=== PATIENT | female | born 1995 | race Caucasian/White ===

== ENCOUNTER 2022-05-12 10:54 | Inpatient (IN) | payer OTHER, SELFPAY ==
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
[2022-05-12 11:31] VITALS: BP 104/47; BP 118/78; PULSE 67; PULSE 80; RESP 16; TEMP 36.3; O2SAT 98; BMI 17.7
[2022-05-12 12:54] LABS: MANUAL DIFF FLAG NO
[2022-05-12 12:56] LABS: Basophils Percent Auto 0.4 % (0-2); Eosinophils Percent Auto 0.1 % (0-4); Hematocrit 42.8 % (37.0-47.0); Hemoglobin 14.8 g/dl (12.0-16.0); Imm Gran Abs Auto 0.03 X10*3/uL (0.00-0.03); Imm Gran Pct Auto 0.4 % (0.0-0.4); Lymphocytes Absolute Auto 1.2 X10*3/uL (1.2-4.9); Mean Corpuscular HGB Conc 34.6 g/dl (31.0-35.0); Mean Corpuscular Hemoglobin 31.3 pg (27.0-33.0); Mean Corpuscular Volume 90.5 fL (80.0-98.0); Mean Platelet Volume 9.2 fL (9.4-12.3); Monocytes Absolute Auto 0.3 X10*3/uL (0.1-1.2); Monocytes Percent Auto 3.8 % (2-11); Neutrophils Absolute Auto 5.9 x10*3/uL (2.0-8.3); Neutrophils Percent Auto 79.3 % (45-73); Platelet Count 359 X10*3/uL (160-400); Red Blood Count 4.73 X10*6/uL (4.20-5.50); Red Cell Distribution Width 13.5 % (11.0-16.0); White Blood Count 7.4 X10*3/uL (4.8-10.8)
[2022-05-12 13:26] LABS: Alanine Aminotransferase 75 U/L (0-31); Albumin Level 5.3 g/dL (3.5-5.0); Alkaline Phosphatase 77 U/L (39-117); Anion Gap 17 (12-20); Aspartate Amino Transferase 19 U/L (5-31); Bilirubin Total 1.7 mg/dL (0.0-1.0); Blood Urea Nitrogen 18 mg/dL (9-16); Calcium 9.9 mg/dL (8.4-10.2); Carbon Dioxide 23 mmol/L (22-29); Chloride 102 mmol/L (96-108); Creatinine Clr Calc Pharmacy 67.7; Estimated Glomerular Filt Rate > 60; Ethanol < 10 mg/dL; Glucose Random 238 mg/dL (60-115); Potassium 3.9 mmol/L (3.3-5.1); Sodium 138 mmol/L (135-145); Total Protein 8.4 g/dL (6.5-8.0)
[2022-05-12 14:09] LABS: Acetaminophen LAB < 1 mcg/mL (<30); Salicylate < 5.0 mg/dL (15-30)
--- NOTE | 2022-05-12 15:33 | MHC.CARE ---
Care Team attempted to meet with pt in Pod room 4, however, pt requested to meet at a later time because she is tired and wants to rest.
--- NOTE | 2022-05-12 17:12 | MHC.CARE ---
Care Team attempted to meet with pt in Pod room 4, however, pt was asleep. Purpose of visit was to complete an evaluation with pt. T/w will re-attempt to meet with pt at a later time.
[2022-05-12 23:13] LABS: COVID-19 Test Negative (Negative)
[2022-05-12 23:20] VITALS: BP 114/77; PULSE 68; RESP 16; TEMP 36.5; O2SAT 98
[2022-05-13] MEDS: LORazepam 1 MG TABLET 2 MG PO (00:09)
--- NOTE | 2022-05-13 06:26 | PC.NURSE ---
Patient slept through the night, no distress observed/reported, thought content paranoid, med rec completed however per mother patient has not been taking her medication, Ativan 2 mg PO administered at 0009 with positive effect, behavior non concerning, disposition per care team is section 12 inpatient bed search, urine pending, VSS, will continue to monitor.
[2022-05-13 12:20] LABS: Appearance Urine Clear; Color Urine Yellow; Glucose Urine UA Negative (Negative); Leukocyte Esterase Urine Negative (Negative); Nitrite Urine Negative (Negative); PH 5.5 (5.0-9.0); Specific Gravity - Urine 1.025 (1.005-1.025); Urine Blood Negative (Negative); Urine Ketones Negative (Negative); Urine Protein Negative (Neg-Trace)
[2022-05-13 12:21] LABS: UPreg QC Valid YES; Urine Pregnancy NEGATIVE (NEGATIVE)
[2022-05-13 12:26] VITALS: BP 116/77; PULSE 107; RESP 16; O2SAT 95
[2022-05-13 12:31] LABS: Amphetamine Screen Urine Not Detected (Not Detect); Barbiturates, Urine Not Detected (Not Detect); Benzodiazepines Screen Urine Not Detected (Not Detect); Cannabinoid Screen Urine POSITIVE (Not Detect); Cocaine Screen Urine Not Detected (Not Detect); Fentanyl, urine Not Detected (Not Detect); Opiate Screen Urine Not Detected (Not Detect); Phencyclidine Screen Urine Not Detected (Not Detect)
--- NOTE | 2022-05-13 12:46 | PC.NURSE ---
nurse to nurse given
[2022-05-13 17:20] VITALS: BP 123/74; PULSE 95; TEMP 36.6
[2022-05-13] MEDS: OLANZapine 10 MG TABLET PO (21:18)
[2022-05-13] MEDS: hydrOXYzine HCL 25 MG TABLET PO (21:19)
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
[2022-05-14 08:07] VITALS: BP 100/55; PULSE 72; RESP 16; TEMP 36.8; O2SAT 96
[2022-05-14 08:25] LABS: Estimated Average Glucose 91 mg/dL; Hemoglobin A1c % 4.8 %
[2022-05-14 08:46] LABS: Alanine Aminotransferase 42 U/L (0-31); Albumin Level 4.2 g/dL (3.5-5.0); Alkaline Phosphatase 61 U/L (39-117); Anion Gap 15 (12-20); Aspartate Amino Transferase 15 U/L (5-31); Bilirubin Total 0.7 mg/dL (0.0-1.0); Blood Urea Nitrogen 13 mg/dL (9-16); Calcium 9.2 mg/dL (8.4-10.2); Carbon Dioxide 24 mmol/L (22-29); Chloride 104 mmol/L (96-108); Cholesterol 191 mg/dL; Creatinine Clr Calc Pharmacy 93.2; Estimated Glomerular Filt Rate > 60; Glucose Fasting 89 mg/dL (60-99); HDL Cholesterol 56 mg/dL; LDL Cholesterol Calculated 127 mg/dl; Potassium 4.2 mmol/L (3.3-5.1); Sodium 139 mmol/L (135-145); Total Protein 6.7 g/dL (6.5-8.0); Triglycerides 40 mg/dL
[2022-05-14 08:51] LABS: Free T4 (Free Thyroxine) 1.09 ng/dL (0.71-1.85); Thyroid Stimulating Hormone 0.78 uIU/mL (0.32-4.0)
[2022-05-14 09:01] LABS: Folate 8.9 ng/mL (> or = 4.0); Vitamin B12 277 pg/mL (200-900)
[2022-05-14] MEDS: hydrOXYzine HCL 25 MG TABLET PO ×2 (09:06→20:04)
[2022-05-14] MEDS: Cyanocobalamin (Vitamin B-12) 100 MCG TABLET PO (09:06)
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
[2022-05-14 17:20] VITALS: BP 120/74; PULSE 97; TEMP 36.6
[2022-05-14] MEDS: OLANZapine 10 MG TABLET PO (20:04)
[2022-05-15 00:29] VITALS: TEMP 37.1
[2022-05-15 06:00] VITALS: BP 125/66; PULSE 104; RESP 14; TEMP 36.4; O2SAT 96
[2022-05-15] MEDS: Cyanocobalamin (Vitamin B-12) 100 MCG TABLET PO (08:35)
[2022-05-15] MEDS: hydrOXYzine HCL 25 MG TABLET PO ×2 (08:35→20:32)
--- NOTE | 2022-05-15 10:15 | PC.NURSE ---
PT signed a three-day notice on 05/15. Up 05/18.
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
[2022-05-15 18:00] VITALS: BP 122/79; PULSE 82; RESP 16; TEMP 36.4; O2SAT 99
[2022-05-15] MEDS: OLANZapine 7.5 MG TABLET 15 MG PO (20:32)
[2022-05-16 08:30] VITALS: BP 118/72; PULSE 88; RESP 18; TEMP 36.7; O2SAT 98
[2022-05-16] MEDS: Cyanocobalamin (Vitamin B-12) 100 MCG TABLET PO (10:16)
[2022-05-16] MEDS: hydrOXYzine HCL 25 MG TABLET PO ×2 (10:17→21:44)
[2022-05-16] MEDS: Milk of Magnesia 30 ML ORAL.SUSP PO (11:25)
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
[2022-05-16 18:00] VITALS: BP 145/84; PULSE 100; TEMP 36.6; O2SAT 96
[2022-05-16] MEDS: bisacodyL 5 MG TABLET.DR 10 MG PO (19:24)
[2022-05-16] MEDS: Divalproex Sodium ER 500 MG TAB.ER.24H PO (21:44)
[2022-05-16] MEDS: OLANZapine 10 MG TABLET PO (21:44)
[2022-05-17] MEDS: Cyanocobalamin (Vitamin B-12) 100 MCG TABLET PO (08:41)
[2022-05-17] MEDS: hydrOXYzine HCL 25 MG TABLET PO ×2 (08:41→21:47)
[2022-05-17] MEDS: Milk of Magnesia 30 ML ORAL.SUSP PO (09:50)
[2022-05-17 09:52] VITALS: BP 128/68; PULSE 119; TEMP 37.1; O2SAT 95
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
[2022-05-17 18:00] VITALS: BP 112/63; PULSE 83; RESP 18; TEMP 36.3; O2SAT 98
[2022-05-17] MEDS: Divalproex Sodium ER 500 MG TAB.ER.24H PO (21:47)
[2022-05-17] MEDS: OLANZapine 10 MG TABLET PO (21:48)
[2022-05-18 07:00] VITALS: BMI 18.3
--- NOTE | 2022-05-18 07:07 | HO.PSYCHPN ---
Subjective Subjective Date of Service: 05/18/22 Reason For Visit: Depression Subjective Notes: Conditional Voluntary Healthcare Proxy: No Guardianship: No Medical Problems Affecting Mental Status: No Interim History: Edita would like discharge to return to [place] with her parents when they arrive on 05/19. She has written a list to review with her mother, indicating that she will take medications, attend rehab, stop cannabis and comply with rules which have been set at home. Mother has been talking with Luis F ADAMS and family will not accept this plan-pt will need to remain and transfer to longer term rehab from [facility]-mother has indicated [facility] or [place]. Edita continues to limit the amount of medication she will take. She reports not feeling the environment of the psychiatric unit is beneficial for her to improve. She also is concerned for the health of her cat, which family has found and are making arrangements for care. Medication Compliance: Yes Side effects from medications: No Attending Groups: No Review of Systems Acute medical concerns: No Medical Review of Systems: unchanged Mental Status Exam Mental Status Exam Patient Orientation: Person, Place, Time and Situation Level of Consciousness: Alert Patient Behavior: Talkative and Good Eye Contact Mood Description: Suspicious, Withdrawn and Apprehensive Affect Description: Apprehensive Patient Cognition Impaired: No Ability to Follow Directions: Good Speech Pattern: Spontaneous Speech Memory Description: Remote Impaired and Episodic Impaired Hallucinations: None Delusions: Present Perceptual Disturbances: Depersonalization and Derealization Thought Process: Illogical, Rumination and Goal Oriented Thought Content: positive for Obsessional Thoughts, positive for Circumstantial, positive for Goal Oriented, positive for Perseveration and positive for Preoccupation Depressive Symptoms: Low Self Esteem and Difficulty Concentrating Judgement: Poor Diagnostics Vital Signs (24Hr): Vital Signs - 24 hr 05/17/22 09:52 05/17/22 18:00 Temperature 98.7 F 97.3 F Pulse Rate 119 H 83 Respiratory Rate 18 Blood Pressure 128/68 112/63 Pulse Oximetry 95 98 Oxygen Delivery Method Room Air Room Air BMI result Body Mass Index 17.7 Labs Results: 05/12/22 12:47 05/14/22 07:53 Medications Medications Current Medications Acetaminophen (Acetaminophen 325 Mg Tablet) 650 mg PO Q6H PRN PRN Reason: Headache/Pain Mild Scale (1-3) Al Hydroxide/Mg Hydroxide (Magnesium Hydrox/Alum Hydrox 30 Ml Oral.Susp) 30 ml PO Q6H PRN PRN Reason: Heartburn/Nausea Cyanocobalamin (Cyanocobalamin (Vitamin B-12) 100 Mcg Tablet) 100 mcg PO DAILY [facility] Last Admin: 05/17/22 08:41 Dose: 100 mcg Divalproex Sodium (Divalproex Sodium Er 500 Mg Tab.Er.24h) 500 mg PO BEDTIME [facility] Last Admin: 05/17/22 21:47 Dose: 500 mg Hydroxyzine HCl (Hydroxyzine Hcl 25 Mg Tablet) 25 mg PO BID [facility] Last Admin: 05/17/22 21:47 Dose: 25 mg Hydroxyzine HCl (Hydroxyzine Hcl 50 Mg Tablet) 50 mg PO Q6H PRN PRN Reason: Anxiety Magnesium Hydroxide (Milk Of Magnesia 30 Ml Oral.Susp) 30 ml PO DAILY PRN PRN Reason: Constipation Last Admin: 05/17/22 09:50 Dose: 30 ml Olanzapine (Olanzapine 5 Mg Tablet) 5 mg PO BID PRN PRN Reason: psychosis, severe anxiety Olanzapine (Olanzapine 10 Mg Tablet) 10 mg PO BEDTIME [facility] Last Admin: 05/17/22 21:48 Dose: 10 mg Trazodone HCl (Trazodone Hcl 50 Mg Tablet) 50 mg PO BEDTIME PRN PRN Reason: Insomnia Allergies Allergies Allergy/AdvReac Type Severity Reaction Status Date / Time Penicillins AdvReac Unknown Verified 05/14/22 02:05 Assessment & Plan Assessment & Plan (1) Bipolar affective, manic, severe w/ psych: Status: Acute Code(s): F31.2 - Bipolar disorder, current episode manic severe with psychotic features Plan Admit to 15 minute checks Collaterals Start Zyprexa 10 mg HS and 5 mg BID PRN. Group and milieu treatment Disposition planning 05/15/22- Increase Olanzapine to 15 mg HS Begin reality testing with pt regarding Mr. Way's relationship as outlined in his email response. Three day notice, possible section seven 05/16/22- Depakote ER 500 mg HS Decrease Olanzapine to 10 mg HS 05/17/22- Continue current plan 05/18/22- Pt attempting to negotiate with parents to return to [place]. Parents decline at this time Pt would benefit from medication titration. She refuses at this time. I spent minutes with the patient and/or on the patient floor today, greater than?50% of which was spent counseling/coordinating care. Patient educated on: medication risk/benefits Informed Consent: understands and further education needed Reason for contiued inpatient stay Substantial Risk for: inability to function and rapid decompensation
[2022-05-18 08:16] VITALS: BP 110/69; PULSE 95; TEMP 36.4; O2SAT 96
[2022-05-18] MEDS: Cyanocobalamin (Vitamin B-12) 100 MCG TABLET PO (08:19)
[2022-05-18] MEDS: hydrOXYzine HCL 25 MG TABLET PO ×2 (08:19→19:17)
[2022-05-18] MEDS: OLANZapine 5 MG TABLET PO (10:03)
[2022-05-18 16:02] VITALS: BP 113/76; PULSE 82; TEMP 36.4
[2022-05-18] MEDS: Divalproex Sodium ER 500 MG TAB.ER.24H PO (19:17)
[2022-05-18] MEDS: OLANZapine 10 MG TABLET PO (19:17)
[2022-05-18] MEDS: traZODone HCL 50 MG TABLET PO (20:47)
[2022-05-19 06:00] VITALS: BP 104/56; PULSE 95; RESP 18
[2022-05-19] MEDS: Cyanocobalamin (Vitamin B-12) 100 MCG TABLET PO (09:07)
[2022-05-19] MEDS: hydrOXYzine HCL 25 MG TABLET PO ×2 (09:07→19:55)
--- NOTE | 2022-05-19 17:00 | P.PNPSI_ITS ---
Subjective Subjective Date of Service: 05/19/22 Reason For Visit: Depression Subjective Notes: Conditional Voluntary Healthcare Proxy: No Guardianship: No Medical Problems Affecting Mental Status: No Interim History: Discussed parents refusal to have her return to [place] with Edita and Luis F urias [employer]. Pt accepting of this decision. Parents will visit this weekend. Pt agreeable to rehab. Prefers [place] as [place] sounds too psychiatric . Continues to exhibit difficulty understanding what is needed to appropriately treat this illness and is expressing ongoing resistance. Medication Compliance: Yes Side effects from medications: No Attending Groups: No Review of Systems Acute medical concerns: No Medical Review of Systems: unchanged Mental Status Exam Mental Status Exam Patient Orientation: Person, Place, Time and Situation Level of Consciousness: Alert Patient Behavior: Talkative and Good Eye Contact Mood Description: Suspicious, Withdrawn and Apprehensive Affect Description: Apprehensive Patient Cognition Impaired: No Ability to Follow Directions: Good Speech Pattern: Spontaneous Speech Memory Description: Remote Impaired and Episodic Impaired Hallucinations: None Delusions: Present Perceptual Disturbances: Depersonalization and Derealization Thought Process: Illogical, Rumination and Goal Oriented Thought Content: positive for Obsessional Thoughts, positive for Circumstantial, positive for Goal Oriented, positive for Perseveration and positive for Preoccupation Depressive Symptoms: Low Self Esteem and Difficulty Concentrating Judgement: Poor Diagnostics Vital Signs (24Hr): Vital Signs - 24 hr 05/19/22 06:00 Pulse Rate 95 Respiratory Rate 18 Blood Pressure 104/56 L Oxygen Delivery Method Room Air BMI result Body Mass Index 18.3 Labs Results: 05/12/22 12:47 05/14/22 07:53 Medications Medications Current Medications Acetaminophen (Acetaminophen 325 Mg Tablet) 650 mg PO Q6H PRN PRN Reason: Headache/Pain Mild Scale (1-3) Al Hydroxide/Mg Hydroxide (Magnesium Hydrox/Alum Hydrox 30 Ml Oral.Susp) 30 ml PO Q6H PRN PRN Reason: Heartburn/Nausea Cyanocobalamin (Cyanocobalamin (Vitamin B-12) 100 Mcg Tablet) 100 mcg PO DAILY [facility] Last Admin: 05/19/22 09:07 Dose: 100 mcg Divalproex Sodium (Divalproex Sodium Er 500 Mg Tab.Er.24h) 500 mg PO BEDTIME [facility] Last Admin: 05/18/22 19:17 Dose: 500 mg Hydroxyzine HCl (Hydroxyzine Hcl 25 Mg Tablet) 25 mg PO BID [facility] Last Admin: 05/19/22 09:07 Dose: 25 mg Hydroxyzine HCl (Hydroxyzine Hcl 50 Mg Tablet) 50 mg PO Q6H PRN PRN Reason: Anxiety Magnesium Hydroxide (Milk Of Magnesia 30 Ml Oral.Susp) 30 ml PO DAILY PRN PRN Reason: Constipation Last Admin: 05/17/22 09:50 Dose: 30 ml Olanzapine (Olanzapine 5 Mg Tablet) 5 mg PO BID PRN PRN Reason: psychosis, severe anxiety Last Admin: 05/18/22 10:03 Dose: 5 mg Olanzapine (Olanzapine 10 Mg Tablet) 10 mg PO BEDTIME [facility] Last Admin: 05/18/22 19:17 Dose: 10 mg Trazodone HCl (Trazodone Hcl 50 Mg Tablet) 50 mg PO BEDTIME PRN PRN Reason: Insomnia Last Admin: 05/18/22 20:47 Dose: 50 mg Allergies Allergies Allergy/AdvReac Type Severity Reaction Status Date / Time Penicillins AdvReac Unknown Verified 05/14/22 02:05 Assessment & Plan Assessment & Plan (1) Bipolar affective, manic, severe w/ psych: Status: Acute Code(s): F31.2 - Bipolar disorder, current episode manic severe with psychotic features Plan Admit to M5 15 minute checks Collaterals Start Zyprexa 10 mg HS and 5 mg BID PRN. Group and milieu treatment Disposition planning 05/15/22- Increase Olanzapine to 15 mg HS Begin reality testing with pt regarding Mr. Way's relationship as outlined in his email response. Three day notice, possible section seven 05/16/22- Depakote ER 500 mg HS Decrease Olanzapine to 10 mg HS 05/17/22- Continue current plan 05/19/22- Education regarding illness. Pt will see parents over the weekend. Team is looking at rehab possibilities. I spent minutes with the patient and/or on the patient floor today, greater than?50% of which was spent counseling/coordinating care. Patient educated on: medication risk/benefits and therapeutic strategies Informed Consent: further education needed Reason for contiued inpatient stay Substantial Risk for: rapid decompensation
[2022-05-19 18:43] VITALS: BP 119/69; PULSE 99; TEMP 36.3
[2022-05-19] MEDS: OLANZapine 10 MG TABLET PO (19:55)
[2022-05-19] MEDS: Divalproex Sodium ER 500 MG TAB.ER.24H PO (19:55)
[2022-05-20] MEDS: hydrOXYzine HCL 25 MG TABLET PO ×2 (09:30→20:17)
[2022-05-20] MEDS: Cyanocobalamin (Vitamin B-12) 100 MCG TABLET PO (09:30)
[2022-05-20] MEDS: Multivitamin with Minerals Liq 15 ML LIQUID PO (09:30)
[2022-05-20 09:52] VITALS: BP 114/71; PULSE 80; RESP 18; TEMP 36.4; O2SAT 98
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
[2022-05-20 18:00] VITALS: BP 112/63; PULSE 101; TEMP 36.8; O2SAT 97
[2022-05-20] MEDS: OLANZapine 10 MG TABLET PO (20:17)
[2022-05-20] MEDS: Divalproex Sodium ER 500 MG TAB.ER.24H PO (20:17)
[2022-05-21] MEDS: hydrOXYzine HCL 50 MG TABLET PO (06:10)
[2022-05-21] MEDS: Cyanocobalamin (Vitamin B-12) 100 MCG TABLET PO (09:23)
[2022-05-21] MEDS: hydrOXYzine HCL 25 MG TABLET PO ×2 (09:23→19:50)
[2022-05-21] MEDS: cloNIDine HCL 0.1 MG TABLET PO ×2 (11:35→20:05)
[2022-05-21 13:21] VITALS: BP 96/56; PULSE 102; RESP 18; TEMP 37; O2SAT 98
--- NOTE | 2022-05-21 16:04 | P.PNPSI_ITS ---
Subjective Subjective Date of Service: 05/21/22 Reason For Visit: Depression Interim History: Patient reports that she has bad anxiety throughout the day. She has bad nightmares at night as well. Anesthesiologist discussed clonidine and its risks/side effects and how it could possibly help with anxiety during the day. Patient would like to try it if her blood pressure is high enough. Mental Status Exam Mental Status Exam Patient Orientation: Person, Place, Time and Situation Level of Consciousness: Alert Patient Behavior: Guarded, Talkative and Good Eye Contact Mood Description: Anxious and Apprehensive Affect Description: Apprehensive Patient Cognition Impaired: No Ability to Follow Directions: Fair Speech Pattern: Spontaneous Speech Memory Description: Remote Impaired and Episodic Impaired Hallucinations: None Delusions: Present (not clear) Perceptual Disturbances: Depersonalization and Derealization Thought Process: Goal Oriented Thought Content: positive for Obsessional Thoughts and positive for Goal Oriented Depressive Symptoms: Low Self Esteem and Difficulty Concentrating Judgement: Poor Judgement and Insight: impaired Diagnostics Vital Signs (24Hr): Vital Signs - 24 hr 05/20/22 18:00 05/21/22 13:21 Temperature 98.2 F 98.6 F Pulse Rate 101 H 102 H Respiratory Rate 18 Blood Pressure 112/63 96/56 L Pulse Oximetry 97 98 Oxygen Delivery Method Room Air Room Air BMI result Body Mass Index 18.3 Labs Results: 05/12/22 12:47 05/14/22 07:53 Medications Medications Current Medications Acetaminophen (Acetaminophen 325 Mg Tablet) 650 mg PO Q6H PRN PRN Reason: Headache/Pain Mild Scale (1-3) Al Hydroxide/Mg Hydroxide (Magnesium Hydrox/Alum Hydrox 30 Ml Oral.Susp) 30 ml PO Q6H PRN PRN Reason: Heartburn/Nausea Clonidine HCl (Clonidine Hcl 0.1 Mg Tablet) 0.1 mg PO Q4H PRN; Protocol PRN Reason: anxiety Last Admin: 05/21/22 11:35 Dose: 0.1 mg Cyanocobalamin (Cyanocobalamin (Vitamin B-12) 100 Mcg Tablet) 100 mcg PO DAILY [facility] Last Admin: 05/21/22 09:23 Dose: 100 mcg Divalproex Sodium (Divalproex Sodium Er 500 Mg Tab.Er.24h) 500 mg PO BEDTIME [facility] Last Admin: 05/20/22 20:17 Dose: 500 mg Hydroxyzine HCl (Hydroxyzine Hcl 25 Mg Tablet) 25 mg PO BID [facility] Last Admin: 05/21/22 09:23 Dose: 25 mg Hydroxyzine HCl (Hydroxyzine Hcl 50 Mg Tablet) 50 mg PO Q6H PRN PRN Reason: Anxiety Last Admin: 05/21/22 06:10 Dose: 50 mg Magnesium Hydroxide (Milk Of Magnesia 30 Ml Oral.Susp) 30 ml PO DAILY PRN PRN Reason: Constipation Last Admin: 05/17/22 09:50 Dose: 30 ml Olanzapine (Olanzapine 5 Mg Tablet) 5 mg PO BID PRN PRN Reason: psychosis, severe anxiety Last Admin: 05/18/22 10:03 Dose: 5 mg Olanzapine (Olanzapine 10 Mg Tablet) 10 mg PO BEDTIME [facility] Last Admin: 05/20/22 20:17 Dose: 10 mg Trazodone HCl (Trazodone Hcl 50 Mg Tablet) 50 mg PO BEDTIME PRN PRN Reason: Insomnia Last Admin: 05/18/22 20:47 Dose: 50 mg Allergies Allergies Allergy/AdvReac Type Severity Reaction Status Date / Time Penicillins AdvReac Unknown Verified 05/14/22 02:05 Assessment & Plan Assessment & Plan (1) Bipolar affective, manic, severe w/ psych: Status: Acute Code(s): F31.2 - Bipolar disorder, current episode manic severe with psychotic features Plan Admit to M5 15 minute checks [employer] Start Zyprexa 10 mg HS and 5 mg BID PRN. Group and milieu treatment Disposition planning 05/15/22- Increase Olanzapine to 15 mg HS Begin reality testing with pt regarding Mr. Way's relationship as outlined in his email response. Three day notice, possible section seven 05/16/22- Depakote ER 500 mg HS Decrease Olanzapine to 10 mg HS 05/17/22- Continue current plan 05/19/22- Education regarding illness. Pt will see parents over the weekend. Team is looking at rehab possibilities. 05/20 guarded and not much for engaging; Continue current treatment plan 05/21 says she has bad anxiety -add clonidine 0.1 mg Q 4 p.r.n.; if BP too low can try 0.05 mg I spent minutes with the patient and/or on the patient floor today, greater than?50% of which was spent counseling/coordinating care. Patient educated on: diagnosis and medication risk/benefits Informed Consent: understands Reason for contiued inpatient stay Substantial Risk for: rapid decompensation
[2022-05-21 18:00] VITALS: BP 101/63; PULSE 89; RESP 16; TEMP 36.6; O2SAT 97
[2022-05-21] MEDS: OLANZapine 10 MG TABLET PO (19:50)
[2022-05-21] MEDS: Divalproex Sodium ER 500 MG TAB.ER.24H PO (19:51)
[2022-05-22] MEDS: Acetaminophen 325 MG TABLET 650 MG PO (02:29)
[2022-05-22] MEDS: hydrOXYzine HCL 25 MG TABLET PO ×2 (08:06→20:32)
[2022-05-22] MEDS: Cyanocobalamin (Vitamin B-12) 100 MCG TABLET PO (08:06)
[2022-05-22 08:19] VITALS: BP 100/63; PULSE 73; RESP 14; TEMP 36.8; O2SAT 98
[2022-05-22] MEDS: Ibuprofen 800 MG TABLET PO (14:11)
[2022-05-22] MEDS: cloNIDine HCL 0.1 MG TABLET PO ×2 (14:11→20:32)
--- NOTE | 2022-05-22 17:55 | P.PNPSI_ITS ---
Subjective Subjective Date of Service: 05/22/22 Reason For Visit: Depression Subjective Notes: Conditional Voluntary and 3 Day Healthcare Proxy: No Guardianship: No Medical Problems Affecting Mental Status: No Interim History: Reports clonidine trial was helpful over the weekend and will continue this. Requested Ibuprofen prn which was ordered. Agrees to [employer] application for admission-Family and pt are negotiating aftercare planning at this time. Three day notice submitted. Olanzapine 2.5 mg prn ordered for pt. Currently she is not willing to modify any standing dosages. Consistent in her report of not wanting to be on a psychiatric unit. Medication Compliance: Yes Side effects from medications: No Attending Groups: No Review of Systems Acute medical concerns: No Medical Review of Systems: unchanged Mental Status Exam Mental Status Exam Patient Appearance: Appropriate Patient Orientation: Person, Place, Time and Situation Level of Consciousness: Alert Patient Behavior: Talkative Mood Description: Withdrawn and Depressed Affect Description: Flat Patient Cognition Impaired: No Ability to Follow Directions: Fair Speech Pattern: Spontaneous Speech Memory Description: Episodic Impaired Hallucinations: None (denies) Delusions: Paranoid Ideation Perceptual Disturbances: Depersonalization and Derealization Thought Process: Distracted and Rumination Thought Content: positive for Circumstantial, positive for Suicidal Ideation (denies) and positive for Homicidal Ideation (denies) Depressive Symptoms: Increased Anxiety and Thoughts of /Suicide (denies) Abnormal Motor Activity Signs and Symptoms: Restlessness Judgement: Fair Diagnostics Vital Signs (24Hr): Vital Signs - 24 hr 05/21/22 18:00 05/22/22 08:19 Temperature 98 F 98.2 F Pulse Rate 89 73 Respiratory Rate 16 14 Blood Pressure 101/63 100/63 Pulse Oximetry 97 98 Oxygen Delivery Method Room Air Room Air BMI result Body Mass Index 18.3 Labs Results: 05/12/22 12:47 05/14/22 07:53 Medications Medications Current Medications Acetaminophen (Acetaminophen 325 Mg Tablet) 650 mg PO Q6H PRN PRN Reason: Headache/Pain Mild Scale (1-3) Last Admin: 05/22/22 02:29 Dose: 650 mg Al Hydroxide/Mg Hydroxide (Magnesium Hydrox/Alum Hydrox 30 Ml Oral.Susp) 30 ml PO Q6H PRN PRN Reason: Heartburn/Nausea Clonidine HCl (Clonidine Hcl 0.1 Mg Tablet) 0.1 mg PO Q4H PRN; Protocol PRN Reason: anxiety Last Admin: 05/22/22 14:11 Dose: 0.1 mg Cyanocobalamin (Cyanocobalamin (Vitamin B-12) 100 Mcg Tablet) 100 mcg PO DAILY [facility] Last Admin: 05/22/22 08:06 Dose: 100 mcg Divalproex Sodium (Divalproex Sodium Er 500 Mg Tab.Er.24h) 500 mg PO BEDTIME [facility] Last Admin: 05/21/22 19:51 Dose: 500 mg Hydroxyzine HCl (Hydroxyzine Hcl 25 Mg Tablet) 25 mg PO BID [facility] Last Admin: 05/22/22 08:06 Dose: 25 mg Hydroxyzine HCl (Hydroxyzine Hcl 50 Mg Tablet) 50 mg PO Q6H PRN PRN Reason: Anxiety Last Admin: 05/21/22 06:10 Dose: 50 mg Ibuprofen (Ibuprofen 800 Mg Tablet) 800 mg PO Q8H PRN PRN Reason: Pain, Mild (Pain Scale 1-3) Last Admin: 05/22/22 14:11 Dose: 800 mg Magnesium Hydroxide (Milk Of Magnesia 30 Ml Oral.Susp) 30 ml PO DAILY PRN PRN Reason: Constipation Last Admin: 05/17/22 09:50 Dose: 30 ml Olanzapine (Olanzapine 10 Mg Tablet) 10 mg PO BEDTIME [facility] Last Admin: 05/21/22 19:50 Dose: 10 mg Olanzapine (Olanzapine 2.5 Mg Tablet) 2.5 mg PO BID PRN PRN Reason: psychosis, severe anxiety Trazodone HCl (Trazodone Hcl 50 Mg Tablet) 50 mg PO BEDTIME PRN PRN Reason: Insomnia Last Admin: 05/18/22 20:47 Dose: 50 mg Allergies Allergies Allergy/AdvReac Type Severity Reaction Status Date / Time Penicillins AdvReac Unknown Verified 05/14/22 02:05 Assessment & Plan Assessment & Plan (1) Bipolar affective, manic, severe w/ psych: Status: Acute Code(s): F31.2 - Bipolar disorder, current episode manic severe with psychotic features Plan Admit to M5 15 minute checks [employer] Start Zyprexa 10 mg HS and 5 mg BID PRN. Group and milieu treatment Disposition planning 05/15/22- Increase Olanzapine to 15 mg HS Begin reality testing with pt regarding Mr. Way's relationship as outlined in his email response. Three day notice, possible section seven 05/16/22- Depakote ER 500 mg HS Decrease Olanzapine to 10 mg HS 05/17/22- Continue current plan 05/19/22- Education regarding illness. Pt will see parents over the weekend. Team is looking at rehab possibilities. 05/20 guarded and not much for engaging; Continue current treatment plan 05/21 says she has bad anxiety -add clonidine 0.1 mg Q 4 p.r.n.; if BP too low can try 0.05 mg 05/22/22 continue current regime Pt/Family request [facility]. I spent minutes with the patient and/or on the patient floor today, greater than?50% of which was spent counseling/coordinating care. Patient educated on: therapeutic strategies Informed Consent: further education needed Reason for contiued inpatient stay Substantial Risk for: inability to function and rapid decompensation
[2022-05-22 20:30] VITALS: BP 132/79; PULSE 74; TEMP 36.3
[2022-05-22] MEDS: OLANZapine 10 MG TABLET PO (20:32)
[2022-05-22] MEDS: Divalproex Sodium ER 500 MG TAB.ER.24H PO (20:33)
--- NOTE | 2022-05-22 22:12 | PC.NURSE ---
Pt signed a 3-day notice of intent to revoke conditional voluntary admission.
[2022-05-23] MEDS: cloNIDine HCL 0.1 MG TABLET PO ×2 (03:05→20:35)
[2022-05-23 08:06] VITALS: BP 94/56; PULSE 67; RESP 14; TEMP 37; O2SAT 96
[2022-05-23] MEDS: hydrOXYzine HCL 25 MG TABLET PO ×2 (08:59→20:35)
[2022-05-23] MEDS: Cyanocobalamin (Vitamin B-12) 100 MCG TABLET PO (09:00)
--- NOTE | 2022-05-23 13:26 | PC.NURSE ---
05/23/22 pt retracted 3day notice, returned to voluntary status, Regina Nicholas, [employer] T[employer], and Provider are aware.
--- NOTE | 2022-05-23 16:11 | P.PNPSI_ITS ---
Subjective Subjective Date of Service: 05/23/22 Reason For Visit: Depression Subjective Notes: 3 Day Healthcare Proxy: No Guardianship: No Medical Problems Affecting Mental Status: No Interim History: Pt retracted three day notice of intent. She is willing to attend a residential program. Parents have decided against [email or web address] and are considering [employer]. Pt willing to take parents advice. 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 Feeling bored and understimulated on the unit. Hoping for discharge [facility]. Medication Compliance: Yes Side effects from medications: No Attending Groups: No Review of Systems Acute medical concerns: No Medical Review of Systems: unchanged Mental Status Exam Mental Status Exam Patient Appearance: Appropriate Patient Orientation: Person, Place, Time and Situation Level of Consciousness: Alert Patient Behavior: Talkative Mood Description: Withdrawn and Depressed Affect Description: Flat Patient Cognition Impaired: No Ability to Follow Directions: Fair Speech Pattern: Spontaneous Speech Memory Description: Episodic Impaired Hallucinations: None (denies) Delusions: Paranoid Ideation Perceptual Disturbances: Depersonalization and Derealization Thought Process: Distracted and Rumination Thought Content: positive for Circumstantial, positive for Suicidal Ideation (denies) and positive for Homicidal Ideation (denies) Depressive Symptoms: Increased Anxiety and Thoughts of /Suicide (denies) Abnormal Motor Activity Signs and Symptoms: Restlessness Judgement: Fair Diagnostics Vital Signs (24Hr): Vital Signs - 24 hr 05/22/22 20:30 05/23/22 08:06 Temperature 97.3 F 98.6 F Pulse Rate 74 67 Respiratory Rate 14 Blood Pressure 132/79 94/56 L Pulse Oximetry 96 Oxygen Delivery Method Room Air BMI result Body Mass Index 18.3 Labs Results: 05/12/22 12:47 05/14/22 07:53 Medications Medications Current Medications Acetaminophen (Acetaminophen 325 Mg Tablet) 650 mg PO Q6H PRN PRN Reason: Headache/Pain Mild Scale (1-3) Last Admin: 05/22/22 02:29 Dose: 650 mg Al Hydroxide/Mg Hydroxide (Magnesium Hydrox/Alum Hydrox 30 Ml Oral.Susp) 30 ml PO Q6H PRN PRN Reason: Heartburn/Nausea Clonidine HCl (Clonidine Hcl 0.1 Mg Tablet) 0.1 mg PO Q4H PRN; Protocol PRN Reason: anxiety Last Admin: 05/23/22 03:05 Dose: 0.1 mg Cyanocobalamin (Cyanocobalamin (Vitamin B-12) 100 Mcg Tablet) 100 mcg PO DAILY [facility] Last Admin: 05/23/22 09:00 Dose: 100 mcg Divalproex Sodium (Divalproex Sodium Er 500 Mg Tab.Er.24h) 500 mg PO BEDTIME [facility] Last Admin: 05/22/22 20:33 Dose: 500 mg Hydroxyzine HCl (Hydroxyzine Hcl 25 Mg Tablet) 25 mg PO BID [facility] Last Admin: 05/23/22 08:59 Dose: 25 mg Hydroxyzine HCl (Hydroxyzine Hcl 50 Mg Tablet) 50 mg PO Q6H PRN PRN Reason: Anxiety Last Admin: 05/21/22 06:10 Dose: 50 mg Ibuprofen (Ibuprofen 800 Mg Tablet) 800 mg PO Q8H PRN PRN Reason: Pain, Mild (Pain Scale 1-3) Last Admin: 05/22/22 14:11 Dose: 800 mg Magnesium Hydroxide (Milk Of Magnesia 30 Ml Oral.Susp) 30 ml PO DAILY PRN PRN Reason: Constipation Last Admin: 05/17/22 09:50 Dose: 30 ml Olanzapine (Olanzapine 10 Mg Tablet) 10 mg PO BEDTIME [facility] Last Admin: 05/22/22 20:32 Dose: 10 mg Olanzapine (Olanzapine 2.5 Mg Tablet) 2.5 mg PO BID PRN PRN Reason: psychosis, severe anxiety Trazodone HCl (Trazodone Hcl 50 Mg Tablet) 50 mg PO BEDTIME PRN PRN Reason: Insomnia Last Admin: 05/18/22 20:47 Dose: 50 mg Allergies Allergies Allergy/AdvReac Type Severity Reaction Status Date / Time Penicillins AdvReac Unknown Verified 05/14/22 02:05 Assessment & Plan Assessment & Plan (1) Bipolar affective, manic, severe w/ psych: Status: Acute Code(s): F31.2 - Bipolar disorder, current episode manic severe with psychotic features Plan Admit to M5 15 minute checks [employer] Start Zyprexa 10 mg HS and 5 mg BID PRN. Group and milieu treatment Disposition planning 05/15/22- Increase Olanzapine to 15 mg HS Begin reality testing with pt regarding Mr. Way's relationship as outlined in his email response. Three day notice, possible section seven 05/16/22- Depakote ER 500 mg HS Decrease Olanzapine to 10 mg HS 05/17/22- Continue current plan 05/19/22- Education regarding illness. Pt will see parents over the weekend. Team is looking at rehab possibilities. 05/20 guarded and not much for engaging; Continue current treatment plan 05/21 says she has bad anxiety -add clonidine 0.1 mg Q 4 p.r.n.; if BP too low can try 0.05 mg 05/22/22 continue current regime Pt/Family request [facility]. 05/23/22 Continue current regime-pt will not trial any changes. Family requests application for [employer] which team is working on. I spent minutes with the patient and/or on the patient floor today, greater than?50% of which was spent counseling/coordinating care. Patient educated on: medication risk/benefits and therapeutic strategies Informed Consent: further education needed Reason for contiued inpatient stay Substantial Risk for: rapid decompensation
[2022-05-23 18:09] VITALS: BP 104/53; PULSE 98; TEMP 37.1
[2022-05-23] MEDS: Divalproex Sodium ER 500 MG TAB.ER.24H PO (20:35)
[2022-05-23] MEDS: OLANZapine 10 MG TABLET PO (20:36)
[2022-05-24] MEDS: hydrOXYzine HCL 50 MG TABLET PO (02:24)
[2022-05-24 09:19] VITALS: BP 108/57; PULSE 88; RESP 16; TEMP 37; O2SAT 95
[2022-05-24] MEDS: Cyanocobalamin (Vitamin B-12) 100 MCG TABLET PO (09:57)
[2022-05-24] MEDS: hydrOXYzine HCL 25 MG TABLET PO ×2 (09:57→19:38)
[2022-05-24] MEDS: cloNIDine HCL 0.1 MG TABLET PO (16:14)
[2022-05-24 17:20] VITALS: BP 109/52; PULSE 97; RESP 16; TEMP 36.3; O2SAT 97
--- NOTE | 2022-05-24 17:58 | HO.PSYCHPN ---
Subjective Subjective Date of Service: 05/24/22 Reason For Visit: Depression Subjective Notes: Conditional Voluntary Healthcare Proxy: No Guardianship: No Medical Problems Affecting Mental Status: No Interim History: Reports feeling bored on the unit. Groups are repetitive. Hoping for acceptance to [facility] so she may discharge. No SI, HI. Mood is flat. Reports medications are tolerated, effective. Clear in her goals-rehab, independent living, return to work. Wanting to support herself. Discussed her history working in [employer] and her success in this field-hoping to return to it. Wanting to separate from parents and live independently. Apartment in [place] will be closed. Pt is feeling good that family was able to place her cat in an appropriate home. Medication Compliance: Yes Side effects from medications: No Attending Groups: No Review of Systems Acute medical concerns: No Medical Review of Systems: unchanged Review of Systems Review of Systems Yes all other systems are reviewed and are negative Constitutional: Reports no additional constitutional complaints Mental Status Exam Mental Status Exam Patient Appearance: Appropriate Patient Orientation: Person, Place, Time and Situation Level of Consciousness: Alert Patient Behavior: Appropriate, Talkative, Cooperative and Good Eye Contact Mood Description: Flat Affect Description: Flat Patient Cognition Impaired: No Ability to Follow Directions: Good Speech Pattern: Spontaneous Speech Memory Description: Episodic Impaired Hallucinations: None Delusions: Not Present Thought Process: Goal Oriented Thought Content: positive for Goal Oriented Depressive Symptoms: Thoughts of /Suicide (denies) Judgement: Good Diagnostics Vital Signs (24Hr): Vital Signs - 24 hr 05/23/22 18:09 05/24/22 09:19 05/24/22 17:20 Temperature 98.7 F 98.6 F 97.4 F Pulse Rate 98 88 97 Respiratory Rate 16 16 Blood Pressure 104/53 L 108/57 L 109/52 L Pulse Oximetry 95 97 Oxygen Delivery Method Room Air Room Air BMI result Body Mass Index 18.3 Labs Results: 05/12/22 12:47 05/14/22 07:53 Medications Medications Current Medications Acetaminophen (Acetaminophen 325 Mg Tablet) 650 mg PO Q6H PRN PRN Reason: Headache/Pain Mild Scale (1-3) Last Admin: 05/22/22 02:29 Dose: 650 mg Al Hydroxide/Mg Hydroxide (Magnesium Hydrox/Alum Hydrox 30 Ml Oral.Susp) 30 ml PO Q6H PRN PRN Reason: Heartburn/Nausea Clonidine HCl (Clonidine Hcl 0.1 Mg Tablet) 0.1 mg PO Q4H PRN; Protocol PRN Reason: anxiety Last Admin: 05/24/22 16:14 Dose: 0.1 mg Cyanocobalamin (Cyanocobalamin (Vitamin B-12) 100 Mcg Tablet) 100 mcg PO DAILY [facility] Last Admin: 05/24/22 09:57 Dose: 100 mcg Divalproex Sodium (Divalproex Sodium Er 500 Mg Tab.Er.24h) 500 mg PO BEDTIME [facility] Last Admin: 05/23/22 20:35 Dose: 500 mg Hydroxyzine HCl (Hydroxyzine Hcl 25 Mg Tablet) 25 mg PO BID [facility] Last Admin: 05/24/22 09:57 Dose: 25 mg Hydroxyzine HCl (Hydroxyzine Hcl 50 Mg Tablet) 50 mg PO Q6H PRN PRN Reason: Anxiety Last Admin: 05/24/22 02:24 Dose: 50 mg Ibuprofen (Ibuprofen 800 Mg Tablet) 800 mg PO Q8H PRN PRN Reason: Pain, Mild (Pain Scale 1-3) Last Admin: 05/22/22 14:11 Dose: 800 mg Magnesium Hydroxide (Milk Of Magnesia 30 Ml Oral.Susp) 30 ml PO DAILY PRN PRN Reason: Constipation Last Admin: 05/17/22 09:50 Dose: 30 ml Olanzapine (Olanzapine 10 Mg Tablet) 10 mg PO BEDTIME [facility] Last Admin: 05/23/22 20:36 Dose: 10 mg Olanzapine (Olanzapine 2.5 Mg Tablet) 2.5 mg PO BID PRN PRN Reason: psychosis, severe anxiety Trazodone HCl (Trazodone Hcl 50 Mg Tablet) 50 mg PO BEDTIME PRN PRN Reason: Insomnia Last Admin: 05/18/22 20:47 Dose: 50 mg Allergies Allergies Allergy/AdvReac Type Severity Reaction Status Date / Time Penicillins AdvReac Unknown Verified 05/14/22 02:05 Assessment & Plan Assessment & Plan (1) Bipolar affective, manic, severe w/ psych: Status: Acute Code(s): F31.2 - Bipolar disorder, current episode manic severe with psychotic features Plan Admit to M5 15 minute checks Collaterals Start Zyprexa 10 mg HS and 5 mg BID PRN. Group and milieu treatment Disposition planning 05/15/22- Increase Olanzapine to 15 mg HS Begin reality testing with pt regarding Mr. Grobe's relationship as outlined in his email response. Three day notice, possible section seven 05/16/22- Depakote ER 500 mg HS Decrease Olanzapine to 10 mg HS 05/17/22- Continue current plan 05/19/22- Education regarding illness. Pt will see parents over the weekend. Team is looking at rehab possibilities. 05/20 guarded and not much for engaging; Continue current treatment plan 05/21 says she has bad anxiety -add clonidine 0.1 mg Q 4 p.r.n.; if BP too low can try 0.05 mg 05/22/22 continue current regime Pt/Family request [facility]. 05/23/22 Continue current regime-pt will not trial any changes. Family requests application for [facility] which team is working on. 05/24/22 Continue current regime-referral to [facility]. I spent minutes with the patient and/or on the patient floor today, greater than?50% of which was spent counseling/coordinating care. Patient educated on: therapeutic strategies Informed Consent: understands Reason for contiued inpatient stay Substantial Risk for: rapid decompensation
[2022-05-24] MEDS: OLANZapine 10 MG TABLET PO (19:38)
[2022-05-24] MEDS: Divalproex Sodium ER 500 MG TAB.ER.24H PO (19:38)
[2022-05-25] MEDS: cloNIDine HCL 0.1 MG TABLET PO ×2 (02:11→15:36)
[2022-05-25 06:00] VITALS: BP 108/55; PULSE 82; RESP 18; O2SAT 98
[2022-05-25 07:00] VITALS: BMI 19.3
[2022-05-25] MEDS: Cyanocobalamin (Vitamin B-12) 100 MCG TABLET PO (08:27)
[2022-05-25] MEDS: hydrOXYzine HCL 25 MG TABLET PO ×2 (08:27→20:01)
--- NOTE | 2022-05-25 08:50 | MHC.CLN ---
RE: CONSULT RECEIVED NUTRITION CONSULT: RUMA HAS REQUESTED THAT HER PORTIONS BE EVALUATED FOR AN INCREASE AT EACH MEAL. 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
[2022-05-25 15:36] VITALS: BP 101/64; PULSE 98; RESP 18; O2SAT 99
--- NOTE | 2022-05-25 16:28 | P.PNPSI_ITS ---
Subjective Subjective Date of Service: 05/25/22 Reason For Visit: Depression Subjective Notes: Conditional Voluntary Healthcare Proxy: No Guardianship: No Medical Problems Affecting Mental Status: No Interim History: My mom wants to be kept up to date. 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 application. 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 Medication Compliance: Yes Side effects from medications: No Attending Groups: No Review of Systems Acute medical concerns: No Medical Review of Systems: unchanged Mental Status Exam Mental Status Exam Patient Appearance: Appropriate Patient Orientation: Person, Place, Time and Situation Level of Consciousness: Alert Patient Behavior: Appropriate, Talkative, Cooperative and Good Eye Contact Mood Description: Flat Affect Description: Flat Patient Cognition Impaired: No Ability to Follow Directions: Good Speech Pattern: Spontaneous Speech Memory Description: Episodic Impaired Hallucinations: None Delusions: Not Present Thought Process: Goal Oriented Thought Content: positive for Goal Oriented Depressive Symptoms: Thoughts of /Suicide (denies) Judgement: Good Diagnostics Vital Signs (24Hr): Vital Signs - 24 hr 05/24/22 17:20 05/25/22 06:00 05/25/22 15:36 Temperature 97.4 F Pulse Rate 97 82 98 Respiratory Rate 16 18 18 Blood Pressure 109/52 L 108/55 L 101/64 Pulse Oximetry 97 98 99 Oxygen Delivery Method Room Air Room Air Room Air BMI result Body Mass Index 19.3 Labs Results: 05/12/22 12:47 05/14/22 07:53 Medications Medications Current Medications Acetaminophen (Acetaminophen 325 Mg Tablet) 650 mg PO Q6H PRN PRN Reason: Headache/Pain Mild Scale (1-3) Last Admin: 05/22/22 02:29 Dose: 650 mg Al Hydroxide/Mg Hydroxide (Magnesium Hydrox/Alum Hydrox 30 Ml Oral.Susp) 30 ml PO Q6H PRN PRN Reason: Heartburn/Nausea Clonidine HCl (Clonidine Hcl 0.1 Mg Tablet) 0.1 mg PO Q4H PRN; Protocol PRN Reason: anxiety Last Admin: 05/25/22 15:36 Dose: 0.1 mg Cyanocobalamin (Cyanocobalamin (Vitamin B-12) 100 Mcg Tablet) 100 mcg PO DAILY [facility] Last Admin: 05/25/22 08:27 Dose: 100 mcg Divalproex Sodium (Divalproex Sodium Er 500 Mg Tab.Er.24h) 500 mg PO BEDTIME [facility] Last Admin: 05/24/22 19:38 Dose: 500 mg Hydroxyzine HCl (Hydroxyzine Hcl 25 Mg Tablet) 25 mg PO BID [facility] Last Admin: 05/25/22 08:27 Dose: 25 mg Hydroxyzine HCl (Hydroxyzine Hcl 50 Mg Tablet) 50 mg PO Q6H PRN PRN Reason: Anxiety Last Admin: 05/24/22 02:24 Dose: 50 mg Ibuprofen (Ibuprofen 800 Mg Tablet) 800 mg PO Q8H PRN PRN Reason: Pain, Mild (Pain Scale 1-3) Last Admin: 05/22/22 14:11 Dose: 800 mg Magnesium Hydroxide (Milk Of Magnesia 30 Ml Oral.Susp) 30 ml PO DAILY PRN PRN Reason: Constipation Last Admin: 05/17/22 09:50 Dose: 30 ml Olanzapine (Olanzapine 10 Mg Tablet) 10 mg PO BEDTIME [facility] Last Admin: 05/24/22 19:38 Dose: 10 mg Olanzapine (Olanzapine 2.5 Mg Tablet) 2.5 mg PO BID PRN PRN Reason: psychosis, severe anxiety Trazodone HCl (Trazodone Hcl 50 Mg Tablet) 50 mg PO BEDTIME PRN PRN Reason: Insomnia Last Admin: 05/18/22 20:47 Dose: 50 mg Allergies Allergies Allergy/AdvReac Type Severity Reaction Status Date / Time Penicillins AdvReac Unknown Verified 05/14/22 02:05 Assessment & Plan Assessment & Plan (1) Bipolar affective, manic, severe w/ psych: Status: Acute Code(s): F31.2 - Bipolar disorder, current episode manic severe with psychotic features Plan Admit to M5 15 minute checks Collaterals Start Zyprexa 10 mg HS and 5 mg BID PRN. Group and milieu treatment Disposition planning 05/15/22- Increase Olanzapine to 15 mg HS Begin reality testing with pt regarding Mr. Way's relationship as outlined in his email response. Three day notice, possible section seven 05/16/22- Depakote ER 500 mg HS Decrease Olanzapine to 10 mg HS 05/17/22- Continue current plan 05/19/22- Education regarding illness. Pt will see parents over the weekend. Team is looking at rehab possibilities. 05/20 guarded and not much for engaging; Continue current treatment plan 05/21 says she has bad anxiety -add clonidine 0.1 mg Q 4 p.r.n.; if BP too low can try 0.05 mg 05/22/22 continue current regime Pt/Family request [place]. 05/23/22 Continue current regime-pt will not trial any changes. Family requests application for [employer] which team is working on. 05/24/22 Continue current regime-referral to [employer]. 05/25/22 Pt has identified her goals for [employer] Get Approved For application. I spent minutes with the patient and/or on the patient floor today, greater than?50% of which was spent counseling/coordinating care. Informed Consent: understands Reason for contiued inpatient stay Substantial Risk for: inability to function and rapid decompensation
[2022-05-25] MEDS: Divalproex Sodium ER 500 MG TAB.ER.24H PO (20:01)
[2022-05-25] MEDS: OLANZapine 10 MG TABLET PO (20:01)
[2022-05-26 06:00] VITALS: BP 116/61; PULSE 94; RESP 18; O2SAT 99
[2022-05-26] MEDS: Cyanocobalamin (Vitamin B-12) 100 MCG TABLET PO (08:13)
[2022-05-26] MEDS: hydrOXYzine HCL 25 MG TABLET PO ×2 (08:13→18:58)
[2022-05-26] MEDS: cloNIDine HCL 0.1 MG TABLET PO ×2 (08:19→17:45)
--- NOTE | 2022-05-26 16:05 | P.PNPSI_ITS ---
Subjective Subjective Date of Service: 05/26/22 Reason For Visit: Depression Subjective Notes: Conditional Voluntary Healthcare Proxy: No Guardianship: No Medical Problems Affecting Mental Status: No Interim History: Tells team she is never seen for care. Met with pt. No i did not say that. I want to know if you sent in my application. Affirmed that team has sent in [facility] application. Discussed with pt her resistance to continue to work with meds, work with groups, do further therapy work due to not feeling comfortable, reports of feeling bored. Asked what would help. Discharge . Pt may have the option of going to her grandmother's home in [place] with her mother to wait for acceptance to residential. Discussed that the program may want her to come directly from the hospital, however we could check in to this. Discussed if there was any therapy work she was willing to do while waiting-she declines. She did agree that we could order some reading material (fiction) that she would find comforting which was initiated. Medication Compliance: Yes Side effects from medications: No Attending Groups: No Review of Systems Acute medical concerns: No Medical Review of Systems: unchanged Mental Status Exam Mental Status Exam Patient Appearance: Appropriate Patient Orientation: Person, Place, Time and Situation Level of Consciousness: Alert Patient Behavior: Appropriate, Talkative, Cooperative and Good Eye Contact Mood Description: Flat Affect Description: Flat Patient Cognition Impaired: No Ability to Follow Directions: Good Speech Pattern: Spontaneous Speech Memory Description: Episodic Impaired Hallucinations: None Delusions: Not Present Thought Process: Goal Oriented Thought Content: positive for Goal Oriented Depressive Symptoms: Thoughts of /Suicide (denies) Judgement: Good Diagnostics Vital Signs (24Hr): Vital Signs - 24 hr 05/26/22 06:00 Pulse Rate 94 Respiratory Rate 18 Blood Pressure 116/61 Pulse Oximetry 99 Oxygen Delivery Method Room Air BMI result Body Mass Index 19.3 Labs Results: 05/12/22 12:47 05/14/22 07:53 Medications Medications Current Medications Acetaminophen (Acetaminophen 325 Mg Tablet) 650 mg PO Q6H PRN PRN Reason: Headache/Pain Mild Scale (1-3) Last Admin: 05/22/22 02:29 Dose: 650 mg Al Hydroxide/Mg Hydroxide (Magnesium Hydrox/Alum Hydrox 30 Ml Oral.Susp) 30 ml PO Q6H PRN PRN Reason: Heartburn/Nausea Clonidine HCl (Clonidine Hcl 0.1 Mg Tablet) 0.1 mg PO Q4H PRN; Protocol PRN Reason: anxiety Last Admin: 05/26/22 08:19 Dose: 0.1 mg Cyanocobalamin (Cyanocobalamin (Vitamin B-12) 100 Mcg Tablet) 100 mcg PO DAILY [facility] Last Admin: 05/26/22 08:13 Dose: 100 mcg Divalproex Sodium (Divalproex Sodium Er 500 Mg Tab.Er.24h) 500 mg PO BEDTIME [facility] Last Admin: 05/25/22 20:01 Dose: 500 mg Hydroxyzine HCl (Hydroxyzine Hcl 25 Mg Tablet) 25 mg PO BID [facility] Last Admin: 05/26/22 08:13 Dose: 25 mg Hydroxyzine HCl (Hydroxyzine Hcl 50 Mg Tablet) 50 mg PO Q6H PRN PRN Reason: Anxiety Last Admin: 05/24/22 02:24 Dose: 50 mg Ibuprofen (Ibuprofen 800 Mg Tablet) 800 mg PO Q8H PRN PRN Reason: Pain, Mild (Pain Scale 1-3) Last Admin: 05/22/22 14:11 Dose: 800 mg Magnesium Hydroxide (Milk Of Magnesia 30 Ml Oral.Susp) 30 ml PO DAILY PRN PRN Reason: Constipation Last Admin: 05/17/22 09:50 Dose: 30 ml Olanzapine (Olanzapine 10 Mg Tablet) 10 mg PO BEDTIME [facility] Last Admin: 05/25/22 20:01 Dose: 10 mg Olanzapine (Olanzapine 2.5 Mg Tablet) 2.5 mg PO BID PRN PRN Reason: psychosis, severe anxiety Trazodone HCl (Trazodone Hcl 50 Mg Tablet) 50 mg PO BEDTIME PRN PRN Reason: Insomnia Last Admin: 05/18/22 20:47 Dose: 50 mg Allergies Allergies Allergy/AdvReac Type Severity Reaction Status Date / Time Penicillins AdvReac Unknown Verified 05/14/22 02:05 Assessment & Plan Assessment & Plan (1) Bipolar affective, manic, severe w/ psych: Status: Acute Code(s): F31.2 - Bipolar disorder, current episode manic severe with psychotic features Plan Admit to M5 15 minute checks Collaterals Start Zyprexa 10 mg HS and 5 mg BID PRN. Group and milieu treatment Disposition planning 05/15/22- Increase Olanzapine to 15 mg HS Begin reality testing with pt regarding Mr. Way's relationship as outlined in his email response. Three day notice, possible section seven 05/16/22- Depakote ER 500 mg HS Decrease Olanzapine to 10 mg HS 05/17/22- Continue current plan 05/19/22- Education regarding illness. Pt will see parents over the weekend. Team is looking at rehab possibilities. 05/20 guarded and not much for engaging; Continue current treatment plan 05/21 says she has bad anxiety -add clonidine 0.1 mg Q 4 p.r.n.; if BP too low can try 0.05 mg 05/22/22 continue current regime Pt/Family request [place]. 05/23/22 Continue current regime-pt will not trial any changes. Family requests application for [facility] which team is working on. 05/24/22 Continue current regime-referral to [facility]. 05/25/22 Pt has identified her goals for [employer] application. 05/26/22 Pt anxious for discharge. She may have the option to stay at her grandmother's home in [place] prior to residential admission. Will see if this will effect program admit requirements. I spent minutes with the patient and/or on the patient floor today, greater than?50% of which was spent counseling/coordinating care. Informed Consent: understands Reason for contiued inpatient stay Substantial Risk for: rapid decompensation
[2022-05-26 16:11] VITALS: BP 103/60; PULSE 89; TEMP 36.7; O2SAT 97
[2022-05-26 17:47] VITALS: BP 104/59; PULSE 81
[2022-05-26] MEDS: OLANZapine 10 MG TABLET PO (18:58)
[2022-05-26] MEDS: Divalproex Sodium ER 500 MG TAB.ER.24H PO (18:58)
[2022-05-27] MEDS: Cyanocobalamin (Vitamin B-12) 100 MCG TABLET PO (08:14)
[2022-05-27] MEDS: hydrOXYzine HCL 25 MG TABLET PO ×2 (08:14→20:50)
[2022-05-27 08:22] VITALS: BP 108/76; PULSE 85; RESP 16; TEMP 37.1; O2SAT 99
--- NOTE | 2022-05-27 09:37 | HO.PSYCHPN ---
Subjective Subjective Date of Service: 05/27/22 Reason For Visit: Depression Subjective Notes: Conditional Voluntary Interim History: Patient was seen and discussed in rounds today. Records, labs and plans were reviewed. She continues to be negative, dismissive. She complained of having night the nightmares and has done well on prazosin before. I will initiate 2 mg nightly. Side effects were reviewed. She is awaiting to hear about her application to [employer] that the family is willing to support. No other changes were made today Review of Systems Review of Systems Except for sleep and nightmares Yes all other systems are reviewed and are negative Constitutional: Reports no additional constitutional complaints Diagnostics Vital Signs (24Hr): Vital Signs - 24 hr 05/26/22 16:11 05/26/22 17:47 Temperature 98.1 F Pulse Rate 89 81 Blood Pressure 103/60 104/59 L Pulse Oximetry 97 Oxygen Delivery Method Room Air BMI result Body Mass Index 19.3 Labs Results: 05/12/22 12:47 05/14/22 07:53 Medications Medications Current Medications Acetaminophen (Acetaminophen 325 Mg Tablet) 650 mg PO Q6H PRN PRN Reason: Headache/Pain Mild Scale (1-3) Last Admin: 05/22/22 02:29 Dose: 650 mg Al Hydroxide/Mg Hydroxide (Magnesium Hydrox/Alum Hydrox 30 Ml Oral.Susp) 30 ml PO Q6H PRN PRN Reason: Heartburn/Nausea Clonidine HCl (Clonidine Hcl 0.1 Mg Tablet) 0.1 mg PO Q4H PRN; Protocol PRN Reason: anxiety Last Admin: 05/26/22 17:45 Dose: 0.1 mg Cyanocobalamin (Cyanocobalamin (Vitamin B-12) 100 Mcg Tablet) 100 mcg PO DAILY [facility] Last Admin: 05/27/22 08:14 Dose: 100 mcg Divalproex Sodium (Divalproex Sodium Er 500 Mg Tab.Er.24h) 500 mg PO BEDTIME [facility] Last Admin: 05/26/22 18:58 Dose: 500 mg Hydroxyzine HCl (Hydroxyzine Hcl 25 Mg Tablet) 25 mg PO BID [facility] Last Admin: 05/27/22 08:14 Dose: 25 mg Hydroxyzine HCl (Hydroxyzine Hcl 50 Mg Tablet) 50 mg PO Q6H PRN PRN Reason: Anxiety Last Admin: 05/24/22 02:24 Dose: 50 mg Ibuprofen (Ibuprofen 800 Mg Tablet) 800 mg PO Q8H PRN PRN Reason: Pain, Mild (Pain Scale 1-3) Last Admin: 05/22/22 14:11 Dose: 800 mg Magnesium Hydroxide (Milk Of Magnesia 30 Ml Oral.Susp) 30 ml PO DAILY PRN PRN Reason: Constipation Last Admin: 05/17/22 09:50 Dose: 30 ml Olanzapine (Olanzapine 10 Mg Tablet) 10 mg PO BEDTIME [facility] Last Admin: 05/26/22 18:58 Dose: 10 mg Olanzapine (Olanzapine 2.5 Mg Tablet) 2.5 mg PO BID PRN PRN Reason: psychosis, severe anxiety Trazodone HCl (Trazodone Hcl 50 Mg Tablet) 50 mg PO BEDTIME PRN PRN Reason: Insomnia Last Admin: 05/18/22 20:47 Dose: 50 mg Allergies Allergies Allergy/AdvReac Type Severity Reaction Status Date / Time Penicillins AdvReac Unknown Verified 05/14/22 02:05 Assessment & Plan Assessment & Plan (1) Bipolar affective, manic, severe w/ psych: Status: Acute Code(s): F31.2 - Bipolar disorder, current episode manic severe with psychotic features Plan Admit to M5 15 minute checks Collaterals Start Zyprexa 10 mg HS and 5 mg BID PRN. Group and milieu treatment Disposition planning 05/15/22- Increase Olanzapine to 15 mg HS Begin reality testing with pt regarding Mr. Way's relationship as outlined in his email response. Three day notice, possible section seven 05/16/22- Depakote ER 500 mg HS Decrease Olanzapine to 10 mg HS 05/17/22- Continue current plan 05/19/22- Education regarding illness. Pt will see parents over the weekend. Team is looking at rehab possibilities. 05/20 guarded and not much for engaging; Continue current treatment plan 05/21 says she has bad anxiety -add clonidine 0.1 mg Q 4 p.r.n.; if BP too low can try 0.05 mg 05/22/22 continue current regime Pt/Family request [facility]. 05/23/22 Continue current regime-pt will not trial any changes. Family requests application for [facility] which team is working on. 05/24/22 Continue current regime-referral to [facility]. 05/25/22 Pt has identified her goals for [employer] application. 05/26/22 Pt anxious for discharge. She may have the option to stay at her grandmother's home in [place] prior to residential admission. Will see if this will effect program admit requirements. 05/27: Continue current regimen and plans. Add prazosin 2 mg q.h.s. I spent minutes with the patient and/or on the patient floor today, greater than?50% of which was spent counseling/coordinating care. Patient educated on: medication risk/benefits Reason for contiued inpatient stay Substantial Risk for: med/psych decompensation
[2022-05-27 20:45] VITALS: BP 112/70; PULSE 99; RESP 16; TEMP 36.1
[2022-05-27] MEDS: Divalproex Sodium ER 500 MG TAB.ER.24H PO (20:50)
[2022-05-27] MEDS: Prazosin HCL 1 MG CAPSULE 2 MG PO (20:50)
[2022-05-27] MEDS: OLANZapine 10 MG TABLET PO (20:50)
[2022-05-27] MEDS: cloNIDine HCL 0.1 MG TABLET PO (20:50)
[2022-05-28 06:00] VITALS: BP 122/77; PULSE 78; RESP 14; TEMP 36.8; O2SAT 99
[2022-05-28] MEDS: hydrOXYzine HCL 25 MG TABLET PO ×2 (08:14→21:46)
[2022-05-28] MEDS: Cyanocobalamin (Vitamin B-12) 100 MCG TABLET PO (08:16)
--- NOTE | 2022-05-28 09:02 | P.PNPSI_ITS ---
Subjective Subjective Date of Service: 05/28/22 Reason For Visit: Depression Subjective Notes: Conditional Voluntary Interim History: Patient was seen and discussed in rounds today. Records, labs and plans were reviewed. She has been medication compliant. Eating and sleeping adequately. No SI. No auditory or visual hallucinations. She has been irritable at times. No dangerous behaviors. No side effects to prazosin which appears to have been somewhat helpful. I did not change the dose today. No changes were made today Review of Systems Review of Systems Except for sleep and nightmares Yes all other systems are reviewed and are negative Constitutional: Reports no additional constitutional complaints Diagnostics Vital Signs (24Hr): Vital Signs - 24 hr 05/27/22 20:45 Temperature 97.0 F Pulse Rate 99 Respiratory Rate 16 Blood Pressure 112/70 BMI result Body Mass Index 19.3 Labs Results: 05/12/22 12:47 05/14/22 07:53 Medications Medications Current Medications Acetaminophen (Acetaminophen 325 Mg Tablet) 650 mg PO Q6H PRN PRN Reason: Headache/Pain Mild Scale (1-3) Last Admin: 05/22/22 02:29 Dose: 650 mg Al Hydroxide/Mg Hydroxide (Magnesium Hydrox/Alum Hydrox 30 Ml Oral.Susp) 30 ml PO Q6H PRN PRN Reason: Heartburn/Nausea Clonidine HCl (Clonidine Hcl 0.1 Mg Tablet) 0.1 mg PO Q4H PRN; Protocol PRN Reason: anxiety Last Admin: 05/27/22 20:50 Dose: 0.1 mg Cyanocobalamin (Cyanocobalamin (Vitamin B-12) 100 Mcg Tablet) 100 mcg PO DAILY [facility] Last Admin: 05/28/22 08:16 Dose: 100 mcg Divalproex Sodium (Divalproex Sodium Er 500 Mg Tab.Er.24h) 500 mg PO BEDTIME [facility] Last Admin: 05/27/22 20:50 Dose: 500 mg Hydroxyzine HCl (Hydroxyzine Hcl 25 Mg Tablet) 25 mg PO BID [facility] Last Admin: 05/28/22 08:14 Dose: 25 mg Hydroxyzine HCl (Hydroxyzine Hcl 50 Mg Tablet) 50 mg PO Q6H PRN PRN Reason: Anxiety Last Admin: 05/24/22 02:24 Dose: 50 mg Ibuprofen (Ibuprofen 800 Mg Tablet) 800 mg PO Q8H PRN PRN Reason: Pain, Mild (Pain Scale 1-3) Last Admin: 05/22/22 14:11 Dose: 800 mg Magnesium Hydroxide (Milk Of Magnesia 30 Ml Oral.Susp) 30 ml PO DAILY PRN PRN Reason: Constipation Last Admin: 05/17/22 09:50 Dose: 30 ml Olanzapine (Olanzapine 10 Mg Tablet) 10 mg PO BEDTIME [facility] Last Admin: 05/27/22 20:50 Dose: 10 mg Olanzapine (Olanzapine 2.5 Mg Tablet) 2.5 mg PO BID PRN PRN Reason: psychosis, severe anxiety Prazosin HCl (Prazosin Hcl 1 Mg Capsule) 2 mg PO BEDTIME [facility]; Protocol Last Admin: 05/27/22 20:50 Dose: 2 mg Trazodone HCl (Trazodone Hcl 50 Mg Tablet) 50 mg PO BEDTIME PRN PRN Reason: Insomnia Last Admin: 05/18/22 20:47 Dose: 50 mg Allergies Allergies Allergy/AdvReac Type Severity Reaction Status Date / Time Penicillins AdvReac Unknown Verified 05/14/22 02:05 Assessment & Plan Assessment & Plan (1) Bipolar affective, manic, severe w/ psych: Status: Acute Code(s): F31.2 - Bipolar disorder, current episode manic severe with psychotic features Plan Admit to M5 15 minute checks Collaterals Start Zyprexa 10 mg HS and 5 mg BID PRN. Group and milieu treatment Disposition planning 05/15/22- Increase Olanzapine to 15 mg HS Begin reality testing with pt regarding Mr. Way's relationship as outlined in his email response. Three day notice, possible section seven 05/16/22- Depakote ER 500 mg HS Decrease Olanzapine to 10 mg HS 05/17/22- Continue current plan 05/19/22- Education regarding illness. Pt will see parents over the weekend. Team is looking at rehab possibilities. 05/20 guarded and not much for engaging; Continue current treatment plan 05/21 says she has bad anxiety -add clonidine 0.1 mg Q 4 p.r.n.; if BP too low can try 0.05 mg 05/22/22 continue current regime Pt/Family request [facility]. 05/23/22 Continue current regime-pt will not trial any changes. Family requests application for [employer] which team is working on. 05/24/22 Continue current regime-referral to [employer]. 05/25/22 Pt has identified her goals for [employer] application. 05/26/22 Pt anxious for discharge. She may have the option to stay at her grandmother's home in [place] prior to residential admission. Will see if this will effect program admit requirements. 05/27: Continue current regimen and plans. Add prazosin 2 mg q.h.s. 05/28: Continue current regimen and plans. No changes were made today I spent minutes with the patient and/or on the patient floor today, greater than?50% of which was spent counseling/coordinating care. Patient educated on: medication risk/benefits Reason for contiued inpatient stay Substantial Risk for: other
[2022-05-28] MEDS: Prazosin HCL 1 MG CAPSULE 2 MG PO (21:46)
[2022-05-28] MEDS: Divalproex Sodium ER 500 MG TAB.ER.24H PO (21:46)
[2022-05-28] MEDS: OLANZapine 10 MG TABLET PO (21:46)
[2022-05-28 21:51] VITALS: BP 112/70; PULSE 80; RESP 16; TEMP 36.3
[2022-05-28 22:40] VITALS: BP 116/76
[2022-05-28] MEDS: cloNIDine HCL 0.1 MG TABLET PO (22:46)
[2022-05-29 06:00] VITALS: BP 95/51; PULSE 97; RESP 14; TEMP 36.2; O2SAT 97
[2022-05-29] MEDS: Cyanocobalamin (Vitamin B-12) 100 MCG TABLET PO (08:21)
[2022-05-29] MEDS: hydrOXYzine HCL 25 MG TABLET PO ×2 (08:21→21:26)
--- NOTE | 2022-05-29 17:28 | P.PNPSI_ITS ---
Subjective Subjective Date of Service: 05/29/22 Reason For Visit: Depression Subjective Notes: Conditional Voluntary Healthcare Proxy: No Guardianship: No Medical Problems Affecting Mental Status: No Interim History: Reports Prazosin started over the weekend is tolerated. Keily Smith interview 06/02 11am They have let the team know they want pt to continue to titrate medications for improved mood stability while she remains in pt. Pt declines. She is ready to leave. Without wanting to make any changes or participate in groups. Medication Compliance: Yes Side effects from medications: No Attending Groups: No Review of Systems Acute medical concerns: No Medical Review of Systems: unchanged Mental Status Exam Mental Status Exam Patient Appearance: Appropriate Patient Orientation: Person, Place, Time and Situation Level of Consciousness: Alert Patient Behavior: Appropriate, Talkative, Cooperative and Good Eye Contact Mood Description: Flat Affect Description: Flat Patient Cognition Impaired: No Ability to Follow Directions: Good Speech Pattern: Spontaneous Speech Memory Description: Episodic Impaired Hallucinations: None Delusions: Not Present Thought Process: Goal Oriented Thought Content: positive for Goal Oriented Depressive Symptoms: Thoughts of /Suicide (denies) Judgement: Good Diagnostics Vital Signs (24Hr): Vital Signs - 24 hr 05/28/22 21:51 05/28/22 22:40 05/29/22 06:00 Temperature 97.3 F 97.2 F Pulse Rate 80 97 Respiratory Rate 16 14 Blood Pressure 112/70 116/76 95/51 L Pulse Oximetry 97 Oxygen Delivery Method Room Air BMI result Body Mass Index 19.3 Labs Results: 05/12/22 12:47 05/14/22 07:53 Medications Medications Current Medications Acetaminophen (Acetaminophen 325 Mg Tablet) 650 mg PO Q6H PRN PRN Reason: Headache/Pain Mild Scale (1-3) Last Admin: 05/22/22 02:29 Dose: 650 mg Al Hydroxide/Mg Hydroxide (Magnesium Hydrox/Alum Hydrox 30 Ml Oral.Susp) 30 ml PO Q6H PRN PRN Reason: Heartburn/Nausea Clonidine HCl (Clonidine Hcl 0.1 Mg Tablet) 0.1 mg PO Q4H PRN; Protocol PRN Reason: anxiety Last Admin: 05/28/22 22:46 Dose: 0.1 mg Cyanocobalamin (Cyanocobalamin (Vitamin B-12) 100 Mcg Tablet) 100 mcg PO DAILY [facility] Last Admin: 05/29/22 08:21 Dose: 100 mcg Divalproex Sodium (Divalproex Sodium Er 500 Mg Tab.Er.24h) 500 mg PO BEDTIME [facility] Last Admin: 05/28/22 21:46 Dose: 500 mg Hydroxyzine HCl (Hydroxyzine Hcl 25 Mg Tablet) 25 mg PO BID [facility] Last Admin: 05/29/22 08:21 Dose: 25 mg Hydroxyzine HCl (Hydroxyzine Hcl 50 Mg Tablet) 50 mg PO Q6H PRN PRN Reason: Anxiety Last Admin: 05/24/22 02:24 Dose: 50 mg Ibuprofen (Ibuprofen 800 Mg Tablet) 800 mg PO Q8H PRN PRN Reason: Pain, Mild (Pain Scale 1-3) Last Admin: 05/22/22 14:11 Dose: 800 mg Magnesium Hydroxide (Milk Of Magnesia 30 Ml Oral.Susp) 30 ml PO DAILY PRN PRN Reason: Constipation Last Admin: 05/17/22 09:50 Dose: 30 ml Olanzapine (Olanzapine 10 Mg Tablet) 10 mg PO BEDTIME [facility] Last Admin: 05/28/22 21:46 Dose: 10 mg Olanzapine (Olanzapine 2.5 Mg Tablet) 2.5 mg PO BID PRN PRN Reason: psychosis, severe anxiety Prazosin HCl (Prazosin Hcl 1 Mg Capsule) 2 mg PO BEDTIME [facility]; Protocol Last Admin: 05/28/22 21:46 Dose: 2 mg Trazodone HCl (Trazodone Hcl 50 Mg Tablet) 50 mg PO BEDTIME PRN PRN Reason: Insomnia Last Admin: 05/18/22 20:47 Dose: 50 mg Allergies Allergies Allergy/AdvReac Type Severity Reaction Status Date / Time Penicillins AdvReac Unknown Verified 05/14/22 02:05 Assessment & Plan Assessment & Plan (1) Bipolar affective, manic, severe w/ psych: Status: Acute Code(s): F31.2 - Bipolar disorder, current episode manic severe with psychotic features Plan Admit to M5 15 minute checks Collaterals Start Zyprexa 10 mg HS and 5 mg BID PRN. Group and milieu treatment Disposition planning 05/15/22- Increase Olanzapine to 15 mg HS Begin reality testing with pt regarding Mr. Way's relationship as outlined in his email response. Three day notice, possible section seven 05/16/22- Depakote ER 500 mg HS Decrease Olanzapine to 10 mg HS 05/17/22- Continue current plan 05/19/22- Education regarding illness. Pt will see parents over the weekend. Team is looking at rehab possibilities. 05/20 guarded and not much for engaging; Continue current treatment plan 05/21 says she has bad anxiety -add clonidine 0.1 mg Q 4 p.r.n.; if BP too low can try 0.05 mg 05/22/22 continue current regime Pt/Family request [facility]. 05/23/22 Continue current regime-pt will not trial any changes. Family requests application for [employer] which team is working on. 05/24/22 Continue current regime-referral to [employer]. 05/25/22 Pt has identified her goals for [employer] application. 05/26/22 Pt anxious for discharge. She may have the option to stay at her grandmother's home in [place] prior to residential admission. Will see if this will effect program admit requirements. 05/27: Continue current regimen and plans. Add prazosin 2 mg q.h.s. 05/28: Continue current regimen and plans. No changes were made today 05/29/22: Discharge planning. Pt not interested in making further adjustments in regime or attending groups. I am bored. I spent minutes with the patient and/or on the patient floor today, greater than?50% of which was spent counseling/coordinating care. Patient educated on: therapeutic strategies Informed Consent: understands Reason for contiued inpatient stay Substantial Risk for: inability to function and rapid decompensation
[2022-05-29 21:00] VITALS: BP 113/62; PULSE 82; TEMP 36.2
[2022-05-29] MEDS: OLANZapine 10 MG TABLET PO (21:27)
[2022-05-29] MEDS: Prazosin HCL 1 MG CAPSULE 2 MG PO (21:27)
[2022-05-29] MEDS: Divalproex Sodium ER 500 MG TAB.ER.24H PO (21:27)
[2022-05-30] MEDS: cloNIDine HCL 0.1 MG TABLET PO ×2 (01:51→22:52)
[2022-05-30] MEDS: Cyanocobalamin (Vitamin B-12) 100 MCG TABLET PO (08:24)
[2022-05-30] MEDS: hydrOXYzine HCL 25 MG TABLET PO ×2 (08:24→19:52)
[2022-05-30 18:00] VITALS: BP 119/66; PULSE 71; RESP 18; TEMP 36.1; O2SAT 97
[2022-05-30] MEDS: OLANZapine 10 MG TABLET PO (19:52)
[2022-05-30] MEDS: Prazosin HCL 1 MG CAPSULE 2 MG PO (19:52)
[2022-05-30] MEDS: Divalproex Sodium ER 500 MG TAB.ER.24H PO (19:52)
--- NOTE | 2022-05-30 20:09 | HO.PSYCHPN ---
Subjective Subjective Date of Service: 05/30/22 Reason For Visit: Depression Subjective Notes: Conditional Voluntary Healthcare Proxy: No Guardianship: No Medical Problems Affecting Mental Status: No Interim History: Team reports pt is discharge focused and not wanting to participate in milieu. Denies interest in DBT work, PTSD education, further coping skills training- I know all of that . Medication Compliance: Yes Side effects from medications: No Attending Groups: No Review of Systems Acute medical concerns: No Medical Review of Systems: unchanged Mental Status Exam Mental Status Exam Patient Appearance: Appropriate Patient Orientation: Person, Place, Time and Situation Level of Consciousness: Alert Patient Behavior: Appropriate, Talkative, Cooperative and Good Eye Contact Mood Description: Flat Affect Description: Flat Patient Cognition Impaired: No Ability to Follow Directions: Good Speech Pattern: Spontaneous Speech Memory Description: Episodic Impaired Hallucinations: None Delusions: Not Present Thought Process: Goal Oriented Thought Content: positive for Goal Oriented Depressive Symptoms: Thoughts of /Suicide (denies) Judgement: Good Diagnostics Vital Signs (24Hr): Vital Signs - 24 hr 05/29/22 21:00 05/30/22 18:00 Temperature 97.2 F 96.9 F Pulse Rate 82 71 Respiratory Rate 18 Blood Pressure 113/62 119/66 Pulse Oximetry 97 Oxygen Delivery Method Room Air BMI result Body Mass Index 19.3 Labs Results: 05/12/22 12:47 05/14/22 07:53 Medications Medications Current Medications Acetaminophen (Acetaminophen 325 Mg Tablet) 650 mg PO Q6H PRN PRN Reason: Headache/Pain Mild Scale (1-3) Last Admin: 05/22/22 02:29 Dose: 650 mg Al Hydroxide/Mg Hydroxide (Magnesium Hydrox/Alum Hydrox 30 Ml Oral.Susp) 30 ml PO Q6H PRN PRN Reason: Heartburn/Nausea Clonidine HCl (Clonidine Hcl 0.1 Mg Tablet) 0.1 mg PO Q4H PRN; Protocol PRN Reason: anxiety Last Admin: 05/30/22 01:51 Dose: 0.1 mg Cyanocobalamin (Cyanocobalamin (Vitamin B-12) 100 Mcg Tablet) 100 mcg PO DAILY [facility] Last Admin: 05/30/22 08:24 Dose: 100 mcg Divalproex Sodium (Divalproex Sodium Er 500 Mg Tab.Er.24h) 500 mg PO BEDTIME [facility] Last Admin: 05/30/22 19:52 Dose: 500 mg Hydroxyzine HCl (Hydroxyzine Hcl 25 Mg Tablet) 25 mg PO BID [facility] Last Admin: 05/30/22 19:52 Dose: 25 mg Hydroxyzine HCl (Hydroxyzine Hcl 50 Mg Tablet) 50 mg PO Q6H PRN PRN Reason: Anxiety Last Admin: 05/24/22 02:24 Dose: 50 mg Ibuprofen (Ibuprofen 800 Mg Tablet) 800 mg PO Q8H PRN PRN Reason: Pain, Mild (Pain Scale 1-3) Last Admin: 05/22/22 14:11 Dose: 800 mg Magnesium Hydroxide (Milk Of Magnesia 30 Ml Oral.Susp) 30 ml PO DAILY PRN PRN Reason: Constipation Last Admin: 05/17/22 09:50 Dose: 30 ml Olanzapine (Olanzapine 10 Mg Tablet) 10 mg PO BEDTIME [facility] Last Admin: 05/30/22 19:52 Dose: 10 mg Olanzapine (Olanzapine 2.5 Mg Tablet) 2.5 mg PO BID PRN PRN Reason: psychosis, severe anxiety Prazosin HCl (Prazosin Hcl 1 Mg Capsule) 2 mg PO BEDTIME [facility]; Protocol Last Admin: 05/30/22 19:52 Dose: 2 mg Trazodone HCl (Trazodone Hcl 50 Mg Tablet) 50 mg PO BEDTIME PRN PRN Reason: Insomnia Last Admin: 05/18/22 20:47 Dose: 50 mg Allergies Allergies Allergy/AdvReac Type Severity Reaction Status Date / Time Penicillins AdvReac Unknown Verified 05/14/22 02:05 Assessment & Plan Assessment & Plan (1) Bipolar affective, manic, severe w/ psych: Status: Acute Code(s): F31.2 - Bipolar disorder, current episode manic severe with psychotic features Plan Admit to M5 15 minute checks Collaterals Start Zyprexa 10 mg HS and 5 mg BID PRN. Group and milieu treatment Disposition planning 05/15/22- Increase Olanzapine to 15 mg HS Begin reality testing with pt regarding Mr. Way's relationship as outlined in his email response. Three day notice, possible section seven 05/16/22- Depakote ER 500 mg HS Decrease Olanzapine to 10 mg HS 05/17/22- Continue current plan 05/19/22- Education regarding illness. Pt will see parents over the weekend. Team is looking at rehab possibilities. 05/20 guarded and not much for engaging; Continue current treatment plan 05/21 says she has bad anxiety -add clonidine 0.1 mg Q 4 p.r.n.; if BP too low can try 0.05 mg 05/22/22 continue current regime Pt/Family request [facility]. 05/23/22 Continue current regime-pt will not trial any changes. Family requests application for [employer] which team is working on. 05/24/22 Continue current regime-referral to [facility]. 05/25/22 Pt has identified her goals for [employer] application. 05/26/22 Pt anxious for discharge. She may have the option to stay at her grandmother's home in [place] prior to residential admission. Will see if this will effect program admit requirements. 05/27: Continue current regimen and plans. Add prazosin 2 mg q.h.s. 05/28: Continue current regimen and plans. No changes were made today 05/29/22: Discharge planning I spent minutes with the patient and/or on the patient floor today, greater than?50% of which was spent counseling/coordinating care. Informed Consent: understands Reason for contiued inpatient stay Substantial Risk for: rapid decompensation
[2022-05-31] MEDS: hydrOXYzine HCL 25 MG TABLET PO ×2 (08:08→20:43)
[2022-05-31] MEDS: Cyanocobalamin (Vitamin B-12) 100 MCG TABLET PO (08:08)
[2022-05-31 08:15] VITALS: BP 97/52; PULSE 81; TEMP 36.1; O2SAT 97
--- NOTE | 2022-05-31 16:15 | HO.PSYCHPN ---
Subjective Subjective Date of Service: 05/31/22 Reason For Visit: Depression Subjective Notes: Conditional Voluntary Healthcare Proxy: No Guardianship: No Medical Problems Affecting Mental Status: No Interim History: Discussed upcoming interview with Keily Smith with pt. They are looking for pt to continue to work with meds in hospital They will do telephone/zoom interview 06/02/22. Placement may be after holiday-currently no beds. Pt willing to discuss medication changes but feels current regime is offering stability. Discussed with pt's mother-discussed time line-currently no discharge options for pt except treatment facility-discussed possibility of needing to discharge pt to a detention-mother believes pt will be vulnerable and at significant risk (mom is a PhD psychologist) Medication Compliance: Yes Side effects from medications: No Attending Groups: No Review of Systems Acute medical concerns: No Medical Review of Systems: unchanged Mental Status Exam Mental Status Exam Patient Appearance: Appropriate Patient Orientation: Person, Place, Time and Situation Level of Consciousness: Alert Patient Behavior: Appropriate, Talkative, Cooperative and Good Eye Contact Mood Description: Flat Affect Description: Flat Patient Cognition Impaired: No Ability to Follow Directions: Good Speech Pattern: Spontaneous Speech Memory Description: Episodic Impaired Hallucinations: None Delusions: Paranoid Ideation, Grandiose and Present Perceptual Disturbances: Derealization Thought Process: Goal Oriented Thought Content: positive for Goal Oriented Depressive Symptoms: Thoughts of /Suicide (denies) Judgement: Good Diagnostics Vital Signs (24Hr): Vital Signs - 24 hr 05/30/22 18:00 05/31/22 08:15 Temperature 96.9 F 97 F Pulse Rate 71 81 Respiratory Rate 18 Blood Pressure 119/66 97/52 L Pulse Oximetry 97 97 Oxygen Delivery Method Room Air Room Air BMI result Body Mass Index 19.3 Labs Results: 05/12/22 12:47 05/14/22 07:53 Medications Medications Current Medications Acetaminophen (Acetaminophen 325 Mg Tablet) 650 mg PO Q6H PRN PRN Reason: Headache/Pain Mild Scale (1-3) Last Admin: 05/22/22 02:29 Dose: 650 mg Al Hydroxide/Mg Hydroxide (Magnesium Hydrox/Alum Hydrox 30 Ml Oral.Susp) 30 ml PO Q6H PRN PRN Reason: Heartburn/Nausea Clonidine HCl (Clonidine Hcl 0.1 Mg Tablet) 0.1 mg PO Q4H PRN; Protocol PRN Reason: anxiety Last Admin: 05/30/22 22:52 Dose: 0.1 mg Cyanocobalamin (Cyanocobalamin (Vitamin B-12) 100 Mcg Tablet) 100 mcg PO DAILY [facility] Last Admin: 05/31/22 08:08 Dose: 100 mcg Divalproex Sodium (Divalproex Sodium Er 500 Mg Tab.Er.24h) 500 mg PO BEDTIME [facility] Last Admin: 05/30/22 19:52 Dose: 500 mg Hydroxyzine HCl (Hydroxyzine Hcl 25 Mg Tablet) 25 mg PO BID [facility] Last Admin: 05/31/22 08:08 Dose: 25 mg Hydroxyzine HCl (Hydroxyzine Hcl 50 Mg Tablet) 50 mg PO Q6H PRN PRN Reason: Anxiety Last Admin: 05/24/22 02:24 Dose: 50 mg Ibuprofen (Ibuprofen 800 Mg Tablet) 800 mg PO Q8H PRN PRN Reason: Pain, Mild (Pain Scale 1-3) Last Admin: 05/22/22 14:11 Dose: 800 mg Magnesium Hydroxide (Milk Of Magnesia 30 Ml Oral.Susp) 30 ml PO DAILY PRN PRN Reason: Constipation Last Admin: 05/17/22 09:50 Dose: 30 ml Olanzapine (Olanzapine 10 Mg Tablet) 10 mg PO BEDTIME [facility] Last Admin: 05/30/22 19:52 Dose: 10 mg Olanzapine (Olanzapine 2.5 Mg Tablet) 2.5 mg PO BID PRN PRN Reason: psychosis, severe anxiety Prazosin HCl (Prazosin Hcl 1 Mg Capsule) 2 mg PO BEDTIME [facility]; Protocol Last Admin: 05/30/22 19:52 Dose: 2 mg Trazodone HCl (Trazodone Hcl 50 Mg Tablet) 50 mg PO BEDTIME PRN PRN Reason: Insomnia Last Admin: 05/18/22 20:47 Dose: 50 mg Allergies Allergies Allergy/AdvReac Type Severity Reaction Status Date / Time Penicillins AdvReac Unknown Verified 05/14/22 02:05 Assessment & Plan Assessment & Plan (1) Bipolar affective, manic, severe w/ psych: Status: Acute Code(s): F31.2 - Bipolar disorder, current episode manic severe with psychotic features Plan Admit to M5 15 minute checks [employer] Start Zyprexa 10 mg HS and 5 mg BID PRN. Group and milieu treatment Disposition planning 05/15/22- Increase Olanzapine to 15 mg HS Begin reality testing with pt regarding Mr. Way's relationship as outlined in his email response. Three day notice, possible section seven 05/16/22- Depakote ER 500 mg HS Decrease Olanzapine to 10 mg HS 05/17/22- Continue current plan 05/19/22- Education regarding illness. Pt will see parents over the weekend. Team is looking at rehab possibilities. 05/20 guarded and not much for engaging; Continue current treatment plan 05/21 says she has bad anxiety -add clonidine 0.1 mg Q 4 p.r.n.; if BP too low can try 0.05 mg 05/22/22 continue current regime Pt/Family request [facility]. 05/23/22 Continue current regime-pt will not trial any changes. Family requests application for [employer] which team is working on. 05/24/22 Continue current regime-referral to [employer]. 05/25/22 Pt has identified her goals for [employer] application. 05/26/22 Pt anxious for discharge. She may have the option to stay at her grandmother's home in [place] prior to residential admission. Will see if this will effect program admit requirements. 05/27: Continue current regimen and plans. Add prazosin 2 mg q.h.s. 05/28: Continue current regimen and plans. No changes were made today 05/29/22: Discharge planning 05/31/22: Discharge planning, Interview with Keily Smith 06/02. Pt considering medication adjustments while awaiting [email or web address]. Mother, a PhD psychologist, believes pt will be at significant risk if discharged to a detention prior to [employer] admission. I spent minutes with the patient and/or on the patient floor today, greater than?50% of which was spent counseling/coordinating care. Patient educated on: medication risk/benefits and therapeutic strategies Informed Consent: further education needed Reason for contiued inpatient stay Substantial Risk for: harm to self and rapid decompensation
[2022-05-31 18:18] VITALS: BP 116/62; PULSE 82; RESP 18; TEMP 36.3; O2SAT 97
[2022-05-31] MEDS: OLANZapine 10 MG TABLET PO (20:43)
[2022-05-31] MEDS: Prazosin HCL 1 MG CAPSULE 2 MG PO (20:43)
[2022-05-31] MEDS: Divalproex Sodium ER 500 MG TAB.ER.24H PO (20:43)
[2022-06-01 06:00] VITALS: BP 98/66; PULSE 85; RESP 18
[2022-06-01 07:00] VITALS: BMI 20.2
[2022-06-01] MEDS: Cyanocobalamin (Vitamin B-12) 100 MCG TABLET PO (07:57)
[2022-06-01] MEDS: hydrOXYzine HCL 25 MG TABLET PO ×2 (07:57→21:23)
--- NOTE | 2022-06-01 16:56 | P.PNPSI_ITS ---
Subjective Subjective Date of Service: 06/01/22 Reason For Visit: Depression Subjective Notes: Conditional Voluntary Healthcare Proxy: No Guardianship: No Medical Problems Affecting Mental Status: No Interim History: Pt working with team on added application paperwork given by Keily Smith today. Considering medication changes. We have introduced Vraylar as an option. Pt declined information stating I do my own research on medications . Available to pt as needed. Asks to discharge, to mother's care-not an option currently-no local family, friends. Parents are not wanting to take pt home. Pt states grandmother has a residence in [place] that is available. Mother reports this residence is under renovation and is not appropriate for pt to stay. Pt's level of illness has been persistent for a long period of time-family is very aware what helps and what does not. Mother reports pt is making progress in current hospital environment, albeit slow, as in other facilities she would have minimal interactions with team and resistance was more prominent. Also, mother describes pt not being at her baseline and believes if she will agree that more work with her medications is indicated. This is available for pt. Appt for Keily Smith interview 06/02. Medication Compliance: Yes Side effects from medications: No Attending Groups: No Review of Systems Acute medical concerns: No Medical Review of Systems: unchanged Mental Status Exam Mental Status Exam Patient Appearance: Appropriate Patient Orientation: Person, Place, Time and Situation Level of Consciousness: Alert Patient Behavior: Appropriate, Talkative, Cooperative and Good Eye Contact Mood Description: Flat Affect Description: Flat Patient Cognition Impaired: No Ability to Follow Directions: Good Speech Pattern: Spontaneous Speech Memory Description: Episodic Impaired Hallucinations: None Delusions: Paranoid Ideation, Grandiose and Present Perceptual Disturbances: Derealization Thought Process: Goal Oriented Thought Content: positive for Goal Oriented Depressive Symptoms: Thoughts of /Suicide (denies) Judgement: Good Diagnostics Vital Signs (24Hr): Vital Signs - 24 hr 05/31/22 18:18 06/01/22 06:00 Temperature 97.3 F Pulse Rate 82 85 Respiratory Rate 18 18 Blood Pressure 116/62 98/66 Pulse Oximetry 97 Oxygen Delivery Method Room Air Room Air BMI result Body Mass Index 20.2 Labs Results: 05/12/22 12:47 05/14/22 07:53 Medications Medications Current Medications Acetaminophen (Acetaminophen 325 Mg Tablet) 650 mg PO Q6H PRN PRN Reason: Headache/Pain Mild Scale (1-3) Last Admin: 05/22/22 02:29 Dose: 650 mg Al Hydroxide/Mg Hydroxide (Magnesium Hydrox/Alum Hydrox 30 Ml Oral.Susp) 30 ml PO Q6H PRN PRN Reason: Heartburn/Nausea Clonidine HCl (Clonidine Hcl 0.1 Mg Tablet) 0.1 mg PO Q4H PRN; Protocol PRN Reason: anxiety Last Admin: 05/30/22 22:52 Dose: 0.1 mg Cyanocobalamin (Cyanocobalamin (Vitamin B-12) 100 Mcg Tablet) 100 mcg PO DAILY [facility] Last Admin: 06/01/22 07:57 Dose: 100 mcg Divalproex Sodium (Divalproex Sodium Er 500 Mg Tab.Er.24h) 500 mg PO BEDTIME [facility] Last Admin: 05/31/22 20:43 Dose: 500 mg Hydroxyzine HCl (Hydroxyzine Hcl 25 Mg Tablet) 25 mg PO BID [facility] Last Admin: 06/01/22 07:57 Dose: 25 mg Hydroxyzine HCl (Hydroxyzine Hcl 50 Mg Tablet) 50 mg PO Q6H PRN PRN Reason: Anxiety Last Admin: 05/24/22 02:24 Dose: 50 mg Ibuprofen (Ibuprofen 800 Mg Tablet) 800 mg PO Q8H PRN PRN Reason: Pain, Mild (Pain Scale 1-3) Last Admin: 05/22/22 14:11 Dose: 800 mg Magnesium Hydroxide (Milk Of Magnesia 30 Ml Oral.Susp) 30 ml PO DAILY PRN PRN Reason: Constipation Last Admin: 05/17/22 09:50 Dose: 30 ml Olanzapine (Olanzapine 10 Mg Tablet) 10 mg PO BEDTIME [facility] Last Admin: 05/31/22 20:43 Dose: 10 mg Olanzapine (Olanzapine 2.5 Mg Tablet) 2.5 mg PO BID PRN PRN Reason: psychosis, severe anxiety Prazosin HCl (Prazosin Hcl 1 Mg Capsule) 2 mg PO BEDTIME [facility]; Protocol Last Admin: 05/31/22 20:43 Dose: 2 mg Trazodone HCl (Trazodone Hcl 50 Mg Tablet) 50 mg PO BEDTIME PRN PRN Reason: Insomnia Last Admin: 05/18/22 20:47 Dose: 50 mg Allergies Allergies Allergy/AdvReac Type Severity Reaction Status Date / Time Penicillins AdvReac Unknown Verified 05/14/22 02:05 Assessment & Plan Assessment & Plan (1) Bipolar affective, manic, severe w/ psych: Status: Acute Code(s): F31.2 - Bipolar disorder, current episode manic severe with psychotic features Plan Admit to M5 15 minute checks Collaterals Start Zyprexa 10 mg HS and 5 mg BID PRN. Group and milieu treatment Disposition planning 05/15/22- Increase Olanzapine to 15 mg HS Begin reality testing with pt regarding Mr. Way's relationship as outlined in his email response. Three day notice, possible section seven 05/16/22- Depakote ER 500 mg HS Decrease Olanzapine to 10 mg HS 05/17/22- Continue current plan 05/19/22- Education regarding illness. Pt will see parents over the weekend. Team is looking at rehab possibilities. 05/20 guarded and not much for engaging; Continue current treatment plan 05/21 says she has bad anxiety -add clonidine 0.1 mg Q 4 p.r.n.; if BP too low can try 0.05 mg 05/22/22 continue current regime Pt/Family request [facility]. 05/23/22 Continue current regime-pt will not trial any changes. Family requests application for [employer] which team is working on. 05/24/22 Continue current regime-referral to [employer]. 05/25/22 Pt has identified her goals for [employer] application. 05/26/22 Pt anxious for discharge. She may have the option to stay at her grandmother's home in [place] prior to residential admission. Will see if this will effect program admit requirements. 05/27: Continue current regimen and plans. Add prazosin 2 mg q.h.s. 05/28: Continue current regimen and plans. No changes were made today 05/29/22: Discharge planning 06/01/22: Discharge planning, medication intervention and adjustment family concurs with to help pt better manage sx-pt to decide. I spent minutes with the patient and/or on the patient floor today, greater than?50% of which was spent counseling/coordinating care. Patient educated on: therapeutic strategies Informed Consent: further education needed Reason for contiued inpatient stay Substantial Risk for: rapid decompensation
[2022-06-01 17:18] VITALS: BP 143/63; PULSE 92; RESP 16; TEMP 36.7; O2SAT 96
[2022-06-01] MEDS: Divalproex Sodium ER 500 MG TAB.ER.24H PO (21:23)
[2022-06-01] MEDS: OLANZapine 10 MG TABLET PO (21:24)
[2022-06-01] MEDS: Prazosin HCL 1 MG CAPSULE 2 MG PO (21:27)
[2022-06-01] MEDS: cloNIDine HCL 0.1 MG TABLET PO (22:50)
[2022-06-02 06:00] VITALS: BP 112/60; PULSE 77; RESP 14; TEMP 36.1; O2SAT 98
[2022-06-02] MEDS: Cyanocobalamin (Vitamin B-12) 100 MCG TABLET PO (08:39)
[2022-06-02] MEDS: hydrOXYzine HCL 25 MG TABLET PO ×2 (08:39→21:18)
--- NOTE | 2022-06-02 16:02 | HO.PSYCHPN ---
Subjective Subjective Date of Service: 06/02/22 Reason For Visit: Depression Subjective Notes: Conditional Voluntary Healthcare Proxy: No Guardianship: No Medical Problems Affecting Mental Status: No Interim History: Review of medication, addressed questions, completed her interview with Keily Anne Medication Compliance: Yes Side effects from medications: No Attending Groups: No Review of Systems Acute medical concerns: No Medical Review of Systems: unchanged Mental Status Exam Mental Status Exam Patient Appearance: Appropriate Patient Orientation: Person, Place, Time and Situation Level of Consciousness: Alert Patient Behavior: Appropriate, Talkative, Cooperative and Good Eye Contact Mood Description: Flat Affect Description: Flat Patient Cognition Impaired: No Ability to Follow Directions: Good Speech Pattern: Spontaneous Speech Memory Description: Episodic Impaired Hallucinations: None Delusions: Grandiose and Present Perceptual Disturbances: Derealization Thought Process: Goal Oriented Thought Content: positive for Goal Oriented Depressive Symptoms: Thoughts of /Suicide (denies) Judgement: Good Diagnostics Vital Signs (24Hr): Vital Signs - 24 hr 06/01/22 17:18 06/02/22 06:00 Temperature 98.1 F 97 F Pulse Rate 92 77 Respiratory Rate 16 14 Blood Pressure 143/63 H 112/60 Pulse Oximetry 96 98 Oxygen Delivery Method Room Air Room Air BMI result Body Mass Index 20.2 Labs Results: 05/12/22 12:47 05/14/22 07:53 Medications Medications Current Medications Acetaminophen (Acetaminophen 325 Mg Tablet) 650 mg PO Q6H PRN PRN Reason: Headache/Pain Mild Scale (1-3) Last Admin: 05/22/22 02:29 Dose: 650 mg Al Hydroxide/Mg Hydroxide (Magnesium Hydrox/Alum Hydrox 30 Ml Oral.Susp) 30 ml PO Q6H PRN PRN Reason: Heartburn/Nausea Clonidine HCl (Clonidine Hcl 0.1 Mg Tablet) 0.1 mg PO Q4H PRN; Protocol PRN Reason: anxiety Last Admin: 06/01/22 22:50 Dose: 0.1 mg Cyanocobalamin (Cyanocobalamin (Vitamin B-12) 100 Mcg Tablet) 100 mcg PO DAILY [facility] Last Admin: 06/02/22 08:39 Dose: 100 mcg Divalproex Sodium (Divalproex Sodium Er 500 Mg Tab.Er.24h) 500 mg PO BEDTIME [facility] Last Admin: 06/01/22 21:23 Dose: 500 mg Hydroxyzine HCl (Hydroxyzine Hcl 25 Mg Tablet) 25 mg PO BID [facility] Last Admin: 06/02/22 08:39 Dose: 25 mg Hydroxyzine HCl (Hydroxyzine Hcl 50 Mg Tablet) 50 mg PO Q6H PRN PRN Reason: Anxiety Last Admin: 05/24/22 02:24 Dose: 50 mg Ibuprofen (Ibuprofen 800 Mg Tablet) 800 mg PO Q8H PRN PRN Reason: Pain, Mild (Pain Scale 1-3) Last Admin: 05/22/22 14:11 Dose: 800 mg Magnesium Hydroxide (Milk Of Magnesia 30 Ml Oral.Susp) 30 ml PO DAILY PRN PRN Reason: Constipation Last Admin: 05/17/22 09:50 Dose: 30 ml Olanzapine (Olanzapine 10 Mg Tablet) 10 mg PO BEDTIME [facility] Last Admin: 06/01/22 21:24 Dose: 10 mg Olanzapine (Olanzapine 2.5 Mg Tablet) 2.5 mg PO BID PRN PRN Reason: psychosis, severe anxiety Prazosin HCl (Prazosin Hcl 1 Mg Capsule) 2 mg PO BEDTIME [facility]; Protocol Last Admin: 06/01/22 21:27 Dose: 2 mg Trazodone HCl (Trazodone Hcl 50 Mg Tablet) 50 mg PO BEDTIME PRN PRN Reason: Insomnia Last Admin: 05/18/22 20:47 Dose: 50 mg Allergies Allergies Allergy/AdvReac Type Severity Reaction Status Date / Time Penicillins AdvReac Unknown Verified 05/14/22 02:05 Assessment & Plan Assessment & Plan (1) Bipolar affective, manic, severe w/ psych: Status: Acute Code(s): F31.2 - Bipolar disorder, current episode manic severe with psychotic features Plan Admit to M5 15 minute checks Collaterals Start Zyprexa 10 mg HS and 5 mg BID PRN. Group and milieu treatment Disposition planning 05/15/22- Increase Olanzapine to 15 mg HS Begin reality testing with pt regarding Mr. Way's relationship as outlined in his email response. Three day notice, possible section seven 05/16/22- Depakote ER 500 mg HS Decrease Olanzapine to 10 mg HS 05/17/22- Continue current plan 05/19/22- Education regarding illness. Pt will see parents over the weekend. Team is looking at rehab possibilities. 05/20 guarded and not much for engaging; Continue current treatment plan 05/21 says she has bad anxiety -add clonidine 0.1 mg Q 4 p.r.n.; if BP too low can try 0.05 mg 05/22/22 continue current regime Pt/Family request [facility]. 05/23/22 Continue current regime-pt will not trial any changes. Family requests application for [employer] which team is working on. 05/24/22 Continue current regime-referral to [employer]. 05/25/22 Pt has identified her goals for [employer] application. 05/26/22 Pt anxious for discharge. She may have the option to stay at her grandmother's home in [place] prior to residential admission. Will see if this will effect program admit requirements. 05/27: Continue current regimen and plans. Add prazosin 2 mg q.h.s. 05/28: Continue current regimen and plans. No changes were made today 05/29/22: Discharge planning 06/01/22: Discharge planning, medication intervention and adjustment family concurs with to help pt better manage sx-pt to decide. 06/02/22: Vraylar 1.5 mg daily I spent minutes with the patient and/or on the patient floor today, greater than?50% of which was spent counseling/coordinating care. Patient educated on: medication risk/benefits Informed Consent: understands and further education needed Reason for contiued inpatient stay Substantial Risk for: rapid decompensation
[2022-06-02] MEDS: cloNIDine HCL 0.1 MG TABLET PO (21:18)
[2022-06-02] MEDS: Divalproex Sodium ER 500 MG TAB.ER.24H PO (21:19)
[2022-06-02] MEDS: OLANZapine 10 MG TABLET PO (21:19)
[2022-06-02] MEDS: Prazosin HCL 1 MG CAPSULE 2 MG PO (21:19)
[2022-06-03 06:00] VITALS: BP 107/58; PULSE 83; TEMP 37.3; O2SAT 96
[2022-06-03] MEDS: hydrOXYzine HCL 25 MG TABLET PO ×2 (09:01→20:19)
[2022-06-03] MEDS: Cyanocobalamin (Vitamin B-12) 100 MCG TABLET PO (09:01)
[2022-06-03] MEDS: Cariprazine HCl 1.5 MG CAPSULE PO (09:02)
[2022-06-03] MEDS: cloNIDine HCL 0.1 MG TABLET PO (12:47)
--- NOTE | 2022-06-03 14:44 | P.PNPSI_ITS ---
Subjective Subjective Date of Service: 06/03/22 Reason For Visit: Depression Interim History: Chart reviewed. Discussed with Nursing. Overall has been isolative at times and slightly guarded. Sleep has been poor. Today patient reports feeling that Vraylar has been helpful and feeling less depressed. No SI. Feels that she is getting good care on the unit and being heard. Slightly apprehensive regarding [employer] interview and not having heard back from same. Did report feeling slightly more restless today. We discussed lowering olanzapine in the context of having just started Vraylar and continuing to review this daily. Medication Compliance: Yes Side effects from medications: No Attending Groups: Intermittent Review of Systems Acute medical concerns: No Review of Systems Review of Systems Some restlessness Mental Status Exam Mental Status Exam Narrative: Pleasant. Engaged. Good self-care. Organized. Reports feeling less depressed. No SI or HI. No overt psychosis noted. Insight and judgment fair Diagnostics Vital Signs (24Hr): Vital Signs - 24 hr 06/03/22 06:00 Temperature 99.1 F Pulse Rate 83 Blood Pressure 107/58 L Pulse Oximetry 96 Oxygen Delivery Method Room Air BMI result Body Mass Index 20.2 Labs Results: 05/12/22 12:47 05/14/22 07:53 Medications Medications Current Medications Acetaminophen (Acetaminophen 325 Mg Tablet) 650 mg PO Q6H PRN PRN Reason: Headache/Pain Mild Scale (1-3) Last Admin: 05/22/22 02:29 Dose: 650 mg Al Hydroxide/Mg Hydroxide (Magnesium Hydrox/Alum Hydrox 30 Ml Oral.Susp) 30 ml PO Q6H PRN PRN Reason: Heartburn/Nausea Cariprazine (Cariprazine Hcl 1.5 Mg Capsule) 1.5 mg PO DAILY [facility] Last Admin: 06/03/22 09:02 Dose: 1.5 mg Clonidine HCl (Clonidine Hcl 0.1 Mg Tablet) 0.1 mg PO Q4H PRN; Protocol PRN Reason: anxiety Last Admin: 06/03/22 12:47 Dose: 0.1 mg Cyanocobalamin (Cyanocobalamin (Vitamin B-12) 100 Mcg Tablet) 100 mcg PO DAILY [facility] Last Admin: 06/03/22 09:01 Dose: 100 mcg Divalproex Sodium (Divalproex Sodium Er 500 Mg Tab.Er.24h) 500 mg PO BEDTIME [facility] Last Admin: 06/02/22 21:19 Dose: 500 mg Hydroxyzine HCl (Hydroxyzine Hcl 25 Mg Tablet) 25 mg PO BID [facility] Last Admin: 06/03/22 09:01 Dose: 25 mg Hydroxyzine HCl (Hydroxyzine Hcl 50 Mg Tablet) 50 mg PO Q6H PRN PRN Reason: Anxiety Last Admin: 05/24/22 02:24 Dose: 50 mg Ibuprofen (Ibuprofen 800 Mg Tablet) 800 mg PO Q8H PRN PRN Reason: Pain, Mild (Pain Scale 1-3) Last Admin: 05/22/22 14:11 Dose: 800 mg Magnesium Hydroxide (Milk Of Magnesia 30 Ml Oral.Susp) 30 ml PO DAILY PRN PRN Reason: Constipation Last Admin: 05/17/22 09:50 Dose: 30 ml Olanzapine (Olanzapine 10 Mg Tablet) 10 mg PO BEDTIME [facility] Last Admin: 06/02/22 21:19 Dose: 10 mg Olanzapine (Olanzapine 2.5 Mg Tablet) 2.5 mg PO BID PRN PRN Reason: psychosis, severe anxiety Prazosin HCl (Prazosin Hcl 1 Mg Capsule) 2 mg PO BEDTIME [facility]; Protocol Last Admin: 06/02/22 21:19 Dose: 2 mg Trazodone HCl (Trazodone Hcl 50 Mg Tablet) 50 mg PO BEDTIME PRN PRN Reason: Insomnia Last Admin: 05/18/22 20:47 Dose: 50 mg Allergies Allergies Allergy/AdvReac Type Severity Reaction Status Date / Time Penicillins AdvReac Unknown Verified 05/14/22 02:05 Assessment & Plan Assessment & Plan (1) Bipolar affective, manic, severe w/ psych: Status: Acute Code(s): F31.2 - Bipolar disorder, current episode manic severe with psychotic features Plan Admit to M5 15 minute checks Collaterals Start Zyprexa 10 mg HS and 5 mg BID PRN. Group and milieu treatment Disposition planning 05/15/22- Increase Olanzapine to 15 mg HS Begin reality testing with pt regarding Mr. Way's relationship as outlined in his email response. Three day notice, possible section seven 05/16/22- Depakote ER 500 mg HS Decrease Olanzapine to 10 mg HS 05/17/22- Continue current plan 05/19/22- Education regarding illness. Pt will see parents over the weekend. Team is looking at rehab possibilities. 05/20 guarded and not much for engaging; Continue current treatment plan 05/21 says she has bad anxiety -add clonidine 0.1 mg Q 4 p.r.n.; if BP too low can try 0.05 mg 05/22/22 continue current regime Pt/Family request [facility]. 05/23/22 Continue current regime-pt will not trial any changes. Family requests application for [employer] which team is working on. 05/24/22 Continue current regime-referral to [employer]. 05/25/22 Pt has identified her goals for [employer] application. 05/26/22 Pt anxious for discharge. She may have the option to stay at her grandmother's home in [place] prior to residential admission. Will see if this will effect program admit requirements. 05/27: Continue current regimen and plans. Add prazosin 2 mg q.h.s. 05/28: Continue current regimen and plans. No changes were made today 05/29/22: Discharge planning 06/01/22: Discharge planning, medication intervention and adjustment family concurs with to help pt better manage sx-pt to decide. 06/02/22: Vraylar 1.5 mg daily 06/03/22: lower olanzapine to 5mg (some restlessness having started vraylar) I spent minutes with the patient and/or on the patient floor today, greater than?50% of which was spent counseling/coordinating care. Reason for contiued inpatient stay Substantial Risk for: harm to self
[2022-06-03 18:00] VITALS: BP 94/57; PULSE 93; TEMP 36.9; O2SAT 97
[2022-06-03] MEDS: Divalproex Sodium ER 500 MG TAB.ER.24H PO (20:19)
[2022-06-03] MEDS: OLANZapine 10 MG TABLET PO (20:19)
[2022-06-03] MEDS: Prazosin HCL 1 MG CAPSULE 2 MG PO (20:19)
[2022-06-04 07:30] VITALS: BP 105/60; PULSE 89; RESP 16; TEMP 36.6; O2SAT 96
[2022-06-04] MEDS: Cyanocobalamin (Vitamin B-12) 100 MCG TABLET PO (08:54)
[2022-06-04] MEDS: hydrOXYzine HCL 25 MG TABLET PO ×2 (08:54→19:47)
[2022-06-04] MEDS: Cariprazine HCl 1.5 MG CAPSULE PO (08:54)
--- NOTE | 2022-06-04 12:23 | HO.PSYCHPN ---
Subjective Subjective Date of Service: 06/04/22 Reason For Visit: Depression Interim History: Today patient reports feeling that Vraylar has been helpful and feeling less depressed and the restlessness resolved. Sleep continues to be broken. No SI. Feels that she is getting good care on the unit. Remains apprehensive regarding [employer] interview and not having heard back from same. Medication Compliance: Yes Side effects from medications: No Attending Groups: Intermittent Review of Systems Acute medical concerns: No Review of Systems Review of Systems Restlessness resolved Mental Status Exam Mental Status Exam Narrative: Pleasant. Engaged. Good self-care. Organized. Reports feeling less depressed. No SI or HI. No overt psychosis noted. Insight and judgment fair Diagnostics Vital Signs (24Hr): Vital Signs - 24 hr 06/03/22 18:00 06/04/22 07:30 Temperature 98.5 F 97.9 F Pulse Rate 93 89 Respiratory Rate 16 Blood Pressure 94/57 L 105/60 Pulse Oximetry 97 96 Oxygen Delivery Method Room Air Room Air BMI result Body Mass Index 20.2 Labs Results: 05/12/22 12:47 05/14/22 07:53 Medications Medications Current Medications Acetaminophen (Acetaminophen 325 Mg Tablet) 650 mg PO Q6H PRN PRN Reason: Headache/Pain Mild Scale (1-3) Last Admin: 05/22/22 02:29 Dose: 650 mg Al Hydroxide/Mg Hydroxide (Magnesium Hydrox/Alum Hydrox 30 Ml Oral.Susp) 30 ml PO Q6H PRN PRN Reason: Heartburn/Nausea Cariprazine (Cariprazine Hcl 1.5 Mg Capsule) 1.5 mg PO DAILY [facility] B[facility]S [facility] Last Admin: 06/04/22 08:54 Dose: 1.5 mg Clonidine HCl (Clonidine Hcl 0.1 Mg Tablet) 0.1 mg PO Q4H PRN; Protocol PRN Reason: anxiety Last Admin: 06/03/22 12:47 Dose: 0.1 mg Cyanocobalamin (Cyanocobalamin (Vitamin B-12) 100 Mcg Tablet) 100 mcg PO DAILY [facility] 234 BEDS AT [facility] Last Admin: 06/04/22 08:54 Dose: 100 mcg Divalproex Sodium (Divalproex Sodium Er 500 Mg Tab.Er.24h) 500 mg PO BEDTIME [facility]CLUDE 234 BEDS AT [facility] Last Admin: 06/03/22 20:19 Dose: 500 mg Hydroxyzine HCl (Hydroxyzine Hcl 25 Mg Tablet) 25 mg PO BID [facility]S [facility]CLUDE 234 BEDS AT [facility] Last Admin: 06/04/22 08:54 Dose: 25 mg Hydroxyzine HCl (Hydroxyzine Hcl 50 Mg Tablet) 50 mg PO Q6H PRN PRN Reason: Anxiety Last Admin: 05/24/22 02:24 Dose: 50 mg Ibuprofen (Ibuprofen 800 Mg Tablet) 800 mg PO Q8H PRN PRN Reason: Pain, Mild (Pain Scale 1-3) Last Admin: 05/22/22 14:11 Dose: 800 mg Magnesium Hydroxide (Milk Of Magnesia 30 Ml Oral.Susp) 30 ml PO DAILY PRN PRN Reason: Constipation Last Admin: 05/17/22 09:50 Dose: 30 ml Olanzapine (Olanzapine 10 Mg Tablet) 10 mg PO BEDTIME [facility] Last Admin: 06/03/22 20:19 Dose: 10 mg Olanzapine (Olanzapine 2.5 Mg Tablet) 2.5 mg PO BID PRN PRN Reason: psychosis, severe anxiety Prazosin HCl (Prazosin Hcl 1 Mg Capsule) 2 mg PO BEDTIME [facility]; Protocol Last Admin: 06/03/22 20:19 Dose: 2 mg Trazodone HCl (Trazodone Hcl 50 Mg Tablet) 50 mg PO BEDTIME PRN PRN Reason: Insomnia Last Admin: 05/18/22 20:47 Dose: 50 mg Allergies Allergies Allergy/AdvReac Type Severity Reaction Status Date / Time Penicillins AdvReac Unknown Verified 05/14/22 02:05 Assessment & Plan Assessment & Plan (1) Bipolar affective, manic, severe w/ psych: Status: Acute Code(s): F31.2 - Bipolar disorder, current episode manic severe with psychotic features Plan Admit to M5 15 minute checks [employer]aterals Start Zyprexa 10 mg HS and 5 mg BID PRN. Group and milieu treatment Disposition planning 05/15/22- Increase Olanzapine to 15 mg HS Begin reality testing with pt regarding Mr. Way's relationship as outlined in his email response. Three day notice, possible section seven 05/16/22- Depakote ER 500 mg HS Decrease Olanzapine to 10 mg HS 05/17/22- Continue current plan 05/19/22- Education regarding illness. Pt will see parents over the weekend. Team is looking at rehab possibilities. 05/20 guarded and not much for engaging; Continue current treatment plan 05/21 says she has bad anxiety -add clonidine 0.1 mg Q 4 p.r.n.; if BP too low can try 0.05 mg 05/22/22 continue current regime Pt/Family request [facility]. 05/23/22 Continue current regime-pt will not trial any changes. Family requests application for [employer] which team is working on. 05/24/22 Continue current regime-referral to [employer]. 05/25/22 Pt has identified her goals for [employer] application. 05/26/22 Pt anxious for discharge. She may have the option to stay at her grandmother's home in [place] prior to residential admission. Will see if this will effect program admit requirements. 05/27: Continue current regimen and plans. Add prazosin 2 mg q.h.s. 05/28: Continue current regimen and plans. No changes were made today 05/29/22: Discharge planning 06/01/22: Discharge planning, medication intervention and adjustment family concurs with to help pt better manage sx-pt to decide. 06/02/22: Vraylar 1.5 mg daily 06/03/22: lower olanzapine to 5mg (some restlessness having started vraylar) 06/04/2022: No changes to current plan I spent minutes with the patient and/or on the patient floor today, greater than?50% of which was spent counseling/coordinating care. Reason for contiued inpatient stay Substantial Risk for: inability to function
[2022-06-04 17:17] VITALS: BP 110/55; PULSE 102; TEMP 36.6; O2SAT 96
[2022-06-04] MEDS: Divalproex Sodium ER 500 MG TAB.ER.24H PO (19:46)
[2022-06-04] MEDS: OLANZapine 5 MG TABLET PO (19:47)
[2022-06-04] MEDS: Prazosin HCL 1 MG CAPSULE 2 MG PO (19:47)
[2022-06-04] MEDS: cloNIDine HCL 0.1 MG TABLET PO (21:16)
[2022-06-05 08:14] VITALS: BP 96/50; PULSE 85; RESP 16; TEMP 37.3; O2SAT 96
[2022-06-05] MEDS: hydrOXYzine HCL 25 MG TABLET PO ×2 (09:01→21:02)
[2022-06-05] MEDS: Cariprazine HCl 1.5 MG CAPSULE PO (09:01)
[2022-06-05] MEDS: Cyanocobalamin (Vitamin B-12) 100 MCG TABLET PO (09:01)
--- NOTE | 2022-06-05 16:48 | HO.PSYCHPN ---
Subjective Subjective Date of Service: 06/05/22 Reason For Visit: Depression Subjective Notes: Conditional Voluntary Healthcare Proxy: No Guardianship: No Medical Problems Affecting Mental Status: No Interim History: Participating in process of application to longer term programs. Describes boredom. Attending some groups today. Tolerating Vraylar-reported some SE over the weekend, Olanzapine decreased Medication Compliance: Yes Side effects from medications: Yes (at times, tremor reported) Attending Groups: Intermittent Review of Systems Acute medical concerns: No Medical Review of Systems: unchanged Mental Status Exam Mental Status Exam Patient Appearance: Appropriate Patient Orientation: Person, Place, Time and Situation Level of Consciousness: Alert Patient Behavior: Talkative and Good Eye Contact Mood Description: Withdrawn Affect Description: Flat Patient Cognition Impaired: No Ability to Follow Directions: Good Speech Pattern: Spontaneous Speech Memory Description: Episodic Impaired Hallucinations: None Delusions: Present Thought Process: Goal Oriented Thought Content: positive for Goal Oriented, positive for Suicidal Ideation (denies) and positive for Homicidal Ideation (denies) Depressive Symptoms: Increased Irritability Abnormal Motor Activity Signs and Symptoms: Restlessness Judgement: Fair Diagnostics Vital Signs (24Hr): Vital Signs - 24 hr 06/04/22 17:17 06/05/22 08:14 Temperature 97.8 F 99.1 F Pulse Rate 102 H 85 Respiratory Rate 16 Blood Pressure 110/55 L 96/50 L Pulse Oximetry 96 96 Oxygen Delivery Method Room Air Room Air BMI result Body Mass Index 20.2 Labs Results: 05/12/22 12:47 05/14/22 07:53 Medications Medications Current Medications Acetaminophen (Acetaminophen 325 Mg Tablet) 650 mg PO Q6H PRN PRN Reason: Headache/Pain Mild Scale (1-3) Last Admin: 05/22/22 02:29 Dose: 650 mg Al Hydroxide/Mg Hydroxide (Magnesium Hydrox/Alum Hydrox 30 Ml Oral.Susp) 30 ml PO Q6H PRN PRN Reason: Heartburn/Nausea Cariprazine (Cariprazine Hcl 1.5 Mg Capsule) 1.5 mg PO DAILY ADORE Last Admin: 06/05/22 09:01 Dose: 1.5 mg Clonidine HCl (Clonidine Hcl 0.1 Mg Tablet) 0.1 mg PO Q4H PRN; Protocol PRN Reason: anxiety Last Admin: 06/04/22 21:16 Dose: 0.1 mg Cyanocobalamin (Cyanocobalamin (Vitamin B-12) 100 Mcg Tablet) 100 mcg PO DAILY ADORE Last Admin: 06/05/22 09:01 Dose: 100 mcg Divalproex Sodium (Divalproex Sodium Er 500 Mg Tab.Er.24h) 500 mg PO BEDTIME ADORE Last Admin: 06/04/22 19:46 Dose: 500 mg Hydroxyzine HCl (Hydroxyzine Hcl 25 Mg Tablet) 25 mg PO BID ADORE Last Admin: 06/05/22 09:01 Dose: 25 mg Hydroxyzine HCl (Hydroxyzine Hcl 50 Mg Tablet) 50 mg PO Q6H PRN PRN Reason: Anxiety Last Admin: 05/24/22 02:24 Dose: 50 mg Ibuprofen (Ibuprofen 800 Mg Tablet) 800 mg PO Q8H PRN PRN Reason: Pain, Mild (Pain Scale 1-3) Last Admin: 05/22/22 14:11 Dose: 800 mg Magnesium Hydroxide (Milk Of Magnesia 30 Ml Oral.Susp) 30 ml PO DAILY PRN PRN Reason: Constipation Last Admin: 05/17/22 09:50 Dose: 30 ml Olanzapine (Olanzapine 2.5 Mg Tablet) 2.5 mg PO BID PRN PRN Reason: psychosis, severe anxiety Olanzapine (Olanzapine 5 Mg Tablet) 5 mg PO BEDTIME ADORE Last Admin: 06/04/22 19:47 Dose: 5 mg Prazosin HCl (Prazosin Hcl 1 Mg Capsule) 2 mg PO BEDTIME ADORE; Protocol Last Admin: 06/04/22 19:47 Dose: 2 mg Trazodone HCl (Trazodone Hcl 50 Mg Tablet) 50 mg PO BEDTIME PRN PRN Reason: Insomnia Last Admin: 05/18/22 20:47 Dose: 50 mg Allergies Allergies Allergy/AdvReac Type Severity Reaction Status Date / Time Penicillins AdvReac Unknown Verified 05/14/22 02:05 Assessment & Plan Assessment & Plan (1) Bipolar affective, manic, severe w/ psych: Status: Acute Code(s): F31.2 - Bipolar disorder, current episode manic severe with psychotic features Plan Admit to M5 15 minute checks Collaterals Start Zyprexa 10 mg HS and 5 mg BID PRN. Group and milieu treatment Disposition planning 05/15/22- Increase Olanzapine to 15 mg HS Begin reality testing with pt regarding Mr. Way's relationship as outlined in his email response. Three day notice, possible section seven 05/16/22- Depakote ER 500 mg HS Decrease Olanzapine to 10 mg HS 05/17/22- Continue current plan 05/19/22- Education regarding illness. Pt will see parents over the weekend. Team is looking at rehab possibilities. 05/20 guarded and not much for engaging; Continue current treatment plan 05/21 says she has bad anxiety -add clonidine 0.1 mg Q 4 p.r.n.; if BP too low can try 0.05 mg 05/22/22 continue current regime Pt/Family request [facility]. 05/23/22 Continue current regime-pt will not trial any changes. Family requests application for [employer] which team is working on. 05/24/22 Continue current regime-referral to [facility]. 05/25/22 Pt has identified her goals for [employer] application. 05/26/22 Pt anxious for discharge. She may have the option to stay at her grandmother's home in [place] prior to residential admission. Will see if this will effect program admit requirements. 05/27: Continue current regimen and plans. Add prazosin 2 mg q.h.s. 05/28: Continue current regimen and plans. No changes were made today 05/29/22: Discharge planning 06/01/22: Discharge planning, medication intervention and adjustment family concurs with to help pt better manage sx-pt to decide. 06/02/22: Vraylar 1.5 mg daily 06/03/22: lower olanzapine to 5mg (some restlessness having started vraylar) 06/04/2022: No changes to current plan 06/05/22: Continue current regime I spent minutes with the patient and/or on the patient floor today, greater than?50% of which was spent counseling/coordinating care. Patient educated on: medication risk/benefits and therapeutic strategies Informed Consent: understands Reason for contiued inpatient stay Substantial Risk for: rapid decompensation
[2022-06-05] MEDS: OLANZapine 5 MG TABLET PO (21:01)
[2022-06-05] MEDS: cloNIDine HCL 0.1 MG TABLET PO (21:01)
[2022-06-05] MEDS: Prazosin HCL 1 MG CAPSULE 2 MG PO (21:02)
[2022-06-05] MEDS: Divalproex Sodium ER 500 MG TAB.ER.24H PO (21:02)
[2022-06-05 21:07] VITALS: BP 118/74; PULSE 92; RESP 16; TEMP 36.8
[2022-06-06 08:17] VITALS: BP 99/52; PULSE 96; RESP 18; TEMP 36.6; O2SAT 96
[2022-06-06] MEDS: Cariprazine HCl 1.5 MG CAPSULE PO (08:33)
[2022-06-06] MEDS: hydrOXYzine HCL 25 MG TABLET PO ×2 (08:33→20:29)
[2022-06-06] MEDS: Cyanocobalamin (Vitamin B-12) 100 MCG TABLET PO (08:33)
--- NOTE | 2022-06-06 12:37 | P.PNPSI_ITS ---
Subjective Subjective Date of Service: 06/06/22 Reason For Visit: Depression Subjective Notes: Conditional Voluntary Healthcare Proxy: No Guardianship: No Medical Problems Affecting Mental Status: No Interim History: Reports med SE from Vraylar-feeling different. Asks to stop Olanzapine. Asked pt to consider if she wanted to continue Vraylar or Olanzapine. Resistant today to medication intervention. Expressed frustration with process of transfer to rehab. [facility] as of this time, has denied her application. Team is working on [facility] program. Medication Compliance: Yes Side effects from medications: Yes Attending Groups: Intermittent Review of Systems Acute medical concerns: No Medical Review of Systems: unchanged Mental Status Exam Mental Status Exam Patient Appearance: Appropriate Patient Orientation: Person, Place, Time and Situation Level of Consciousness: Alert Patient Behavior: Talkative and Good Eye Contact Mood Description: Withdrawn Affect Description: Flat Patient Cognition Impaired: No Ability to Follow Directions: Good Speech Pattern: Spontaneous Speech Memory Description: Episodic Impaired Hallucinations: None Delusions: Present Thought Process: Goal Oriented Thought Content: positive for Goal Oriented, positive for Suicidal Ideation (denies) and positive for Homicidal Ideation (denies) Depressive Symptoms: Increased Irritability Abnormal Motor Activity Signs and Symptoms: Restlessness Judgement: Fair Diagnostics Vital Signs (24Hr): Vital Signs - 24 hr 06/05/22 21:07 06/06/22 08:17 Temperature 98.3 F 97.9 F Pulse Rate 92 96 Respiratory Rate 16 18 Blood Pressure 118/74 99/52 L Pulse Oximetry 96 Oxygen Delivery Method Room Air BMI result Body Mass Index 20.2 Labs Results: 05/12/22 12:47 05/14/22 07:53 Medications Medications Current Medications Acetaminophen (Acetaminophen 325 Mg Tablet) 650 mg PO Q6H PRN PRN Reason: Headache/Pain Mild Scale (1-3) Last Admin: 05/22/22 02:29 Dose: 650 mg Al Hydroxide/Mg Hydroxide (Magnesium Hydrox/Alum Hydrox 30 Ml Oral.Susp) 30 ml PO Q6H PRN PRN Reason: Heartburn/Nausea Cariprazine (Cariprazine Hcl 1.5 Mg Capsule) 1.5 mg PO DAILY ADORE Last Admin: 06/06/22 08:33 Dose: 1.5 mg Clonidine HCl (Clonidine Hcl 0.1 Mg Tablet) 0.1 mg PO Q4H PRN; Protocol PRN Reason: anxiety Last Admin: 06/05/22 21:01 Dose: 0.1 mg Cyanocobalamin (Cyanocobalamin (Vitamin B-12) 100 Mcg Tablet) 100 mcg PO DAILY ADORE Last Admin: 06/06/22 08:33 Dose: 100 mcg Divalproex Sodium (Divalproex Sodium Er 500 Mg Tab.Er.24h) 500 mg PO BEDTIME ADORE Last Admin: 06/05/22 21:02 Dose: 500 mg Hydroxyzine HCl (Hydroxyzine Hcl 25 Mg Tablet) 25 mg PO BID ADORE Last Admin: 06/06/22 08:33 Dose: 25 mg Hydroxyzine HCl (Hydroxyzine Hcl 50 Mg Tablet) 50 mg PO Q6H PRN PRN Reason: Anxiety Last Admin: 05/24/22 02:24 Dose: 50 mg Ibuprofen (Ibuprofen 800 Mg Tablet) 800 mg PO Q8H PRN PRN Reason: Pain, Mild (Pain Scale 1-3) Last Admin: 05/22/22 14:11 Dose: 800 mg Magnesium Hydroxide (Milk Of Magnesia 30 Ml Oral.Susp) 30 ml PO DAILY PRN PRN Reason: Constipation Last Admin: 05/17/22 09:50 Dose: 30 ml Olanzapine (Olanzapine 2.5 Mg Tablet) 2.5 mg PO BID PRN PRN Reason: psychosis, severe anxiety Olanzapine (Olanzapine 5 Mg Tablet) 5 mg PO BEDTIME ADORE Last Admin: 06/05/22 21:01 Dose: 5 mg Prazosin HCl (Prazosin Hcl 1 Mg Capsule) 2 mg PO BEDTIME ADORE; Protocol Last Admin: 06/05/22 21:02 Dose: 2 mg Trazodone HCl (Trazodone Hcl 50 Mg Tablet) 50 mg PO BEDTIME PRN PRN Reason: Insomnia Last Admin: 05/18/22 20:47 Dose: 50 mg Allergies Allergies Allergy/AdvReac Type Severity Reaction Status Date / Time Penicillins AdvReac Unknown Verified 05/14/22 02:05 Assessment & Plan Assessment & Plan (1) Bipolar affective, manic, severe w/ psych: Status: Acute Code(s): F31.2 - Bipolar disorder, current episode manic severe with psychotic features Plan Admit to M5 15 minute checks Collaterals Start Zyprexa 10 mg HS and 5 mg BID PRN. Group and milieu treatment Disposition planning 05/15/22- Increase Olanzapine to 15 mg HS Begin reality testing with pt regarding Mr. Grobe's relationship as outlined in his email response. Three day notice, possible section seven 05/16/22- Depakote ER 500 mg HS Decrease Olanzapine to 10 mg HS 05/17/22- Continue current plan 05/19/22- Education regarding illness. Pt will see parents over the weekend. Team is looking at rehab possibilities. 05/20 guarded and not much for engaging; Continue current treatment plan 05/21 says she has bad anxiety -add clonidine 0.1 mg Q 4 p.r.n.; if BP too low can try 0.05 mg 05/22/22 continue current regime Pt/Family request [facility]. 05/23/22 Continue current regime-pt will not trial any changes. Family requests application for [email or web address] which team is working on. 05/24/22 Continue current regime-referral to [email or web address]. 05/25/22 Pt has identified her goals for [email or web address] application. 05/26/22 Pt anxious for discharge. She may have the option to stay at her grandmother's home in [place] prior to residential admission. Will see if this will effect program admit requirements. 05/27: Continue current regimen and plans. Add prazosin 2 mg q.h.s. 05/28: Continue current regimen and plans. No changes were made today 05/29/22: Discharge planning 06/01/22: Discharge planning, medication intervention and adjustment family concurs with to help pt better manage sx-pt to decide. 06/02/22: Vraylar 1.5 mg daily 06/03/22: lower olanzapine to 5mg (some restlessness having started vraylar) 06/04/2022: No changes to current plan 06/05/22: Continue current regime 06/06/22: Continue medication education, support, encourage treatment compliance. I spent minutes with the patient and/or on the patient floor today, greater than?50% of which was spent counseling/coordinating care. Patient educated on: medication risk/benefits and therapeutic strategies Informed Consent: further education needed Reason for contiued inpatient stay Substantial Risk for: rapid decompensation
[2022-06-06 20:25] VITALS: BP 117/69; PULSE 89; TEMP 36.2
[2022-06-06] MEDS: Prazosin HCL 1 MG CAPSULE 2 MG PO (20:28)
[2022-06-06] MEDS: Divalproex Sodium ER 500 MG TAB.ER.24H PO (20:29)
[2022-06-06] MEDS: OLANZapine 5 MG TABLET PO (20:29)
[2022-06-06] MEDS: cloNIDine HCL 0.1 MG TABLET PO (20:30)
[2022-06-07] MEDS: Cariprazine HCl 1.5 MG CAPSULE PO (08:27)
[2022-06-07] MEDS: Cyanocobalamin (Vitamin B-12) 100 MCG TABLET PO (08:27)
[2022-06-07] MEDS: hydrOXYzine HCL 25 MG TABLET PO ×2 (08:27→19:15)
[2022-06-07 08:30] VITALS: BP 117/65; PULSE 77; TEMP 36.1; O2SAT 96
--- NOTE | 2022-06-07 08:49 | P.PNPSI_ITS ---
Subjective Subjective Date of Service: 06/07/22 Reason For Visit: Depression Interim History: Patient says that she has doing okay. Nightmares are not as bad and though she still wakes up at night, her heart is not racing; she is not sure if improvement in nightmares is due to prazosin or just because she has gotten for milieu with being on the unit, however she agrees to continue with prazosin. She said she was talking with primary provider about going up on Vraylar. She says she is ready to do so if he can start tomorrow. Visual Journalist agrees. She said in the past, she usually ends up discontinuing Zyprexa because she does not like how it makes her feel and would like to taper it further and agrees to continue current dose until Sunday and then go down to 2.5 mg. Mental Status Exam Mental Status Exam Patient Appearance: Appropriate Patient Orientation: Person, Place, Time and Situation Level of Consciousness: Alert Patient Behavior: Talkative and Good Eye Contact Mood Description: Calm and Anxious Affect Description: Constricted Patient Cognition Impaired: No Ability to Follow Directions: Good Speech Pattern: Spontaneous Speech Memory Description: Episodic Impaired Hallucinations: None Delusions: Present Thought Process: Goal Oriented Thought Content: positive for Goal Oriented, positive for Suicidal Ideation (denies) and positive for Homicidal Ideation (denies) Depressive Symptoms: Increased Irritability Judgement and Insight: impaired Diagnostics Vital Signs (24Hr): Vital Signs - 24 hr 06/06/22 20:25 Temperature 97.2 F Pulse Rate 89 Blood Pressure 117/69 BMI result Body Mass Index 20.2 Labs Results: 05/12/22 12:47 05/14/22 07:53 Medications Medications Current Medications Acetaminophen (Acetaminophen 325 Mg Tablet) 650 mg PO Q6H PRN PRN Reason: Headache/Pain Mild Scale (1-3) Last Admin: 05/22/22 02:29 Dose: 650 mg Al Hydroxide/Mg Hydroxide (Magnesium Hydrox/Alum Hydrox 30 Ml Oral.Susp) 30 ml PO Q6H PRN PRN Reason: Heartburn/Nausea Cariprazine (Cariprazine Hcl 1.5 Mg Capsule) 1.5 mg PO DAILY ADORE Last Admin: 06/07/22 08:27 Dose: 1.5 mg Clonidine HCl (Clonidine Hcl 0.1 Mg Tablet) 0.1 mg PO Q4H PRN; Protocol PRN Reason: anxiety Last Admin: 06/06/22 20:30 Dose: 0.1 mg Cyanocobalamin (Cyanocobalamin (Vitamin B-12) 100 Mcg Tablet) 100 mcg PO DAILY ADORE Last Admin: 06/07/22 08:27 Dose: 100 mcg Divalproex Sodium (Divalproex Sodium Er 500 Mg Tab.Er.24h) 500 mg PO BEDTIME ADORE Last Admin: 06/06/22 20:29 Dose: 500 mg Hydroxyzine HCl (Hydroxyzine Hcl 25 Mg Tablet) 25 mg PO BID ADORE Last Admin: 06/07/22 08:27 Dose: 25 mg Hydroxyzine HCl (Hydroxyzine Hcl 50 Mg Tablet) 50 mg PO Q6H PRN PRN Reason: Anxiety Last Admin: 05/24/22 02:24 Dose: 50 mg Ibuprofen (Ibuprofen 800 Mg Tablet) 800 mg PO Q8H PRN PRN Reason: Pain, Mild (Pain Scale 1-3) Last Admin: 05/22/22 14:11 Dose: 800 mg Magnesium Hydroxide (Milk Of Magnesia 30 Ml Oral.Susp) 30 ml PO DAILY PRN PRN Reason: Constipation Last Admin: 05/17/22 09:50 Dose: 30 ml Olanzapine (Olanzapine 2.5 Mg Tablet) 2.5 mg PO BID PRN PRN Reason: psychosis, severe anxiety Olanzapine (Olanzapine 5 Mg Tablet) 5 mg PO BEDTIME ADORE Last Admin: 06/06/22 20:29 Dose: 5 mg Prazosin HCl (Prazosin Hcl 1 Mg Capsule) 2 mg PO BEDTIME ADORE; Protocol Last Admin: 06/06/22 20:28 Dose: 2 mg Trazodone HCl (Trazodone Hcl 50 Mg Tablet) 50 mg PO BEDTIME PRN PRN Reason: Insomnia Last Admin: 05/18/22 20:47 Dose: 50 mg Allergies Allergies Allergy/AdvReac Type Severity Reaction Status Date / Time Penicillins AdvReac Unknown Verified 05/14/22 02:05 Assessment & Plan Assessment & Plan (1) Bipolar affective, manic, severe w/ psych: Status: Acute Code(s): F31.2 - Bipolar disorder, current episode manic severe with psychotic features Plan Admit to M5 15 minute checks Collaterals Start Zyprexa 10 mg HS and 5 mg BID PRN. Group and milieu treatment Disposition planning 05/15/22- Increase Olanzapine to 15 mg HS Begin reality testing with pt regarding Mr. Way's relationship as outlined in his email response. Three day notice, possible section seven 05/16/22- Depakote ER 500 mg HS Decrease Olanzapine to 10 mg HS 05/17/22- Continue current plan 05/19/22- Education regarding illness. Pt will see parents over the weekend. Team is looking at rehab possibilities. 05/20 guarded and not much for engaging; Continue current treatment plan 05/21 says she has bad anxiety -add clonidine 0.1 mg Q 4 p.r.n.; if BP too low can try 0.05 mg 05/22/22 continue current regime Pt/Family request [place]. 05/23/22 Continue current regime-pt will not trial any changes. Family requests application for [employer] which team is working on. 05/24/22 Continue current regime-referral to [employer]. 05/25/22 Pt has identified her goals for [employer] application. 05/26/22 Pt anxious for discharge. She may have the option to stay at her grandmother's home in [place] prior to residential admission. Will see if this will effect program admit requirements. 05/27: Continue current regimen and plans. Add prazosin 2 mg q.h.s. 05/28: Continue current regimen and plans. No changes were made today 05/29/22: Discharge planning 06/01/22: Discharge planning, medication intervention and adjustment family concurs with to help pt better manage sx-pt to decide. 06/02/22: Vraylar 1.5 mg daily 06/03/22: lower olanzapine to 5mg (some restlessness having started vraylar) 06/04/2022: No changes to current plan 06/05/22: Continue current regime 06/06/22: Continue medication education, support, encourage treatment compliance. 06/07/22: Patient calm, reasonable in discussing medications. Visual Journalist ordered Depakote level and liver panel. While Depakote is subtherapeutic, AST and ALT are both elevated. It seems ALT was moderately elevated prior to starting Depakote however it has raised since. Visual Journalist discontinued acetaminophen for now. [employer] Journalist is covering patient and not sure how imperative Depakote is to her stability. It is also possible that antipsychotic medication could be contributing to elevated liver enzymes. Will continue current regimen with changes detailed below. However will monitor her liver enzymes further and make sure stable. Increase Vraylar to 3 mg Decrease Zyprexa to 2.5 mg q.h.s. starting on 06/09 -Depakote level: 32.1, subtherapeutic -ammonia level: WNL -AST elevated at 42 -ALT elevated at 121 I spent minutes with the patient and/or on the patient floor today, greater than?50% of which was spent counseling/coordinating care. Patient educated on: diagnosis, medication risk/benefits and medical condition Informed Consent: understands Reason for contiued inpatient stay Substantial Risk for: rapid decompensation
[2022-06-07 11:32] LABS: Ammonia 37 umol/L (13-55)
[2022-06-07 11:39] LABS: Alanine Aminotransferase 121 U/L (0-31); Albumin Level 4.9 g/dL (3.5-5.0); Alkaline Phosphatase 77 U/L (39-117); Aspartate Amino Transferase 48 U/L (5-31); Bilirubin Direct 0.2 mg/dL (0.0-0.5); Bilirubin Total 0.6 mg/dL (0.0-1.0); Total Protein 7.9 g/dL (6.5-8.0)
[2022-06-07 11:46] LABS: Valproate 32.1 mcg/mL (50.0-100.0)
[2022-06-07 17:20] VITALS: BP 112/62; PULSE 92; RESP 18; O2SAT 99
[2022-06-07] MEDS: Prazosin HCL 1 MG CAPSULE 2 MG PO (19:14)
[2022-06-07] MEDS: Divalproex Sodium ER 500 MG TAB.ER.24H PO (19:15)
[2022-06-07] MEDS: OLANZapine 5 MG TABLET PO (19:15)
[2022-06-07] MEDS: cloNIDine HCL 0.1 MG TABLET PO (21:28)
[2022-06-08 07:00] VITALS: BMI 21.4
[2022-06-08 08:01] VITALS: BP 121/75; PULSE 99; RESP 16; TEMP 36.4; O2SAT 95
--- NOTE | 2022-06-08 08:02 | HO.PSYCHPN ---
Subjective Subjective Date of Service: 06/08/22 Reason For Visit: Depression Subjective Notes: Conditional Voluntary Interim History: Pt in bed. Flat and constricted affect. She denies any concerns in terms of SI/HI. She reports sleeping well. No VH/AH. Denies concerns with medications but also knows further adjustments to be discussed with her primary treatment team. Medication Compliance: Yes Side effects from medications: No Attending Groups: No Review of Systems Review of Systems Restlessness resolved Yes all other systems are reviewed and are negative Constitutional: Reports no additional constitutional complaints, Denies chills, Denies fever(s) and Denies night sweats Eyes: Reports no additional eye complaints, Denies blurry vision, Denies change in vision, Denies diplopia, Denies eye discharge, Denies loss of vision and Denies eye pain Denies dizziness Cardiovascular: Reports no additional cardiovascular complaints, Denies chest pain, Denies lightheadedness, Denies Loss of Consciousness and Denies dyspnea Respiratory: Reports no additional respiratory complaints and Denies dyspnea Gastrointestinal: Reports no additional gastrointestinal complaints, Denies abdominal pain, Denies melena, Denies hematochezia, Denies change in bowel habits and Denies change in stool character Musculoskeletal: Reports no additional musculoskeletal complaints, Denies numbness and Denies tingling Denies dizziness, Denies loss of vision, Denies numbness and Denies tingling Psychiatric: Denies homicidal ideation and Denies suicidal ideation Endocrine: Reports no additional endocrine complaints Hematologic/Lymphatic: Reports no additional hematologic/lymphatic complaints Allergic/Immunologic: Reports no additional allergic/immunologic complaints Mental Status Exam Mental Status Exam Patient Appearance: Appropriate Patient Orientation: Person, Place, Time and Situation Level of Consciousness: Alert Patient Behavior: Talkative and Good Eye Contact Mood Description: Calm and Anxious Affect Description: Constricted Patient Cognition Impaired: No Ability to Follow Directions: Good Speech Pattern: Spontaneous Speech Memory Description: Episodic Impaired Diagnostics Vital Signs (24Hr): Vital Signs - 24 hr 06/08/22 16:35 Temperature 97.6 F Pulse Rate 95 Respiratory Rate 16 Blood Pressure 111/61 Pulse Oximetry 96 Oxygen Delivery Method Room Air BMI result Body Mass Index 21.4 Labs Results: 05/12/22 12:47 05/14/22 07:53 Labs: Laboratory Results - last 48 hr 06/07/22 06/07/22 06/07/22 11:11 11:11 11:11 Total Bilirubin 0.6 Direct Bilirubin 0.2 AST 48 H D ALT 121 H Alkaline Phosphatase 77 D Ammonia 37 Total Protein 7.9 Albumin 4.9 Valproic Acid 32.1 L Medications Medications Current Medications Al Hydroxide/Mg Hydroxide (Magnesium Hydrox/Alum Hydrox 30 Ml Oral.Susp) 30 ml PO Q6H PRN PRN Reason: Heartburn/Nausea Cariprazine (Cariprazine Hcl 3 Mg Capsule) 3 mg PO DAILY ADORE Last Admin: 06/08/22 08:24 Dose: 3 mg Clonidine HCl (Clonidine Hcl 0.1 Mg Tablet) 0.1 mg PO Q4H PRN; Protocol PRN Reason: anxiety Last Admin: 06/08/22 20:48 Dose: 0.1 mg Cyanocobalamin (Cyanocobalamin (Vitamin B-12) 100 Mcg Tablet) 100 mcg PO DAILY ADORE Last Admin: 06/08/22 08:24 Dose: 100 mcg Divalproex Sodium (Divalproex Sodium Er 500 Mg Tab.Er.24h) 500 mg PO BEDTIME ADORE Last Admin: 06/08/22 19:54 Dose: 500 mg Hydroxyzine HCl (Hydroxyzine Hcl 25 Mg Tablet) 25 mg PO BID ADORE Last Admin: 06/08/22 19:54 Dose: 25 mg Hydroxyzine HCl (Hydroxyzine Hcl 50 Mg Tablet) 50 mg PO Q6H PRN PRN Reason: Anxiety Last Admin: 05/24/22 02:24 Dose: 50 mg Ibuprofen (Ibuprofen 800 Mg Tablet) 800 mg PO Q8H PRN PRN Reason: Pain, Mild (Pain Scale 1-3) Last Admin: 05/22/22 14:11 Dose: 800 mg Magnesium Hydroxide (Milk Of Magnesia 30 Ml Oral.Susp) 30 ml PO DAILY PRN PRN Reason: Constipation Last Admin: 05/17/22 09:50 Dose: 30 ml Olanzapine (Olanzapine 2.5 Mg Tablet) 2.5 mg PO BID PRN PRN Reason: psychosis, severe anxiety Olanzapine (Olanzapine 2.5 Mg Tablet) 2.5 mg PO BEDTIME ADORE Prazosin HCl (Prazosin Hcl 1 Mg Capsule) 2 mg PO BEDTIME ADORE; Protocol Last Admin: 06/08/22 19:54 Dose: 2 mg Trazodone HCl (Trazodone Hcl 50 Mg Tablet) 50 mg PO BEDTIME PRN PRN Reason: Insomnia Last Admin: 05/18/22 20:47 Dose: 50 mg Allergies Allergies Allergy/AdvReac Type Severity Reaction Status Date / Time Penicillins AdvReac Unknown Verified 05/14/22 02:05 Assessment & Plan Assessment & Plan (1) Bipolar affective, manic, severe w/ psych: Status: Acute Code(s): F31.2 - Bipolar disorder, current episode manic severe with psychotic features Plan Admit to M5 15 minute checks Collaterals Start Zyprexa 10 mg HS and 5 mg BID PRN. Group and milieu treatment Disposition planning 05/15/22- Increase Olanzapine to 15 mg HS Begin reality testing with pt regarding Mr. Way's relationship as outlined in his email response. Three day notice, possible section seven 05/16/22- Depakote ER 500 mg HS Decrease Olanzapine to 10 mg HS 05/17/22- Continue current plan 05/19/22- Education regarding illness. Pt will see parents over the weekend. Team is looking at rehab possibilities. 05/20 guarded and not much for engaging; Continue current treatment plan 05/21 says she has bad anxiety -add clonidine 0.1 mg Q 4 p.r.n.; if BP too low can try 0.05 mg 05/22/22 continue current regime Pt/Family request [id number] & other things you bake. 05/23/22 Continue current regime-pt will not trial any changes. Family requests application for [facility] which team is working on. 05/24/22 Continue current regime-referral to [facility]. 05/25/22 Pt has identified her goals for [facility] application. 05/26/22 Pt anxious for discharge. She may have the option to stay at her grandmother's home in [place] prior to residential admission. Will see if this will effect program admit requirements. 05/27: Continue current regimen and plans. Add prazosin 2 mg q.h.s. 05/28: Continue current regimen and plans. No changes were made today 05/29/22: Discharge planning 06/01/22: Discharge planning, medication intervention and adjustment family concurs with to help pt better manage sx-pt to decide. 06/02/22: Vraylar 1.5 mg daily 06/03/22: lower olanzapine to 5mg (some restlessness having started vraylar) 06/04/2022: No changes to current plan 06/05/22: Continue current regime 06/06/22: Continue medication education, support, encourage treatment compliance. 06/07/22: Patient calm, reasonable in discussing medications. Lead Systems Analyst ordered Depakote level and liver panel. While Depakote is subtherapeutic, AST and ALT are both elevated. It seems ALT was moderately elevated prior to starting Depakote however it has raised since. Lead Systems Analyst discontinued acetaminophen for now. Lead Systems Analyst is covering patient and not sure how imperative Depakote is to her stability. It is also possible that antipsychotic medication could be contributing to elevated liver enzymes. Will continue current regimen with changes detailed below. However will monitor her liver enzymes further and make sure stable. Increase Vraylar to 3 mg Decrease Zyprexa to 2.5 mg q.h.s. starting on 06/09 -Depakote level: 32.1, subtherapeutic -ammonia level: WNL -AST elevated at 42 -ALT elevated at 121 06/08 continue tx. I spent minutes with the patient and/or on the patient floor today, greater than?50% of which was spent counseling/coordinating care. Reason for contiued inpatient stay Substantial Risk for: inability to function
[2022-06-08] MEDS: Cyanocobalamin (Vitamin B-12) 100 MCG TABLET PO (08:24)
[2022-06-08] MEDS: hydrOXYzine HCL 25 MG TABLET PO ×2 (08:24→19:54)
[2022-06-08] MEDS: Cariprazine HCl 3 MG CAPSULE PO (08:24)
[2022-06-08 16:35] VITALS: BP 111/61; PULSE 95; RESP 16; TEMP 36.4; O2SAT 96
[2022-06-08] MEDS: Prazosin HCL 1 MG CAPSULE 2 MG PO (19:54)
[2022-06-08] MEDS: OLANZapine 5 MG TABLET PO (19:54)
[2022-06-08] MEDS: Divalproex Sodium ER 500 MG TAB.ER.24H PO (19:54)
[2022-06-08] MEDS: cloNIDine HCL 0.1 MG TABLET PO (20:48)
[2022-06-09 08:53] VITALS: BP 98/55; PULSE 83; RESP 18; TEMP 36.9; O2SAT 96
[2022-06-09] MEDS: hydrOXYzine HCL 25 MG TABLET PO ×2 (08:55→20:40)
[2022-06-09] MEDS: Cariprazine HCl 3 MG CAPSULE PO (08:55)
[2022-06-09] MEDS: Cyanocobalamin (Vitamin B-12) 100 MCG TABLET PO (08:56)
[2022-06-09 09:15] LABS: Alanine Aminotransferase 84 U/L (0-31); Albumin Level 4.4 g/dL (3.5-5.0); Alkaline Phosphatase 68 U/L (39-117); Aspartate Amino Transferase 34 U/L (5-31); Bilirubin Direct 0.3 mg/dL (0.0-0.5); Bilirubin Total 0.8 mg/dL (0.0-1.0); Total Protein 7.1 g/dL (6.5-8.0)
--- NOTE | 2022-06-09 14:33 | HO.PSYCHPN ---
Subjective Subjective Date of Service: 06/09/22 Reason For Visit: Depression Subjective Notes: Conditional Voluntary Healthcare Proxy: No Guardianship: No Medical Problems Affecting Mental Status: No Interim History: States she is OK today. Bored, tired of being in patient. Wanting to move to the next phase. Interview with Janet on 06/12. Tolerating Vraylar increase. Olanzapine to decrease to 2.5 mg HS Repeat LFT's next week Discussed Depakote and original plan for this to be temporary during transition-verbalized understanding. Tolerating room change-states this one is easier as she felt her last room-mate was targeting her Medication Compliance: Yes Side effects from medications: No Attending Groups: Intermittent Review of Systems Acute medical concerns: No Medical Review of Systems: unchanged Mental Status Exam Mental Status Exam Patient Appearance: Appropriate Patient Orientation: Person, Place, Time and Situation Level of Consciousness: Alert Patient Behavior: Talkative and Good Eye Contact Mood Description: Withdrawn Affect Description: Flat Patient Cognition Impaired: No Ability to Follow Directions: Good Speech Pattern: Spontaneous Speech Memory Description: Episodic Impaired Hallucinations: None Delusions: Present Thought Process: Goal Oriented Thought Content: positive for Goal Oriented, positive for Suicidal Ideation (denies) and positive for Homicidal Ideation (denies) Depressive Symptoms: Increased Irritability Abnormal Motor Activity Signs and Symptoms: Restlessness Judgement: Fair Diagnostics Vital Signs (24Hr): Vital Signs - 24 hr 06/08/22 16:35 06/09/22 08:53 Temperature 97.6 F 98.5 F Pulse Rate 95 83 Respiratory Rate 16 18 Blood Pressure 111/61 98/55 L Pulse Oximetry 96 96 Oxygen Delivery Method Room Air Room Air BMI result Body Mass Index 21.4 Labs Results: 05/12/22 12:47 05/14/22 07:53 Labs: Laboratory Results - last 48 hr 06/09/22 08:43 Total Bilirubin 0.8 Direct Bilirubin 0.3 AST 34 H ALT 84 H Alkaline Phosphatase 68 Total Protein 7.1 Albumin 4.4 Medications Medications Current Medications Al Hydroxide/Mg Hydroxide (Magnesium Hydrox/Alum Hydrox 30 Ml Oral.Susp) 30 ml PO Q6H PRN PRN Reason: Heartburn/Nausea Cariprazine (Cariprazine Hcl 3 Mg Capsule) 3 mg PO DAILY ADORE Last Admin: 06/09/22 08:55 Dose: 3 mg Clonidine HCl (Clonidine Hcl 0.1 Mg Tablet) 0.1 mg PO Q4H PRN; Protocol PRN Reason: anxiety Last Admin: 06/08/22 20:48 Dose: 0.1 mg Cyanocobalamin (Cyanocobalamin (Vitamin B-12) 100 Mcg Tablet) 100 mcg PO DAILY ADORE Last Admin: 06/09/22 08:56 Dose: 100 mcg Divalproex Sodium (Divalproex Sodium Er 500 Mg Tab.Er.24h) 500 mg PO BEDTIME ADORE Last Admin: 06/08/22 19:54 Dose: 500 mg Hydroxyzine HCl (Hydroxyzine Hcl 25 Mg Tablet) 25 mg PO BID ADORE Last Admin: 06/09/22 08:55 Dose: 25 mg Hydroxyzine HCl (Hydroxyzine Hcl 50 Mg Tablet) 50 mg PO Q6H PRN PRN Reason: Anxiety Last Admin: 05/24/22 02:24 Dose: 50 mg Ibuprofen (Ibuprofen 800 Mg Tablet) 800 mg PO Q8H PRN PRN Reason: Pain, Mild (Pain Scale 1-3) Last Admin: 05/22/22 14:11 Dose: 800 mg Magnesium Hydroxide (Milk Of Magnesia 30 Ml Oral.Susp) 30 ml PO DAILY PRN PRN Reason: Constipation Last Admin: 05/17/22 09:50 Dose: 30 ml Olanzapine (Olanzapine 2.5 Mg Tablet) 2.5 mg PO BID PRN PRN Reason: psychosis, severe anxiety Olanzapine (Olanzapine 2.5 Mg Tablet) 2.5 mg PO BEDTIME ADORE Prazosin HCl (Prazosin Hcl 1 Mg Capsule) 2 mg PO BEDTIME ADORE; Protocol Last Admin: 06/08/22 19:54 Dose: 2 mg Trazodone HCl (Trazodone Hcl 50 Mg Tablet) 50 mg PO BEDTIME PRN PRN Reason: Insomnia Last Admin: 05/18/22 20:47 Dose: 50 mg Allergies Allergies Allergy/AdvReac Type Severity Reaction Status Date / Time Penicillins AdvReac Unknown Verified 05/14/22 02:05 Assessment & Plan Assessment & Plan (1) Bipolar affective, manic, severe w/ psych: Status: Acute Code(s): F31.2 - Bipolar disorder, current episode manic severe with psychotic features Plan Admit to M5 15 minute checks Collaterals Start Zyprexa 10 mg HS and 5 mg BID PRN. Group and milieu treatment Disposition planning 05/15/22- Increase Olanzapine to 15 mg HS Begin reality testing with pt regarding Mr. Way's relationship as outlined in his email response. Three day notice, possible section seven 05/16/22- Depakote ER 500 mg HS Decrease Olanzapine to 10 mg HS 05/17/22- Continue current plan 05/19/22- Education regarding illness. Pt will see parents over the weekend. Team is looking at rehab possibilities. 05/20 guarded and not much for engaging; Continue current treatment plan 05/21 says she has bad anxiety -add clonidine 0.1 mg Q 4 p.r.n.; if BP too low can try 0.05 mg 05/22/22 continue current regime Pt/Family request [facility]. 05/23/22 Continue current regime-pt will not trial any changes. Family requests application for [facility] which team is working on. 05/24/22 Continue current regime-referral to [facility]. 05/25/22 Pt has identified her goals for [facility] application. 05/26/22 Pt anxious for discharge. She may have the option to stay at her grandmother's home in [place] prior to residential admission. Will see if this will effect program admit requirements. 05/27: Continue current regimen and plans. Add prazosin 2 mg q.h.s. 05/28: Continue current regimen and plans. No changes were made today 05/29/22: Discharge planning 06/01/22: Discharge planning, medication intervention and adjustment family concurs with to help pt better manage sx-pt to decide. 06/02/22: Vraylar 1.5 mg daily 06/03/22: lower olanzapine to 5mg (some restlessness having started vraylar) 06/04/2022: No changes to current plan 06/05/22: Continue current regime 06/06/22: Continue medication education, support, encourage treatment compliance. 06/07/22: Patient calm, reasonable in discussing medications. Water Leak Repairer ordered Depakote level and liver panel. While Depakote is subtherapeutic, AST and ALT are both elevated. It seems ALT was moderately elevated prior to starting Depakote however it has raised since. Water Leak Repairer discontinued acetaminophen for now. Water Leak Repairer is covering patient and not sure how imperative Depakote is to her stability. It is also possible that antipsychotic medication could be contributing to elevated liver enzymes. Will continue current regimen with changes detailed below. However will monitor her liver enzymes further and make sure stable. Increase Vraylar to 3 mg Decrease Zyprexa to 2.5 mg q.h.s. starting on 06/09 -Depakote level: 32.1, subtherapeutic -ammonia level: WNL -AST elevated at 42 -ALT elevated at 121 06/08 continue tx. 06/09/22: Continue current plan I spent minutes with the patient and/or on the patient floor today, greater than?50% of which was spent counseling/coordinating care. Patient educated on: therapeutic strategies Informed Consent: further education needed Reason for contiued inpatient stay Substantial Risk for: rapid decompensation
[2022-06-09 18:00] VITALS: BP 103/59; PULSE 89; TEMP 36.7; O2SAT 97
[2022-06-09] MEDS: cloNIDine HCL 0.1 MG TABLET PO (20:40)
[2022-06-09] MEDS: OLANZapine 2.5 MG TABLET PO (20:40)
[2022-06-09] MEDS: Prazosin HCL 1 MG CAPSULE 2 MG PO (20:40)
[2022-06-09] MEDS: Divalproex Sodium ER 500 MG TAB.ER.24H PO (20:41)
[2022-06-10] MEDS: cloNIDine HCL 0.1 MG TABLET PO ×2 (02:32→21:00)
[2022-06-10 08:10] VITALS: BP 90/58; PULSE 81; RESP 16; TEMP 36.6; O2SAT 96
[2022-06-10] MEDS: Cyanocobalamin (Vitamin B-12) 100 MCG TABLET PO (08:41)
[2022-06-10] MEDS: Cariprazine HCl 3 MG CAPSULE PO (08:41)
[2022-06-10] MEDS: hydrOXYzine HCL 25 MG TABLET PO ×2 (08:41→21:00)
--- NOTE | 2022-06-10 11:30 | HO.PSYCHPN ---
Subjective Subjective Date of Service: 06/10/22 Reason For Visit: Depression Interim History: Patient seen and discussed. She reports she feels depressed because she has been here a long time. She is concerned about which program she will go to. Otherwise she reports she is OK today. She is tolerating her current regimen. Denies SI. Review of Systems Review of Systems Restlessness resolved Yes all other systems are reviewed and are negative Constitutional: Reports no additional constitutional complaints, Denies chills, Denies fever(s) and Denies night sweats Eyes: Reports no additional eye complaints, Denies blurry vision, Denies change in vision, Denies diplopia, Denies eye discharge, Denies loss of vision and Denies eye pain Denies dizziness Cardiovascular: Reports no additional cardiovascular complaints, Denies chest pain, Denies lightheadedness, Denies Loss of Consciousness and Denies dyspnea Respiratory: Reports no additional respiratory complaints and Denies dyspnea Gastrointestinal: Reports no additional gastrointestinal complaints, Denies abdominal pain, Denies melena, Denies hematochezia, Denies change in bowel habits and Denies change in stool character Musculoskeletal: Reports no additional musculoskeletal complaints, Denies numbness and Denies tingling Denies dizziness, Denies loss of vision, Denies numbness and Denies tingling Psychiatric: Denies homicidal ideation and Denies suicidal ideation Endocrine: Reports no additional endocrine complaints Hematologic/Lymphatic: Reports no additional hematologic/lymphatic complaints Allergic/Immunologic: Reports no additional allergic/immunologic complaints Mental Status Exam Mental Status Exam Narrative: Pleasant. Engaged. Good self-care. Organized. Reports feeling less depressed. No SI or HI. No overt psychosis noted. Insight and judgment fair Patient Appearance: Appropriate Patient Orientation: Person, Place, Time and Situation Level of Consciousness: Alert Patient Behavior: Talkative and Good Eye Contact Mood Description: Withdrawn Affect Description: Flat Patient Cognition Impaired: No Ability to Follow Directions: Good Speech Pattern: Spontaneous Speech Memory Description: Episodic Impaired Diagnostics Vital Signs (24Hr): Vital Signs - 24 hr 06/10/22 08:10 Temperature 97.8 F Pulse Rate 81 Respiratory Rate 16 Blood Pressure 90/58 L Pulse Oximetry 96 Oxygen Delivery Method Room Air BMI result Body Mass Index 21.4 Labs Results: 05/12/22 12:47 05/14/22 07:53 Labs: Laboratory Results - last 48 hr 06/09/22 08:43 Total Bilirubin 0.8 Direct Bilirubin 0.3 AST 34 H ALT 84 H Alkaline Phosphatase 68 Total Protein 7.1 Albumin 4.4 Medications Medications Current Medications Al Hydroxide/Mg Hydroxide (Magnesium Hydrox/Alum Hydrox 30 Ml Oral.Susp) 30 ml PO Q6H PRN PRN Reason: Heartburn/Nausea Cariprazine (Cariprazine Hcl 3 Mg Capsule) 3 mg PO DAILY ADORE Last Admin: 06/10/22 08:41 Dose: 3 mg Clonidine HCl (Clonidine Hcl 0.1 Mg Tablet) 0.1 mg PO Q4H PRN; Protocol PRN Reason: anxiety Last Admin: 06/10/22 02:32 Dose: 0.1 mg Cyanocobalamin (Cyanocobalamin (Vitamin B-12) 100 Mcg Tablet) 100 mcg PO DAILY ADORE Last Admin: 06/10/22 08:41 Dose: 100 mcg Divalproex Sodium (Divalproex Sodium Er 500 Mg Tab.Er.24h) 500 mg PO BEDTIME ADORE Last Admin: 06/09/22 20:41 Dose: 500 mg Hydroxyzine HCl (Hydroxyzine Hcl 25 Mg Tablet) 25 mg PO BID ADORE Last Admin: 06/10/22 08:41 Dose: 25 mg Hydroxyzine HCl (Hydroxyzine Hcl 50 Mg Tablet) 50 mg PO Q6H PRN PRN Reason: Anxiety Last Admin: 05/24/22 02:24 Dose: 50 mg Ibuprofen (Ibuprofen 800 Mg Tablet) 800 mg PO Q8H PRN PRN Reason: Pain, Mild (Pain Scale 1-3) Last Admin: 05/22/22 14:11 Dose: 800 mg Magnesium Hydroxide (Milk Of Magnesia 30 Ml Oral.Susp) 30 ml PO DAILY PRN PRN Reason: Constipation Last Admin: 05/17/22 09:50 Dose: 30 ml Olanzapine (Olanzapine 2.5 Mg Tablet) 2.5 mg PO BID PRN PRN Reason: psychosis, severe anxiety Olanzapine (Olanzapine 2.5 Mg Tablet) 2.5 mg PO BEDTIME ADORE Last Admin: 06/09/22 20:40 Dose: 2.5 mg Prazosin HCl (Prazosin Hcl 1 Mg Capsule) 2 mg PO BEDTIME ADORE; Protocol Last Admin: 06/09/22 20:40 Dose: 2 mg Trazodone HCl (Trazodone Hcl 50 Mg Tablet) 50 mg PO BEDTIME PRN PRN Reason: Insomnia Last Admin: 05/18/22 20:47 Dose: 50 mg Allergies Allergies Allergy/AdvReac Type Severity Reaction Status Date / Time Penicillins AdvReac Unknown Verified 05/14/22 02:05 Assessment & Plan Assessment & Plan (1) Bipolar affective, manic, severe w/ psych: Status: Acute Code(s): F31.2 - Bipolar disorder, current episode manic severe with psychotic features Plan Admit to M5 15 minute checks Collaterals Start Zyprexa 10 mg HS and 5 mg BID PRN. Group and milieu treatment Disposition planning 05/15/22- Increase Olanzapine to 15 mg HS Begin reality testing with pt regarding Mr. Way's relationship as outlined in his email response. Three day notice, possible section seven 05/16/22- Depakote ER 500 mg HS Decrease Olanzapine to 10 mg HS 05/17/22- Continue current plan 05/19/22- Education regarding illness. Pt will see parents over the weekend. Team is looking at rehab possibilities. 05/20 guarded and not much for engaging; Continue current treatment plan 05/21 says she has bad anxiety -add clonidine 0.1 mg Q 4 p.r.n.; if BP too low can try 0.05 mg 05/22/22 continue current regime Pt/Family request [employer]. 05/23/22 Continue current regime-pt will not trial any changes. Family requests application for [email or web address] which team is working on. 05/24/22 Continue current regime-referral to [email or web address]. 05/25/22 Pt has identified her goals for [email or web address] application. 05/26/22 Pt anxious for discharge. She may have the option to stay at her grandmother's home in [place] prior to residential admission. Will see if this will effect program admit requirements. 05/27: Continue current regimen and plans. Add prazosin 2 mg q.h.s. 05/28: Continue current regimen and plans. No changes were made today 05/29/22: Discharge planning 06/01/22: Discharge planning, medication intervention and adjustment family concurs with to help pt better manage sx-pt to decide. 06/02/22: Vraylar 1.5 mg daily 06/03/22: lower olanzapine to 5mg (some restlessness having started vraylar) 06/04/2022: No changes to current plan 06/05/22: Continue current regime 06/06/22: Continue medication education, support, encourage treatment compliance. 06/07/22: Patient calm, reasonable in discussing medications. Rn Rehabilitation ordered Depakote level and liver panel. While Depakote is subtherapeutic, AST and ALT are both elevated. It seems ALT was moderately elevated prior to starting Depakote however it has raised since. Rn Rehabilitation discontinued acetaminophen for now. Rn Rehabilitation is covering patient and not sure how imperative Depakote is to her stability. It is also possible that antipsychotic medication could be contributing to elevated liver enzymes. Will continue current regimen with changes detailed below. However will monitor her liver enzymes further and make sure stable. Increase Vraylar to 3 mg Decrease Zyprexa to 2.5 mg q.h.s. starting on 06/09 -Depakote level: 32.1, subtherapeutic -ammonia level: WNL -AST elevated at 42 -ALT elevated at 121 06/08 continue tx. 06/09/22: Continue current plan 06/10: Continue current plan. I spent minutes with the patient and/or on the patient floor today, greater than?50% of which was spent counseling/coordinating care. Reason for contiued inpatient stay Substantial Risk for: inability to function and rapid decompensation
[2022-06-10 20:59] VITALS: BP 116/65; PULSE 91; RESP 16; TEMP 36.8
[2022-06-10] MEDS: OLANZapine 2.5 MG TABLET PO (21:00)
[2022-06-10] MEDS: Prazosin HCL 1 MG CAPSULE 2 MG PO (21:00)
[2022-06-10] MEDS: Divalproex Sodium ER 500 MG TAB.ER.24H PO (21:00)
[2022-06-11] MEDS: cloNIDine HCL 0.1 MG TABLET PO ×2 (04:44→20:35)
[2022-06-11 08:01] VITALS: BP 82/46; PULSE 95; RESP 16; TEMP 36.2; O2SAT 95
[2022-06-11] MEDS: hydrOXYzine HCL 25 MG TABLET PO ×2 (09:13→20:35)
[2022-06-11] MEDS: Cariprazine HCl 3 MG CAPSULE PO (09:13)
[2022-06-11] MEDS: Cyanocobalamin (Vitamin B-12) 100 MCG TABLET PO (09:13)
--- NOTE | 2022-06-11 11:00 | P.PNPSI_ITS ---
Subjective Subjective Date of Service: 06/11/22 Reason For Visit: Depression Interim History: Patient seen and discussed. Patient appears dismissive and guarded. She reports she feels depressed because she has been here a long time. She is concerned about which program she will go to. Otherwise she reports she is OK today. She is tolerating her current medication regimen. Denies SI. Review of Systems Review of Systems Restlessness resolved Yes all other systems are reviewed and are negative Constitutional: Reports no additional constitutional complaints, Denies chills, Denies fever(s) and Denies night sweats Eyes: Reports no additional eye complaints, Denies blurry vision, Denies change in vision, Denies diplopia, Denies eye discharge, Denies loss of vision and Denies eye pain Denies dizziness Cardiovascular: Reports no additional cardiovascular complaints, Denies chest pain, Denies lightheadedness, Denies Loss of Consciousness and Denies dyspnea Respiratory: Reports no additional respiratory complaints and Denies dyspnea Gastrointestinal: Reports no additional gastrointestinal complaints, Denies abdominal pain, Denies melena, Denies hematochezia, Denies change in bowel habits and Denies change in stool character Musculoskeletal: Reports no additional musculoskeletal complaints, Denies numbness and Denies tingling Denies dizziness, Denies loss of vision, Denies numbness and Denies tingling Psychiatric: Denies homicidal ideation and Denies suicidal ideation Endocrine: Reports no additional endocrine complaints Hematologic/Lymphatic: Reports no additional hematologic/lymphatic complaints Allergic/Immunologic: Reports no additional allergic/immunologic complaints Mental Status Exam Mental Status Exam Narrative: Pleasant. Engaged. Good self-care. Organized. Reports feeling less depressed. No SI or HI. No overt psychosis noted. Insight and judgment fair Patient Appearance: Appropriate Patient Orientation: Person, Place, Time and Situation Level of Consciousness: Alert Patient Behavior: Talkative and Good Eye Contact Mood Description: Withdrawn Affect Description: Flat Patient Cognition Impaired: No Ability to Follow Directions: Good Speech Pattern: Spontaneous Speech Memory Description: Episodic Impaired Diagnostics Vital Signs (24Hr): Vital Signs - 24 hr 06/10/22 20:59 06/11/22 08:01 Temperature 98.3 F 97.2 F Pulse Rate 91 95 Respiratory Rate 16 16 Blood Pressure 116/65 82/46 L Pulse Oximetry 95 Oxygen Delivery Method Room Air BMI result Body Mass Index 21.4 Labs Results: 05/12/22 12:47 05/14/22 07:53 Medications Medications Current Medications Al Hydroxide/Mg Hydroxide (Magnesium Hydrox/Alum Hydrox 30 Ml Oral.Susp) 30 ml PO Q6H PRN PRN Reason: Heartburn/Nausea Cariprazine (Cariprazine Hcl 3 Mg Capsule) 3 mg PO DAILY ADORE Last Admin: 06/11/22 09:13 Dose: 3 mg Clonidine HCl (Clonidine Hcl 0.1 Mg Tablet) 0.1 mg PO Q4H PRN; Protocol PRN Reason: anxiety Last Admin: 06/11/22 04:44 Dose: 0.1 mg Cyanocobalamin (Cyanocobalamin (Vitamin B-12) 100 Mcg Tablet) 100 mcg PO DAILY [facility]ORE Last Admin: 06/11/22 09:13 Dose: 100 mcg Divalproex Sodium (Divalproex Sodium Er 500 Mg Tab.Er.24h) 500 mg PO BEDTIME ADORE Last Admin: 06/10/22 21:00 Dose: 500 mg Hydroxyzine HCl (Hydroxyzine Hcl 25 Mg Tablet) 25 mg PO BID ADORE Last Admin: 06/11/22 09:13 Dose: 25 mg Hydroxyzine HCl (Hydroxyzine Hcl 50 Mg Tablet) 50 mg PO Q6H PRN PRN Reason: Anxiety Last Admin: 05/24/22 02:24 Dose: 50 mg Ibuprofen (Ibuprofen 800 Mg Tablet) 800 mg PO Q8H PRN PRN Reason: Pain, Mild (Pain Scale 1-3) Last Admin: 05/22/22 14:11 Dose: 800 mg Magnesium Hydroxide (Milk Of Magnesia 30 Ml Oral.Susp) 30 ml PO DAILY PRN PRN Reason: Constipation Last Admin: 05/17/22 09:50 Dose: 30 ml Olanzapine (Olanzapine 2.5 Mg Tablet) 2.5 mg PO BID PRN PRN Reason: psychosis, severe anxiety Olanzapine (Olanzapine 2.5 Mg Tablet) 2.5 mg PO BEDTIME ADORE Last Admin: 06/10/22 21:00 Dose: 2.5 mg Prazosin HCl (Prazosin Hcl 1 Mg Capsule) 2 mg PO BEDTIME ADORE; Protocol Last Admin: 06/10/22 21:00 Dose: 2 mg Trazodone HCl (Trazodone Hcl 50 Mg Tablet) 50 mg PO BEDTIME PRN PRN Reason: Insomnia Last Admin: 05/18/22 20:47 Dose: 50 mg Allergies Allergies Allergy/AdvReac Type Severity Reaction Status Date / Time Penicillins AdvReac Unknown Verified 05/14/22 02:05 Assessment & Plan Assessment & Plan (1) Bipolar affective, manic, severe w/ psych: Status: Acute Code(s): F31.2 - Bipolar disorder, current episode manic severe with psychotic features Plan Admit to M5 15 minute checks Collaterals Start Zyprexa 10 mg HS and 5 mg BID PRN. Group and milieu treatment Disposition planning 05/15/22- Increase Olanzapine to 15 mg HS Begin reality testing with pt regarding Mr. Way's relationship as outlined in his email response. Three day notice, possible section seven 05/16/22- Depakote ER 500 mg HS Decrease Olanzapine to 10 mg HS 05/17/22- Continue current plan 05/19/22- Education regarding illness. Pt will see parents over the weekend. Team is looking at rehab possibilities. 05/20 guarded and not much for engaging; Continue current treatment plan 05/21 says she has bad anxiety -add clonidine 0.1 mg Q 4 p.r.n.; if BP too low can try 0.05 mg 05/22/22 continue current regime Pt/Family request [facility]. 05/23/22 Continue current regime-pt will not trial any changes. Family requests application for [employer] which team is working on. 05/24/22 Continue current regime-referral to [employer]. 05/25/22 Pt has identified her goals for [employer] application. 05/26/22 Pt anxious for discharge. She may have the option to stay at her grandmother's home in [place] prior to residential admission. Will see if this will effect program admit requirements. 05/27: Continue current regimen and plans. Add prazosin 2 mg q.h.s. 05/28: Continue current regimen and plans. No changes were made today 05/29/22: Discharge planning 06/01/22: Discharge planning, medication intervention and adjustment family concurs with to help pt better manage sx-pt to decide. 06/02/22: Vraylar 1.5 mg daily 06/03/22: lower olanzapine to 5mg (some restlessness having started vraylar) 06/04/2022: No changes to current plan 06/05/22: Continue current regime 06/06/22: Continue medication education, support, encourage treatment compliance. 06/07/22: Patient calm, reasonable in discussing medications. Company Dancer ordered Depakote level and liver panel. While Depakote is sub therapeutic, AST and ALT are both elevated. It seems ALT was moderately elevated prior to starting Depakote however it has raised since. Company Dancer discontinued acetaminophen for now. Company Dancer is covering patient and not sure how imperative Depakote is to her stability. It is also possible that antipsychotic medication could be contributing to elevated liver enzymes. Will continue current regimen with changes detailed below. However will monitor her liver enzymes further and make sure stable. Increase Vraylar to 3 mg Decrease Zyprexa to 2.5 mg q.h.s. starting on 06/09 -Depakote level: 32.1, subtherapeutic -ammonia level: WNL -AST elevated at 42 -ALT elevated at 121 06/08 continue tx. 06/09/22: Continue current plan 06/10: Continue current plan. 06/11: Continue current treatment plan. I spent minutes with the patient and/or on the patient floor today, g reater than?50% of which was spent counseling/coordinating care. Reason for contiued inpatient stay Substantial Risk for: harm to others, inability to function and rapid decompensation
[2022-06-11 20:30] VITALS: BP 112/72; PULSE 92; RESP 16; TEMP 36.3
[2022-06-11] MEDS: OLANZapine 2.5 MG TABLET PO (20:35)
[2022-06-11] MEDS: Divalproex Sodium ER 500 MG TAB.ER.24H PO (20:35)
[2022-06-11] MEDS: Prazosin HCL 1 MG CAPSULE 2 MG PO (20:35)
[2022-06-12 06:00] VITALS: BP 97/56; PULSE 85; RESP 18; TEMP 36.2; O2SAT 99
[2022-06-12] MEDS: hydrOXYzine HCL 25 MG TABLET PO ×2 (09:15→20:45)
[2022-06-12] MEDS: Cariprazine HCl 3 MG CAPSULE PO (09:15)
[2022-06-12] MEDS: Cyanocobalamin (Vitamin B-12) 100 MCG TABLET PO (09:16)
--- NOTE | 2022-06-12 16:51 | P.PNPSI_ITS ---
Subjective Subjective Date of Service: 06/12/22 Reason For Visit: Depression Subjective Notes: Conditional Voluntary Healthcare Proxy: No Guardianship: No Medical Problems Affecting Mental Status: No Interim History: Interview with Janet Castellanos went well per pt report. Pt is accepted. Will discharge 06/15 to prepare for admission. Pt reports she is pleased. Application sent to [facility] (insurance) for continuation of pt's medication regime. Will submit prescriptions 06/13. Parents visited over the weekend, they report they see an improvement in pt's overall condition. Pt celebrating her birthday today. Medication Compliance: Yes Side effects from medications: No Attending Groups: Intermittent Review of Systems Acute medical concerns: No Medical Review of Systems: unchanged Mental Status Exam Mental Status Exam Patient Appearance: Appropriate Patient Orientation: Person, Place, Time and Situation Level of Consciousness: Alert Patient Behavior: Appropriate, Talkative, Cooperative and Good Eye Contact Mood Description: Apprehensive Affect Description: Apprehensive Patient Cognition Impaired: No Ability to Follow Directions: Good Speech Pattern: Spontaneous Speech Memory Description: Intact Hallucinations: None Delusions: Not Present Thought Process: Goal Oriented Thought Content: positive for Goal Oriented Depressive Symptoms: Increased Anxiety Abnormal Motor Activity Signs and Symptoms: Restlessness Judgement: Good Diagnostics Vital Signs (24Hr): Vital Signs - 24 hr 06/11/22 20:30 06/12/22 06:00 Temperature 97.3 F 97.1 F Pulse Rate 92 85 Respiratory Rate 16 18 Blood Pressure 112/72 97/56 L Pulse Oximetry 99 Oxygen Delivery Method Room Air BMI result Body Mass Index 21.4 Labs Results: 05/12/22 12:47 05/14/22 07:53 Medications Medications Current Medications Al Hydroxide/Mg Hydroxide (Magnesium Hydrox/Alum Hydrox 30 Ml Oral.Susp) 30 ml PO Q6H PRN PRN Reason: Heartburn/Nausea Cariprazine (Cariprazine Hcl 3 Mg Capsule) 3 mg PO DAILY [facility]ORE Last Admin: 06/12/22 09:15 Dose: 3 mg Clonidine HCl (Clonidine Hcl 0.1 Mg Tablet) 0.1 mg PO Q4H PRN; Protocol PRN Reason: anxiety Last Admin: 06/11/22 20:35 Dose: 0.1 mg Cyanocobalamin (Cyanocobalamin (Vitamin B-12) 100 Mcg Tablet) 100 mcg PO DAILY [facility] Last Admin: 06/12/22 09:16 Dose: 100 mcg Divalproex Sodium (Divalproex Sodium Er 500 Mg Tab.Er.24h) 500 mg PO BEDTIME [facility]ORE Last Admin: 06/11/22 20:35 Dose: 500 mg Hydroxyzine HCl (Hydroxyzine Hcl 25 Mg Tablet) 25 mg PO BID ADORE Last Admin: 06/12/22 09:15 Dose: 25 mg Hydroxyzine HCl (Hydroxyzine Hcl 50 Mg Tablet) 50 mg PO Q6H PRN PRN Reason: Anxiety Last Admin: 05/24/22 02:24 Dose: 50 mg Ibuprofen (Ibuprofen 800 Mg Tablet) 800 mg PO Q8H PRN PRN Reason: Pain, Mild (Pain Scale 1-3) Last Admin: 05/22/22 14:11 Dose: 800 mg Magnesium Hydroxide (Milk Of Magnesia 30 Ml Oral.Susp) 30 ml PO DAILY PRN PRN Reason: Constipation Last Admin: 05/17/22 09:50 Dose: 30 ml Olanzapine (Olanzapine 2.5 Mg Tablet) 2.5 mg PO BID PRN PRN Reason: psychosis, severe anxiety Olanzapine (Olanzapine 2.5 Mg Tablet) 2.5 mg PO BEDTIME ADORE Last Admin: 06/11/22 20:35 Dose: 2.5 mg Prazosin HCl (Prazosin Hcl 1 Mg Capsule) 2 mg PO BEDTIME ADORE; Protocol Last Admin: 06/11/22 20:35 Dose: 2 mg Trazodone HCl (Trazodone Hcl 50 Mg Tablet) 50 mg PO BEDTIME PRN PRN Reason: Insomnia Last Admin: 05/18/22 20:47 Dose: 50 mg Allergies Allergies Allergy/AdvReac Type Severity Reaction Status Date / Time Penicillins AdvReac Unknown Verified 05/14/22 02:05 Assessment & Plan Assessment & Plan (1) Bipolar affective, manic, severe w/ psych: Status: Acute Code(s): F31.2 - Bipolar disorder, current episode manic severe with psychotic features Plan Admit to M5 15 minute checks Collaterals Start Zyprexa 10 mg HS and 5 mg BID PRN. Group and milieu treatment Disposition planning 05/15/22- Increase Olanzapine to 15 mg HS Begin reality testing with pt regarding Mr. Way's relationship as outlined in his email response. Three day notice, possible section seven 05/16/22- Depakote ER 500 mg HS Decrease Olanzapine to 10 mg HS 05/17/22- Continue current plan 05/19/22- Education regarding illness. Pt will see parents over the weekend. Team is looking at rehab possibilities. 05/20 guarded and not much for engaging; Continue current treatment plan 05/21 says she has bad anxiety -add clonidine 0.1 mg Q 4 p.r.n.; if BP too low can try 0.05 mg 05/22/22 continue current regime Pt/Family request [facility]. 05/23/22 Continue current regime-pt will not trial any changes. Family requests application for [employer] which team is working on. 05/24/22 Continue current regime-referral to [employer]. 05/25/22 Pt has identified her goals for [employer] application. 05/26/22 Pt anxious for discharge. She may have the option to stay at her grandmother's home in [place] prior to residential admission. Will see if this will effect program admit requirements. 05/27: Continue current regimen and plans. Add prazosin 2 mg q.h.s. 05/28: Continue current regimen and plans. No changes were made today 05/29/22: Discharge planning 06/01/22: Discharge planning, medication intervention and adjustment family concurs with to help pt better manage sx-pt to decide. 06/02/22: Vraylar 1.5 mg daily 06/03/22: lower olanzapine to 5mg (some restlessness having started vraylar) 06/04/2022: No changes to current plan 06/05/22: Continue current regime 06/06/22: Continue medication education, support, encourage treatment co mpliance. 06/07/22: Patient calm, reasonable in discussing medications. Chocolate Temperer ordered Depakote level and liver panel. While Depakote is subtherapeutic, AST and ALT are both elevated. It seems ALT was moderately elevated prior to starting Depakote however it has raised since. Chocolate Temperer discontinued acetaminophen for now. Chocolate Temperer is covering patient and not sure how imperative Depakote is to her stability. It is also possible that antipsychotic medication could be contributing to elevated liver enzymes. Will continue current regimen with changes detailed below. However will monitor her liver enzymes further and make sure stable. Increase Vraylar to 3 mg Decrease Zyprexa to 2.5 mg q.h.s. starting on 06/09 -Depakote level: 32.1, subtherapeutic -ammonia level: WNL -AST elevated at 42 -ALT elevated at 121 06/08 continue tx. 06/09/22: Continue current plan 06/10: Continue current plan. 06/11: Continue current treatment plan. 06/12/22: Pt accepted to [facility] after her interview. Discharge 06/15 Insurance PA for meds submitted. I spent minutes with the patient and/or on the patient floor today, greater than?50% of which was spent counseling/coordinating care. Informed Consent: understands Reason for contiued inpatient stay Substantial Risk for: rapid decompensation
[2022-06-12 18:00] VITALS: BP 110/58; PULSE 92; TEMP 36.5; O2SAT 97
[2022-06-12] MEDS: cloNIDine HCL 0.1 MG TABLET PO (20:45)
[2022-06-12] MEDS: OLANZapine 2.5 MG TABLET PO (20:45)
[2022-06-12] MEDS: Divalproex Sodium ER 500 MG TAB.ER.24H PO (20:45)
[2022-06-12] MEDS: Prazosin HCL 1 MG CAPSULE 2 MG PO (20:45)
[2022-06-13] MEDS: cloNIDine HCL 0.1 MG TABLET PO ×2 (04:09→21:07)
[2022-06-13] MEDS: Cariprazine HCl 3 MG CAPSULE PO (08:27)
[2022-06-13] MEDS: Cyanocobalamin (Vitamin B-12) 100 MCG TABLET PO (08:27)
[2022-06-13] MEDS: hydrOXYzine HCL 25 MG TABLET PO ×2 (08:27→20:59)
[2022-06-13 09:03] VITALS: BP 88/52; PULSE 92; RESP 16; TEMP 36.1; O2SAT 96
[2022-06-13 16:30] VITALS: BP 98/56; PULSE 92
--- NOTE | 2022-06-13 16:53 | P.PNPSI_ITS ---
Subjective Subjective Date of Service: 06/13/22 Reason For Visit: Depression Subjective Notes: Conditional Voluntary Healthcare Proxy: No Guardianship: No Medical Problems Affecting Mental Status: No Interim History: Information submitted to pt's insurance company so medications may be continued. They verify that regime is covered by insurance, especially Vraylar. Pt preparing for discharge 06/15/22. More visable in milieu today and interactive. Pleased to be at the end of her admission. Medication Compliance: Yes Side effects from medications: No Attending Groups: Intermittent Review of Systems Acute medical concerns: No Medical Review of Systems: unchanged Mental Status Exam Mental Status Exam Patient Appearance: Appropriate Patient Orientation: Person, Place, Time and Situation Level of Consciousness: Alert Patient Behavior: Appropriate, Talkative, Cooperative and Good Eye Contact Mood Description: Apprehensive Affect Description: Apprehensive Patient Cognition Impaired: No Ability to Follow Directions: Good Speech Pattern: Spontaneous Speech Memory Description: Intact Hallucinations: None Delusions: Not Present Thought Process: Goal Oriented Thought Content: positive for Goal Oriented Depressive Symptoms: Increased Anxiety Abnormal Motor Activity Signs and Symptoms: Restlessness Judgement: Good Diagnostics Vital Signs (24Hr): Vital Signs - 24 hr 06/12/22 18:00 06/13/22 09:03 06/13/22 16:30 Temperature 97.7 F 97.0 F Pulse Rate 92 92 92 Respiratory Rate 16 Blood Pressure 110/58 L 88/52 L 98/56 L Pulse Oximetry 97 96 Oxygen Delivery Method Room Air Room Air BMI result Body Mass Index 21.4 Labs Results: 05/12/22 12:47 05/14/22 07:53 Medications Medications Current Medications Al Hydroxide/Mg Hydroxide (Magnesium Hydrox/Alum Hydrox 30 Ml Oral.Susp) 30 ml PO Q6H PRN PRN Reason: Heartburn/Nausea Cariprazine (Cariprazine Hcl 3 Mg Capsule) 3 mg PO DAILY [facility] Last Admin: 06/13/22 08:27 Dose: 3 mg Clonidine HCl (Clonidine Hcl 0.1 Mg Tablet) 0.1 mg PO Q4H PRN; Protocol PRN Reason: anxiety Last Admin: 06/13/22 04:09 Dose: 0.1 mg Cyanocobalamin (Cyanocobalamin (Vitamin B-12) 100 Mcg Tablet) 100 mcg PO DAILY ADORE Last Admin: 06/13/22 08:27 Dose: 100 mcg Divalproex Sodium (Divalproex Sodium Er 500 Mg Tab.Er.24h) 500 mg PO BEDTIME [facility]ORE Last Admin: 06/12/22 20:45 Dose: 500 mg Hydroxyzine HCl (Hydroxyzine Hcl 25 Mg Tablet) 25 mg PO BID ADORE Last Admin: 06/13/22 08:27 Dose: 25 mg Hydroxyzine HCl (Hydroxyzine Hcl 50 Mg Tablet) 50 mg PO Q6H PRN PRN Reason: Anxiety Last Admin: 05/24/22 02:24 Dose: 50 mg Ibuprofen (Ibuprofen 800 Mg Tablet) 800 mg PO Q8H PRN PRN Reason: Pain, Mild (Pain Scale 1-3) Last Admin: 05/22/22 14:11 Dose: 800 mg Magnesium Hydroxide (Milk Of Magnesia 30 Ml Oral.Susp) 30 ml PO DAILY PRN PRN Reason: Constipation Last Admin: 05/17/22 09:50 Dose: 30 ml Olanzapine (Olanzapine 2.5 Mg Tablet) 2.5 mg PO BID PRN PRN Reason: psychosis, severe anxiety Olanzapine (Olanzapine 2.5 Mg Tablet) 2.5 mg PO BEDTIME ADORE Last Admin: 06/12/22 20:45 Dose: 2.5 mg Prazosin HCl (Prazosin Hcl 1 Mg Capsule) 2 mg PO BEDTIME ADORE; Protocol Last Admin: 06/12/22 20:45 Dose: 2 mg Trazodone HCl (Trazodone Hcl 50 Mg Tablet) 50 mg PO BEDTIME PRN PRN Reason: Insomnia Last Admin: 05/18/22 20:47 Dose: 50 mg Allergies Allergies Allergy/AdvReac Type Severity Reaction Status Date / Time Penicillins AdvReac Unknown Verified 05/14/22 02:05 Assessment & Plan Assessment & Plan (1) Bipolar affective, manic, severe w/ psych: Status: Acute Code(s): F31.2 - Bipolar disorder, current episode manic severe with psychotic features Plan Admit to M5 15 minute checks Collaterals Start Zyprexa 10 mg HS and 5 mg BID PRN. Group and milieu treatment Disposition planning 05/15/22- Increase Olanzapine to 15 mg HS Begin reality testing with pt regarding Mr. Way's relationship as outlined in his email response. Three day notice, possible section seven 05/16/22- Depakote ER 500 mg HS Decrease Olanzapine to 10 mg HS 05/17/22- Continue current plan 05/19/22- Education regarding illness. Pt will see parents over the weekend. Team is looking at rehab possibilities. 05/20 guarded and not much for engaging; Continue current treatment plan 05/21 says she has bad anxiety -add clonidine 0.1 mg Q 4 p.r.n.; if BP too low can try 0.05 mg 05/22/22 continue current regime Pt/Family request [facility]. 05/23/22 Continue current regime-pt will not trial any changes. Family requests application for [employer] which team is working on. 05/24/22 Continue current regime-referral to [employer]. 05/25/22 Pt has identified her goals for [employer] application. 05/26/22 Pt anxious for discharge. She may have the option to stay at her grandmother's home in [place] prior to residential admission. Will see if this will effect program admit requirements. 05/27: Continue current regimen and plans. Add prazosin 2 mg q.h.s. 05/28: Continue current regimen and plans. No changes were made today 05/29/22: Discharge planning 06/01/22: Discharge planning, medication intervention and adjustment family concurs with to help pt better manage sx-pt to decide. 06/02/22: Vraylar 1.5 mg daily 06/03/22: lower olanzapine to 5mg (some restlessness having started vraylar) 06/04/2022: No changes to current plan 06/05/22: Continue current regime 06/06/22: Continue medication education, support, encourage treatment compliance. 06/07/22: Patient calm, reasonable in discussing medications. Record Clerk Salesperson ordered Depakote level and liver panel. While Depakote is subtherapeutic, AST and ALT are both elevated. It seems ALT was moderately elevated prior to starting Depakote however it has raised since. Record Clerk Salesperson discontinued acetaminophen for now. Record Clerk Salesperson is covering patient and not sure how imperative Depakote is to her stability. It is also possible that antipsychotic medication could be contributing to elevated liver enzymes. Will continue current regimen with changes detailed below. However will monitor her liver enzymes further and make sure stable. Increase Vraylar to 3 mg Decrease Zyprexa to 2.5 mg q.h.s. starting on 06/09 -Depakote level: 32.1, subtherapeutic -ammonia level: WNL -AST elevated at 42 -ALT elevated at 121 06/08 continue tx. 06/09/22: Continue current plan 06/10: Continue current plan. 06/11: Continue current treatment plan. 06/12/22: Pt accepted to [facility] after her interview. Discharge 06/15 Insurance PA for meds submitted. 06/13/22: Insurance authorized medications Discharge 06/15/22. Support pt in her transition I spent minutes with the patient and/or on the patient floor today, greater than?50% of which was spent counseling/coordinating care. Informed Consent: understands Reason for contiued inpatient stay Substantial Risk for: rapid decompensation
[2022-06-13] MEDS: Prazosin HCL 1 MG CAPSULE 2 MG PO (20:59)
[2022-06-13] MEDS: Divalproex Sodium ER 500 MG TAB.ER.24H PO (20:59)
[2022-06-13] MEDS: OLANZapine 2.5 MG TABLET PO (20:59)
[2022-06-14 08:00] VITALS: BP 110/66; PULSE 98; TEMP 36.3; O2SAT 97
[2022-06-14] MEDS: Cariprazine HCl 3 MG CAPSULE PO (09:08)
[2022-06-14] MEDS: Cyanocobalamin (Vitamin B-12) 100 MCG TABLET PO (09:08)
[2022-06-14] MEDS: hydrOXYzine HCL 25 MG TABLET PO ×2 (09:09→21:23)
--- NOTE | 2022-06-14 19:20 | P.PNPSI_ITS ---
Subjective Subjective Date of Service: 06/14/22 Reason For Visit: Depression Subjective Notes: Conditional Voluntary Healthcare Proxy: No Guardianship: No Medical Problems Affecting Mental Status: No Interim History: Planning discharge to home 06/15. Will admit to [facility] 06/21 she reports. Prepared, apprehensive, asked questions about [facility]. Discussed some of the writing, publishing opportunties she may have in program. Review of meds, utilization of her psychopharmacology appt. Medication Compliance: Yes Side effects from medications: No Attending Groups: Intermittent Review of Systems Acute medical concerns: No Medical Review of Systems: unchanged Mental Status Exam Mental Status Exam Patient Appearance: Appropriate Patient Orientation: Person, Place, Time and Situation Level of Consciousness: Alert Patient Behavior: Appropriate, Talkative, Cooperative and Good Eye Contact Mood Description: Apprehensive Affect Description: Apprehensive Patient Cognition Impaired: No Ability to Follow Directions: Good Speech Pattern: Spontaneous Speech Memory Description: Intact Hallucinations: None Delusions: Not Present Thought Process: Goal Oriented Thought Content: positive for Goal Oriented Depressive Symptoms: Increased Anxiety Abnormal Motor Activity Signs and Symptoms: Restlessness Judgement: Good Diagnostics Vital Signs (24Hr): Vital Signs - 24 hr 06/14/22 08:00 Temperature 97.3 F Pulse Rate 98 Blood Pressure 110/66 Pulse Oximetry 97 Oxygen Delivery Method Room Air BMI result Body Mass Index 21.4 Labs Results: 05/12/22 12:47 05/14/22 07:53 Medications Medications Current Medications Al Hydroxide/Mg Hydroxide (Magnesium Hydrox/Alum Hydrox 30 Ml Oral.Susp) 30 ml PO Q6H PRN PRN Reason: Heartburn/Nausea Cariprazine (Cariprazine Hcl 3 Mg Capsule) 3 mg PO DAILY [facility] Last Admin: 06/14/22 09:08 Dose: 3 mg Clonidine HCl (Clonidine Hcl 0.1 Mg Tablet) 0.1 mg PO Q4H PRN; Protocol PRN Reason: anxiety Last Admin: 06/13/22 21:07 Dose: 0.1 mg Cyanocobalamin (Cyanocobalamin (Vitamin B-12) 100 Mcg Tablet) 100 mcg PO DAILY [facility] Last Admin: 06/14/22 09:08 Dose: 100 mcg Divalproex Sodium (Divalproex Sodium Er 500 Mg Tab.Er.24h) 500 mg PO BEDTIME [facility] Last Admin: 06/13/22 20:59 Dose: 500 mg Hydroxyzine HCl (Hydroxyzine Hcl 25 Mg Tablet) 25 mg PO BID [facility] Last Admin: 06/14/22 09:09 Dose: 25 mg Hydroxyzine HCl (Hydroxyzine Hcl 50 Mg Tablet) 50 mg PO Q6H PRN PRN Reason: Anxiety Last Admin: 05/24/22 02:24 Dose: 50 mg Ibuprofen (Ibuprofen 800 Mg Tablet) 800 mg PO Q8H PRN PRN Reason: Pain, Mild (Pain Scale 1-3) Last Admin: 05/22/22 14:11 Dose: 800 mg Magnesium Hydroxide (Milk Of Magnesia 30 Ml Oral.Susp) 30 ml PO DAILY PRN PRN Reason: Constipation Last Admin: 05/17/22 09:50 Dose: 30 ml Olanzapine (Olanzapine 2.5 Mg Tablet) 2.5 mg PO BID PRN PRN Reason: psychosis, severe anxiety Olanzapine (Olanzapine 2.5 Mg Tablet) 2.5 mg PO BEDTIME [facility] Last Admin: 06/13/22 20:59 Dose: 2.5 mg Prazosin HCl (Prazosin Hcl 1 Mg Capsule) 2 mg PO BEDTIME [facility]; Protocol Last Admin: 06/13/22 20:59 Dose: 2 mg Trazodone HCl (Trazodone Hcl 50 Mg Tablet) 50 mg PO BEDTIME PRN PRN Reason: Insomnia Last Admin: 05/18/22 20:47 Dose: 50 mg Allergies Allergies Allergy/AdvReac Type Severity Reaction Status Date / Time Penicillins AdvReac Unknown Verified 05/14/22 02:05 Assessment & Plan Assessment & Plan (1) Bipolar affective, manic, severe w/ psych: Status: Acute Code(s): F31.2 - Bipolar disorder, current episode manic severe with psychotic features Plan Admit to [facility] 15 minute checks Collaterals Start Zyprexa 10 mg HS and 5 mg BID PRN. Group and milieu treatment Disposition planning 05/15/22- Increase Olanzapine to 15 mg HS Begin reality testing with pt regarding Mr. Way's relationship as outlined in his email response. Three day notice, possible section seven 05/16/22- Depakote ER 500 mg HS Decrease Olanzapine to 10 mg HS 05/17/22- Continue current plan 05/19/22- Education regarding illness. Pt will see parents over the weekend. Team is looking at rehab possibilities. 05/20 guarded and not much for engaging; Continue current treatment plan 05/21 says she has bad anxiety -add clonidine 0.1 mg Q 4 p.r.n.; if BP too low can try 0.05 mg 05/22/22 continue current regime Pt/Family request [facility]. 05/23/22 Continue current regime-pt will not trial any changes. Family requests application for [facility] [employer] [facility] which team is working on. 05/24/22 Continue current regime-referral to [employer] [facility]. 05/25/22 Pt has identified her goals for [employer] application. 05/26/22 Pt anxious for discharge. She may have the option to stay at her grandmother's home in [place] prior to residential admission. Will see if this will effect program admit requirements. 05/27: Continue current regimen and plans. Add prazosin 2 mg q.h.s. 05/28: Continue current regimen and plans. No changes were made today 05/29/22: Discharge planning 06/01/22: Discharge planning, medication intervention and adjustment family concurs with to help pt better manage sx-pt to decide. 06/02/22: Vraylar 1.5 mg daily 06/03/22: lower olanzapine to 5mg (some restlessness having started vraylar) 06/04/2022: No changes to current plan 06/05/22: Continue current regime 06/06/22: Continue medication education, support, encourage treatment compliance. 06/07/22: Patient calm, reasonable in discussing medications. Plastic Extrusion Operator ordered Depakote level and liver panel. While Depakote is subtherapeutic, AST and ALT are both elevated. It seems ALT was moderately elevated prior to starting Depakote however it has raised since. Plastic Extrusion Operator discontinued acetaminophen for now. Plastic Extrusion Operator is covering patient and not sure how imperative Depakote is to her stability. It is also possible that antipsychotic medication could be contributing to elevated liver enzymes. Will continue current regimen with changes detailed below. However will monitor her liver enzymes further and make sure stable. Increase Vraylar to 3 mg Decrease Zyprexa to 2.5 mg q.h.s. starting on 06/09 -Depakote level: 32.1, subtherapeutic -ammonia level: WNL -AST elevated at 42 -ALT elevated at 121 06/08 continue tx. 06/09/22: Continue current plan 06/10: Continue current plan. 06/11: Continue current treatment plan. 06/12/22: Pt accepted to [facility] after her interview. Discharge 06/15 Insurance PA for meds submitted. 06/13/22: Insurance authorized medications Discharge 06/15/22. Support pt in her transition 06/14/22: Discharge 06/15/22. I spent minutes with the patient and/or on the patient floor today, greater than?50% of which was spent counseling/coordinating care. Patient educated on: medication risk/benefits Informed Consent: understands Reason for contiued inpatient stay Substantial Risk for: rapid decompensation
[2022-06-14 21:20] VITALS: BP 107/65; PULSE 91; TEMP 36.3
[2022-06-14] MEDS: cloNIDine HCL 0.1 MG TABLET PO (21:22)
[2022-06-14] MEDS: Prazosin HCL 1 MG CAPSULE 2 MG PO (21:23)
[2022-06-14] MEDS: Divalproex Sodium ER 500 MG TAB.ER.24H PO (21:23)
[2022-06-14] MEDS: OLANZapine 2.5 MG TABLET PO (21:24)
[2022-06-15 06:00] VITALS: BP 107/55; PULSE 102; RESP 16; TEMP 36.6; O2SAT 97
[2022-06-15 07:00] VITALS: BMI 20.7
[2022-06-15] MEDS: Cariprazine HCl 3 MG CAPSULE PO (08:15)
[2022-06-15] MEDS: Cyanocobalamin (Vitamin B-12) 100 MCG TABLET PO (08:15)
[2022-06-15] MEDS: hydrOXYzine HCL 25 MG TABLET PO (08:15)
--- NOTE | 2022-06-15 10:50 | PM.PSYDC ---
DS: Providers Provider Date of Service: 06/15/22 Date of admission: 05/13/22 13:22 Date of discharge: 06/15/22 Primary care physician: Unknown Physician Admitting clinician: Garrett Richardson Attending physician on admission: Garrett Richardson Attending physician on discharge: Gray Dominique Discharging clinician: Sharon Peterson DS: Diagnosis Discharge Diagnosis (1) Bipolar affective, manic, severe w/ psych: Status: Acute DS: Medications Discharge Medications Home Medications: Previous Rx's Medication Instructions Recorded cariprazine 3 mg capsule (Vraylar) 3 mg PO DAILY #30 caps 06/13/22 clonidine HCl 0.1 mg tablet 0.1 mg PO Q4H PRN anxiety #30 tabs 06/13/22 cyanocobalamin (vitamin B-12) 100 1 tab PO DAILY #30 tabs 06/13/22 mcg tablet divalproex 500 mg tablet,extended 500 mg PO BEDTIME #30 tabs 06/13/22 release 24 hr hydroxyzine pamoate 25 mg capsule 1 cap PO BID #60 caps 06/13/22 prazosin 1 mg capsule 2 mg PO BEDTIME #30 caps 06/13/22 Mental Status Exam Mental Status Exam Patient Appearance: Appropriate Patient Orientation: Person, Place, Time and Situation Level of Consciousness: Alert Patient Behavior: Appropriate, Talkative, Cooperative and Good Eye Contact Mood Description: Apprehensive Affect Description: Apprehensive Patient Cognition Impaired: No Ability to Follow Directions: Good Speech Pattern: Spontaneous Speech Memory Description: Intact Hallucinations: None Delusions: Not Present Thought Process: Goal Oriented Thought Content: positive for Goal Oriented Depressive Symptoms: Increased Anxiety Abnormal Motor Activity Signs and Symptoms: Restlessness Judgement: Good Data Data Completed and Pending Completed studies during hospitalization [Text1]: 06/09/22 08:43 Total Bilirubin 0.8 Direct Bilirubin 0.3 AST 34 H ALT 84 H Alkaline Phosphatase 68 Total Protein 7.1 Albumin 4.4 DS: Summary Hospital Course Hospital Course: Admission to adult psychiatry for exacerbation of symptoms of bipolar disorder, [place] with psychosis. Pt came from [place], [place] to this area as she had attended college locally in the past. Pt was delusional, believing she came to the area to have a relationship with a professor who reported pt makes contact with him when ill however they have no ongoing relationship since pt completed her course work in one of his classes. Parents reported they were at a point where all they had tried to do to help pt did not work and they asked that we search for longer term treatment that they would support and finance, as all of their previous interventions had been unsuccessful. Pt was hesitant to take medications, as per her past experience she was not trusting of professionals, given her previous bad experiences. She agreed to Vraylar trial, which was tolerated. Olanzapine was effective, and was stopped on discharge. Low dose Depakote was used and pt found it helpful. We discussed that this should be a temporary intervention which she verbalized understanding. Clonidine prn and Prazosin prn were helpful as well. Vitamin B12 and Hydroxyzine were continued. Pt interviewed with [facility] and [facility]. She chose [facility] and will begin after having dental work done in [facility] this week. Time spent discussing smoking cessation with patient: 3 to 10 minutes Status at Discharge Functional status at discharge: independent ambulation Overall status at discharge: patient is progressing back to baseline Time Spent with Patient Time attestation: Total time spent providing and/or coordinating discharge services: 40 Time spent: Greater than 30 minutes Discharge Plan Discharge Anticipated Discharge Date/Time: 06/15/22 13:30 Patient Disposition: Home, Self-Care Discharge Diagnosis: Bipolar Disorder with psychosis Referrals: [facility] [Other] - 1 Week (Referral for [facility]) [facility] [Other] - 06/21/22 11:00 am (Referral for [facility] program Accepted to program with start date of 06/21/22. You need to arrive for admission at 11:00 am. Call account registration after discharge from [facility] to set up billing account. Send negative COVID-19 results prior to your arrival.) Physician,Unknown J [Primary Care Provider] - 1 Week Discharge Medications: New clonidine HCl 0.1 mg Tablet 0.1 mg PO Q4H PRN (Reason: anxiety) Qty: 30 0RF Protocol: Hold for SBP< HOLD for SBP < : 90 prazosin 1 mg Capsule 2 mg PO BEDTIME Qty: 30 0RF Protocol: Hold for SBP< HOLD for SBP < : 90 Vraylar 3 mg Capsule 3 mg PO DAILY Qty: 30 0RF divalproex 500 mg Tablet Extended Release 24 Hr 500 mg PO BEDTIME Qty: 30 0RF Continued cyanocobalamin (vitamin B-12) 100 mcg tablet 1 tab PO DAILY Qty: 30 0RF hydroxyzine pamoate 25 mg capsule 1 cap PO BID Qty: 60 0RF Discontinued olanzapine 10 mg tablet 1 tab PO BEDTIME Discharge Orders: Discharge Order (Routine); Ordered 06/15/22 Ordered By: Sharon Peterson Diet: Advance to usual diet Activity on Discharge: As tolerated Stand Alone Forms: Patient Portal Discharge page, Community Support Print Language: Mohawk Care Plan Goals: Maintain mood and stable behaviors Take medications as directed Practice coping skills Follow up with out patient referral appointments Health Concerns: Stable mood and behaviors Plan of Treatment: Follow up with out patient referral appointments Take medications as directed Assessment: Pt interviewed prior to discharge and found to be fully oriented and without any SI or HI. Pt has insight and demonstrates good judgment in terms of wanting to pursue treatment. Pt is not in imminent risk of harm to self or others and has a safety plan that includes presenting to the closest ER or calling 911 if feeling unsafe. Pt has been observed closely by nursing and unit staff throughout admission. Pt has not engaged in any behaviors that suggest dangerousness to self or others and has demonstrated appropriate behaviors and impulse control Patient Instructions: Psychiatric Hallucinations (ED) Discharge Date/Time: 06/15/22 12:54
== END 2022-06-15 12:54 | disposition home or self-care (01) | DRG 885 ==
LOC: HO.ED 05-13 13:18 → HO.PM5 05-13 13:26
PROVIDERS: Physician Assistant Medical; Psychiatry & Neurology Psychiatry; Admitting Provider Psychiatry & Neurology Psychiatry; Emergency Provider Emergency Medicine; Visit Provider Clinical Nurse Specialist Psychiatric/Mental Health, Adult
DX: F31.2 Bipolar disorder, current episode manic severe with psychotic features (principal); F43.10 Post-traumatic stress disorder, unspecified; Z20.822 Contact with and (suspected) exposure to COVID-19; Z88.0 Allergy status to penicillin; Z23 Encounter for immunization; Z87.891 Personal history of nicotine dependence; Z79.899 Other long term (current) drug therapy
CPT/HCPCS: 36415; 80053; 80061; 80076; 80143; 80164; 80179; 80307; 81003; 81025; 82077; 82140; 82607; 82746; 83036; 83735; 84439; 84443; 85025; 87635; 90686; 99285